=== PATIENT | female | born 1990 | race Caucasian/White ===

== ENCOUNTER → 2018-05-19 14:39 | Outpatient (CLI) | payer BC, SELFPAY ==
[2017-07-29 09:46] VITALS: BMI 56.0
[2018-05-19 15:23] LABS: Hematocrit 40.6 % (37-47); Hemoglobin 13.1 g/dl (12.0-15.0); Mean Corp Hgb Conc 32.3 g/gl (32-36); Mean Corpuscular Hgb 29.8 pg (27.0-32.0); Mean Corpuscular Volume 92.5 fL (81-99); Mean Platelet Vol. 12.5 fl (6.2-12.0); Platelet Count 254 K/mm3 (150-450); RBC Distribution Width CV 14.1 % (11.6-14.6); RBC Distribution Width SD 47.7 fl (35.1-43.9); Red Blood Count 4.39 M/mm3 (4.2-5.4); White Blood Count 6.3 K/mm3 (4.4-11.0)
[2018-05-19 15:24] LABS: Scan Indicated on CBC? Y/N NO
[2018-05-19 15:59] LABS: Vitamin B12 841 pg/mL (211-911)
[2018-05-19 16:33] LABS: AST(SGOT) 25 U/L (15-37); Alanine Aminotransfer ALT/SGPT 55 U/L (13-56); Albumin, Serum 3.7 g/dL (3.2-5.0); Alkaline Phosphatase 62 U/L (45-117); Anion Gap 7 (5-15); BUN 8 mg/dL (7-18); BUN/Creat Ratio 14.3 RATIO (10-20); Calcium,Total 8.8 mg/dL (8.5-10.1); Chloride 109 mmol/L (98-107); Creatinine, Serum 0.56 mg/dL (0.55-1.02); EST Glomerular Filtration Rate 139 mL/min (>60); Est Glom Filt Rate - Afr Amer 168 mL/min (>60); Ferritin 18 ng/mL (8-252); Globulin 3.6 g/dL (2.2-4.2); Glucose 83 mg/dL (74-106); Iron 55 ug/dL (50-170); Potassium 3.6 mmol/L (3.5-5.1); Protein, Total 7.3 g/dL (6.4-8.2); Sodium Level 143 mmol/L (136-145)
[2018-05-23 12:52] LABS: Zinc, Plasma or Serum 79 ug/dL (56-134)
--- OUTSIDE RECORDS SUMMARY | 2018-08-21 07:36 | XMS RPT_ITS | Clinical Summary ---
:1990 Author Organization [facility], [facility] Address [address] [place] [id number] Phone Care Team Providers Name Role Phone Ivelisse Albarran MD Unavailable Conditions or Problems Problem Name Problem Onset Status Entry Provider Comment Standard Annotate Code Date Date Description 73943184 Active Ivelisse Fischer depression (SN / Avis depression CT) Medications Medication Instructions Start Stop Generic Name [facility] Provider Date Date EFFEXOR XR 75 One tablet by / VENLAFAXINE HCL [id number] Ivelisse E MG [id number] mouth daily 16 Avis BUTCHER WELLBUTRIN XL One tablet by / BUPROPION HCL [id number] Ivelisse E 150 MG mouth daily 29 Avis BUTCHER [id number] CELEXA 20 MG One tablet by / CITALOPRAM [id number] Ivelisse Fischer TABS mouth daily 29 HYDROBROCARTER Albarran MD CELEXA 20 MG One tablet by CITALOPRAM [id number] Ivelisse Fischer TABS mouth daily HYDROCAL Albarran MD CELEXA 40 MG 1/2 tab daily / CITALOPRAM [id number] Ivelisse E TABS 29 HYDROBROCARTER Albarran MD CELEXA 40 MG 1/2 tab daily / CITALOPRAM [id number] Ivelisse Fischer TABS HYDROCAL Albarran MD WELLBUTRIN XL One tablet by BUPROPION HCL [id number] Ivelisse E 150 MG mouth daily Avis BUTCHER [id number] Medications Administered No information available. Allergies, Adverse Reactions, Alerts Observed no known allergies at Results Date Name Value Unit Range Flag Description Office Visit: depression MEDS REVIEW Done Documentation of current medications (procedure) FALLRSKASSES No Fall risk assessment ORALTOBACUSE Never Tobacco smoking status NHIS SMOK STATUS Never smoker Tobacco use [facility] Plan of Care Type Date Detail Appointment 11:30 AM Ivelisse Albarran MD, [address], [place], [address], Procedures No information available. Vital Signs Date Name Value Unit Description BMI (Body Mass Index) 54.22 kg/m2 Body Mass Index [Ratio] Body Temperature 98.7 [degF] temperature E&M Body Temperature 37.06 Sabrina temperature in centigrade E&M BP Diastolic 73 mm[Hg] blood pressure, diastolic - 8462-4 BP Systolic 139 mm[Hg] blood pressure, systolic - 8480-6 Heart Rate 76 /min pulse rate E&M - 8867-4 Height 67 [in_us] height E&M - 8302-2 Height 170.18 cm height in centimeters E&M Respiratory Rate 16 /min respiratory rate E&M - 9279-1 Weight Measured 346.2 [lb_av] weight E&M - 3141-9 Weight Measured 157.03 kg weight in kilograms E&M
--- OUTSIDE RECORDS SUMMARY | 2018-08-21 07:36 | XMS RPT_ITS | Clinical Summary ---
:1990 Author Organization [facility], [facility] Address [address] [place] [address] Phone Care Team Providers Name Role Phone Avis BUTCHER, Ivelisse Fischer Unavailable Conditions or Problems Problem Name Problem Onset Status Entry Provider Comment Standard Annotate Code Date Date Description [id number] Active Ivelisse Fischer depression (SN Avis depression CT) Medications Medication Instructions Start Stop Generic Name NDC Provider Date Date WELLBUTRIN XL One tablet by / BUPROPION HCL [id number] Ivelisse Fischer 150 MG mouth daily 29 Avis BUTCHER [id number] CELEXA 20 MG One tablet by / CITALOPRAM [id number] Ivelisse Fischer TABS mouth daily 29 HYDROBROMIDAaliyah Albarran MD CELEXA 40 MG 1/2 tab daily / CITALOPRAM [id number] Ivelisse Fischer TABS 29 HYDROBROCARTER Albarran MD CELEXA 40 MG 1/2 tab daily / CITALOPRAM [id number] Ivelisse Fischer TABS HYDROCAL Albarran MD Medications Administered No information available. Allergies, Adverse Reactions, Alerts Observed no known allergies at Results Date Name Value Unit Range Flag Description Office Visit: depression MEDS REVIEW Done Documentation of current medications (procedure) FALLRSKASSES No Fall risk assessment ORALTOBACUSE Never Tobacco smoking status NHIS SMOK STATUS Never smoker Tobacco use [facility] Plan of Care Type Date Detail Appointment 11:50 AM Ivelisse Albarran MD, [address] [place] [address], [address] Floor, [place], [address], Procedures No information available. Vital Signs Date [...]
--- OUTSIDE RECORDS SUMMARY | 2018-08-21 07:36 | XMS RPT_ITS ---
:1990 Author Organization OHIP Support Name Relationship Address Phone [place] Yañeza Unavailable Unavailable + Yañez, Nate Unavailable Unavailable + YAÑEZ, NATE Unavailable [address] + [place] [address] ROBERT ROCHA Unavailable [address] + [place] [address] UE Unavailable Unavailable Unavailable Yañez, Nate Unavailable Unavailable + Yañez, Nate Unavailable Unavailable + Yañez, Nate Unavailable Unavailable + Yañez, Nate Unavailable Unavailable + Yañez, Nate Unavailable Unavailable + Yañez, Nate Unavailable Unavailable + Yañez, Nate Unavailable Unavailable + Yañez, Nate Unavailable Unavailable + Yañez, Nate Unavailable Unavailable + Yañez, Nate Unavailable Unavailable + Yañez, Nate Unavailable Unavailable + YAÑEZ, NATE Unavailable [address] + [place] [address] UE Unavailable Unavailable Unavailable Yañez, Nate Unavailable Unavailable + Yañez, Nate Unavailable Unavailable + Yañez, Nate Unavailable Unavailable + Yañez, Nate Unavailable Unavailable + Yañez, Nate Unavailable Unavailable + Yañez, Nate Unavailable Unavailable + Yañez, Nate Unavailable Unavailable + Yañez, Nate Unavailable Unavailable + Yañez, Nate Unavailable Unavailable + Yañez, Nate Unavailable Unavailable + Yañez, Nate Unavailable Unavailable + Yañez, Nate Unavailable Unavailable + Yañez, Nate Unavailable Unavailable + Yañez, Nate Unavailable Unavailable + Yañez, Nate Unavailable Unavailable + Yañez, Nate Unavailable Unavailable + YAÑEZ, NATE Unavailable [address] [facility] [address] + [place] [address] UE Unavailable Unavailable Unavailable Care Team Providers Name Role Phone Duc Wolf Attending Unavailable Dane Vargas Referring Unavailable Neha, Karel Primary Care Unavailable Duc Wolf Attending Unavailable VidaltenbeDane barros Referring Unavailable [facility] Primary Care Unavailable BittenbendDane bucio Referring Unavailable Neha, [facility] Primary Care Unavailable Demar Rios Attending Unavailable Demar Rios Attending Unavailable BittenbendDane bucio Referring Unavailable [facility], Karel Primary Care Unavailable Demar Rios Attending Unavailable BittenbenderDane Referring Unavailable [facility] Mart[facility], Karel Primary Care Unavailable Demar Rios Attending Unavailable VidaltenbenderDane Referring Unavailable [facility], Karel Primary Care Unavailable Deamr Rios Attending Unavailable BittenbenderDane Referring Unavailable [facility], Karel Primary Care Unavailable Demar Rios Attending Unavailable BittenbenderDane Referring Unavailable [facility], Karel Primary Care Unavailable Demar Rios Attending Unavailable BittenbenderDane Referring Unavailable Neha, Karel Primary Care Unavailable Margarita Miller Attending Unavailable Vidaltenbender, Dane Referring Unavailable [facility], Karel Primary Care Unavailable BittenbendDane bucio Referring Unavailable Neha, Karel Primary Care Unavailable Duc Wolf Attending Unavailable Duc Wolf Attending Unavailable CliffordbendDane bucio Referring Unavailable Neha, Karel Primary Care Unavailable BittenbendDane bucio Referring Unavailable [facility] Martins, Karel Primary Care Unavailable NING SOTO Attending Unavailable BittenbenderDane Referring Unavailable [facility], Karel Primary Care Unavailable Margarita Miller Attending Unavailable Bittenbender, Dane Referring Unavailable Neha, Karel Primary Care Unavailable Margarita Miller Attending Unavailable BRIDLE, NING Posey Attending Unavailable Bittenbender, Dane Referring Unavailable [facility] Martins, Karel Primary Care Unavailable Margarita Miller Attending Unavailable Bittenbender, Dane Referring Unavailable Neha, Karel Primary Care Unavailable BRIDLE, NING Posey Attending Unavailable Bittenbender, Dane Referring Unavailable [facility] Martins, Karel Primary Care Unavailable Zografakis, Duc Attending Unavailable Bittenbender, Dane Referring Unavailable Neha, Karel Primary Care Unavailable Zografakis, Duc Attending Unavailable Bittenbender, Dane Referring Unavailable [facility] Martins, Karel Primary Care Unavailable Zografakis, Duc Attending Unavailable Bittenbender, Dane Referring Unavailable [facility] Martins, Karel Primary Care Unavailable Bittenbender, Dane Referring Unavailable [facility] Mart[facility], Karel Primary Care Unavailable Zografakis, Duc Attending Unavailable Bittenbender, Dane Referring Unavailable Neha, Karel Primary Care Unavailable Zografakis, Duc Attending Unavailable Bittenbender, Dane Referring Unavailable Neha, Karel Primary Care Unavailable Zografakis, Duc Attending Unavailable Bittenbender, Dane Referring Unavailable Neha, Karel Primary Care Unavailable Alfreda Marques Attending Unavailable Bittenbender, Peter Referring Unavailable [facility] Mart[facility], Karel Primary Care Unavailable BRIDLE, NING Posey Attending Unavailable BRIDLE, NING Posey Attending Unavailable Bittenbender, Dane Referring Unavailable [facility], Karel Primary Care Unavailable BRIDLE, NING Posey Attending Unavailable Bittenbender, Dane Referring Unavailable [facility], Karel Primary Care Unavailable BRIDLE, NING Posey Attending Unavailable Bittenbender, Dane Referring Unavailable Neha, [facility] Primary Care Unavailable Bridle, Ning [employer] Attending Unavailable Bridle, Ning [employer] Referring Unavailable Neha, [facility] Primary Care Unavailable Mona Nazario Attending Unavailable Neha, Karel Referring Unavailable Ivelisse Albarran Attending Unavailable [facility], Karel Referring Unavailable PROBLEMS PROBLEMS DATE TYPE CONDITION / CODE ATTENDING STATUS SOURCE 05/22/2018 Admitting Gastro-esophageal NING SOTO [facility] Diagnosis reflux disease R. System without esophagitis Repository / K21.9(ICD-10) 05/22/2018 Admitting Morbid (severe) NING SOTO Active [facility] Diagnosis obesity due to R. System excess calories / Repository E66.01(ICD-10) 05/22/2018 Admitting Vitamin D NING SOTO Active [facility] Diagnosis deficiency, R. System unspecified / Repository E55.9(ICD-10) 05/22/2018 Admitting Deficiency of NING SOTO Active [facility] Diagnosis multiple nutrient R. 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 System unspecified / Repository K90.9(ICD-10) 05/22/2018 Admitting Body mass index ANUPAMA SOTOA Active [facility] Diagnosis (BMI) 40.0-44.9, R. System adult / Repository Z68.41(ICD-10) 05/22/2018 Admitting Encounter for other NING SOTO Active [facility] Diagnosis specified surgical R. System aftercare / Repository Z48.89(ICD-10) 05/19/2018 Unknown K90.9 - Intestinal Ning Soto Active [place] malabsorption, [employer] Community unspecified / Hospital K90.9(ICD-10) Repository 04/16/2018 Admitting Shortness of breath Zografakis, Active [facility] Diagnosis / R06.02(ICD-10) Duc System Repository 04/16/2018 Admitting Candidal stomatitis Zografakis, Active [facility] Diagnosis / B37.0(ICD-10) Duc System Repository 04/16/2018 Admitting Bariatric surgery Zografakis, Active [facility] Diagnosis status / Duc System Z98.84(ICD-10) Repository 04/09/2018 Admitting Gastro-esophageal Zografakis, Active [facility] Diagnosis reflux disease with Udc System esophagitis / Repository K21.0(ICD-10) 04/09/2018 Admitting Encounter for Zografakis, Active [facility] Diagnosis immunization / Duc System Z23(ICD-10) Repository 04/09/2018 Admitting Body mass index Zografakis, Active [facility] Diagnosis (BMI) 45.0-49.9, Duc System adult / Repository Z68.42(ICD-10) 04/09/2018 Admitting Fatty (change of) Zografakis, Active [facility] Diagnosis liver, not Duc System elsewhere Repository classified / K76.0(ICD-10) 04/09/2018 Admitting Diaphragmatic Zografakis, Active [facility] Diagnosis hernia without Duc System obstruction or Repository gangrene / K44.9(ICD-10) 04/09/2018 Admitting Major depressive Zografakis, Active [facility] Diagnosis disorder, single Duc System episode, Repository unspecified / F32.9(ICD-10) 03/06/2018 Admitting Prediabetes / BRIDLE, NING Active [facility] Diagnosis R73.03(ICD-10) R. System Repository 03/06/2018 Admitting Encounter for BRIDLE, NING Active [facility] Diagnosis screening for R. System diabetes mellitus / Repository Z13.1(ICD-10) 03/06/2018 Admitting Panic disorder Zografakis, Active [facility] Diagnosis [episodic Duc System paroxysmal anxiety] Repository / F41.0(ICD-10) 03/06/2018 Admitting Acute gastritis Zografakis, Active [facility] Diagnosis without bleeding / Duc System K29.00(ICD-10) Repository 03/06/2018 Admitting Body mass index Zografakis, Active [facility] Diagnosis (BMI) 50-59.9, Duc System adult / Repository Z68.43(ICD-10) 01/24/2018 Admitting Encounter for other Zografakis, Active [facility] Diagnosis preprocedural Duc System examination / Repository Z01.818(ICD-10) 12/24/2017 Admitting Body mass index Demar Rios Active [facility] Diagnosis (BMI) 50-59.9 , System adult / Repository Z68.43(ICD-10) 12/24/2017 Admitting Other fatigue / Demar Rios Active [facility] Diagnosis R53.83(ICD-10) System Repository 12/13/2017 Admitting Other specified Miller, Active [facility] Diagnosis eating disorder / Margarita System F50.89(ICD-10) Repository 12/13/2017 Admitting Major depressive Paul, Active [facility] Diagnosis disorder, single Margarita System episode, moderate / Repository F32.1(ICD-10) 11/26/2017 Admitting Obesity, Demar Rios Active [facility] Diagnosis unspecified / System E66.9(ICD-10) Repository 11/26/2017 Admitting Dorsalgia, BRIDLE, NING Active [facility] Diagnosis unspecified / R. System M54.9(ICD-10) Repository 11/26/2017 Admitting Unspecified BRIDLE, NING Active [facility] Diagnosis abdominal pain / R. System R10.9(ICD-10) Repository 11/05/2017 Admitting Unspecified chronic Zografakis, Active [facility] Diagnosis gastritis without Udc System bleeding / Repository K29.50(ICD-10) 11/05/2017 Admitting Other amnesia / Zografakis, Active [facility] Diagnosis R41.3(ICD-10) Duc System Repository 11/05/2017 Admitting Other reduced Zografakis, Active [facility] Diagnosis mobility / Duc System Z74.09(ICD-10) Repository PROCEDURES PROCEDURES No Procedure Records FoundRESULTS RESULTS CBC-COMPLETE BLOOD CNT Collected: 05/19/2018 Status: F Source: JEROME NO DIFF 2:51 PM [facility] REPOSITORY TYPE CODE TESTS RESULT OUT OF RANGE REFERENCE UNITS LAB L100.1000 4.4-11.0 K/mm3 Normal WBC 6.3 LAB L100.1200 4.2-5.4 M/mm3 Normal RBC 4.39 LAB L100.1300 12.0-15.0 g/dl Normal HGB 13.1 LAB L100.1400 37-47 % Normal HCT 40.6 LAB L100.1500 81-99 fL Normal MCV 92.5 LAB L100.1600 27.0-32.0 pg Normal MCH 29.8 LAB L100.1700 32-36 g/gl Normal MCHC 32.3 LAB L100.1810 11.6-14.6 % Normal RDW CV 14.1 LAB L100.1820 35.1-43.9 fl High RDW SD 47.7 LAB L100.1900 150-450 K/mm3 Normal PLT 254 LAB L100.2000 6.2-12.0 fl High MPV 12.5 Performed By: #### L100.0500 #### [facility] [address] [place], [address] VITAMIN B12 Collected: 05/19/2018 Status: F Source: JEROME 2:51 PM [facility] REPOSITORY TYPE CODE TESTS RESULT OUT OF RANGE REFERENCE UNITS LAB L503.0105 211-911 pg/mL Normal Vitamin B12 841 Performed By: #### L503.0105 #### [facility] [address] [place], [place], [id number] COMPREHENSIVE METABOLIC Collected: 05/19/2018 Status: F Source: JEROME VALVERDE 2:51 PM [facility] REPOSITORY Order Comment: Is Patient Taking Vitamins or Folic Acid Supplements? N TYPE CODE TESTS RESULT OUT OF RANGE REFERENCE UNITS LAB L501.0100 74-106 mg/dL Normal GLU 83 Result Comment: Please note revised GLUCOSE reference range effective 2017. LAB L501.1000 7-18 mg/dL Normal BUN 8 LAB L501.1100 0.55-1.02 mg/dL Normal CREAT,SERUM 0.56 Result Comment: The validity of the calculated GFR AND GFRAA in patients over 70 years has not been determined. Clinical correlation is essential. LAB L501.1110 >60 mL/min Normal EST GFR 139 Result Comment: Non- GFR Calc LAB L501.1115 >60 mL/min Normal EST GFR - AA 168 Result Comment: GFR Calc LAB L501.1300 10-20 RATIO Normal BUN/CRE 14.3 LAB L501.1500 6.4-8.2 g/dL T Normal PROT 7.3 LAB L501.1800 3.2-5.0 g/dL Normal ALB 3.7 LAB L501.1950 2.2-4.2 g/dL Normal GLOB 3.6 LAB L501.2000 0.9-2.4 RATIO Normal A/G 1.0 LAB L501.2200 8.5-10.1 mg/dL CA Normal 8.8 LAB L501.4100 15-37 U/L Normal AST 25 LAB L501.4305 45-117 U/L Normal ALK P 62 LAB L501.4405 13-56 U/L Normal ALT 55 LAB L501.4600 0.20-1.00 mg/dL T Normal BILI 0.40 LAB L501.5300 136-145 mmol/L NA Normal 143 LAB L501.5600 3.5-5.1 mmol/L K Normal 3.6 LAB L501.5900 98-107 mmol/L High CL 109 LAB L501.6100 21.0-32.0 mmol/L Normal CO2 27.0 LAB L501.6200 5-15 Normal GAP 7 Performed By: #### L500.4050, L501.5200, L503.6150, L503.6550, L506.0250 #### [facility] [address] [place], [address] MAGNESIUM Collected: 05/19/2018 Status: F Source: [place] 2:51 PM [facility] REPOSITORY Order Comment: Is Patient Taking Vitamins or Folic Acid Supplements? N TYPE CODE TESTS RESULT OUT OF RANGE REFERENCE UNITS LAB L501.5200 1.6-2.6 mg/dL Normal MG 2.0 Performed By: #### L500.4050, L501.5200, L503.6150, L503.6550, L506.0250 #### [facility] [address] [place], [address] IRON Collected: 05/19/2018 Status: F Source: [place] 2:51 PM [facility] REPOSITORY Order Comment: Is Patient Taking Vitamins or Folic Acid Supplements? N TYPE CODE TESTS RESULT OUT OF RANGE REFERENCE UNITS LAB L503.6150 50-170 ug/dL Normal IRON 55 Performed By: #### L500.4050, L501.5200, L503.6150, L503.6550, L506.0250 #### [facility] [address] [place], [address] FERRITIN Collected: 05/19/2018 Status: F Source: [place] 2:51 PM [facility] REPOSITORY Order Comment: Is Patient Taking Vitamins or Folic Acid Supplements? N TYPE CODE TESTS RESULT OUT OF RANGE REFERENCE UNITS LAB L503.6550 8-252 ng/mL Normal FERRITIN 18 Performed By: #### L500.4050, L501.5200, L503.6150, L503.6550, L506.0250 #### [facility] [address] [place], [address] FOLATES, (FOLIC ACID) Collected: 05/19/2018 Status: F Source: [place] 2:51 PM [facility] REPOSITORY Order Comment: Is Patient Taking Vitamins or Folic Acid Supplements? N TYPE CODE TESTS RESULT OUT OF RANGE REFERENCE UNITS LAB L506.0250 3.1-55.4 ng/mL Normal FOLATES 25.10 Performed By: #### L500.4050, L501.5200, L503.6150, L503.6550, L506.0250 #### [facility] [place], [address] ZINC, PLASMA OR Collected: 05/19/2018 Status: F Source: [place] SERUM 2:51 PM [facility] REPOSITORY TYPE CODE TESTS RESULT OUT OF RANGE REFERENCE UNITS LAB L3300.9900 56-134 ug/dL Normal ZINC 79 Plasma/Ser Result Comment: Detection Limit = 5 Performed at: [facility] [address] [id number] Regulatory Auditor: Domo Tamayo MD, Phone: [phone] Performed By: #### L3300.9900 #### [facility] (refer to report for specific site) refer to report for address and phone number DISCHARGE SUMMARY Observed: 04/11/2018 Status: F Source: [employer] 6:19 PM SYSTEM REPOSITORY Discharge Summary Eyad Yañez : 1990 ADMIT DATE: 04/09/2018 DISCHARGE DATE: 04/11/2018 PRIMARY CARE PHYSICIAN: Karel Solomon MD VISIT STATUS: Admission DISCHARGE DIAGNOSES: Principal Problem: Morbid obesity with BMI of 45.0-49.9, adult (HCC) Active Problems: Morbid obesity (HCC) Gastroesophageal reflux disease with esophagitis Hepatic steatosis Hiatal hernia Resolved Problems: * No resolved hospital problems. * HOSPITAL COURSE: Patient was taken to the OR on 11/ for a laparoscopic yair-en-y gastric bypass. Patient tolerated the procedure well without any complications and was admitted to a general surgical floor in stable condition. An UGI was obtained on POD #1 which did not identify any extravasation or leaks. Diet was advanced to a bariatric clear liquid diet which the patient tolerated. The packing was removed on POD#2. SAMEERA removed. Patient was discharged in stable condition on POD#2. DISCHARGE MEDICATIONS: Eyad Yañez Home Medication Instructions ALVAREZ:[id number] Printed on:04/11/18 0131 Medication Information enoxaparin (LOVENOX) 60 MG/0.6ML injection Inject 0.6 mLs into the skin 2 times daily for 10 days omeprazole (PRILOSEC) 20 MG delayed release capsule Take 1 capsule by mouth daily oxyCODONE-acetaminophen (PERCOCET) 5-325 MG per tablet Take 1-2 tablets by mouth every 6 hours as needed for Pain for up to 7 days. Intended supply: 7 days. Take lowest dose possible to manage pain. traZODone (DESYREL) 100 MG tablet Take 100 mg by mouth nightly VITAMIN D, CHOLECALCIFEROL, PO Take 4,000 Int'l Units by mouth daily DIET: bariatric clears ACTIVITY: No restriction. No heavy lifting. up with assist No driving while taking pain medication SIGNIFICANT DIAGNOSTIC STUDIES: UGI-normal COMPLEXITY OF FOLLOW UP: [x] Moderate Complexity: follow up within 7-14 calendar days (55237) PENDING STUDIES: none RECOMMENDED NEXT STEPS: F/u 1 week w/ Dr. Wolf DISPOSITION: Home SIGNED: Esdras Parks MD 04/11/2018, 11:25 PM HEMOGLOBIN AND Collected: 04/11/2018 Status: F Source: [employer] HEMATOCRIT 12:04 PM SYSTEM REPOSITORY TYPE CODE TESTS RESULT OUT OF RANGE REFERENCE UNITS LAB HGB 11.7-16.0 g/dL Normal Hemoglobin 11.7 LAB HCT 35.0-47.0 % Normal Hematocrit 35.3 Performed By: #### HGHCT, BMP3 #### [facility] [address] [place] [phone] BASIC METABOLIC PANEL Collected: 04/11/2018 Status: F Source: [employer] 12:04 PM SYSTEM REPOSITORY TYPE CODE TESTS RESULT OUT OF RANGE REFERENCE UNITS LAB NA3 137-145 mmol/L Sodium Normal 139 LAB K3 3.5-5.1 mmol/L Normal Potassium 4.1 LAB CL3 98-107 mmol/L High Chloride 108 LAB CO23 22-30 mmol/L Carbon Normal Dioxide 25 LAB ANIN3 NA Anion Gap 6 LAB GLUC3 70-100 mg/dL Glucose Normal 97 LAB BUN3 7-20 mg/dL Urea Normal Nitrogen 12 LAB CRET3 0.52-1.25 mg/dL Normal Creatinine 0.62 LAB GF3BR >60 mL/min eGFR > 60.0 LAB GF3WR >60 mL/min eGFR OTHER > 60.0 Result Comment: Source- MDRD equation with creatinine calibration to IDMS(NKDEP) eGFR not recommended for drug dose adjustment LAB CA3 8.4-10.4 mg/dL Normal Calcium 9.1 Performed By: #### HGHCT, BMP3 #### [facility] [address] [place] [address] GLUCOSE,BEDSIDE Collected: 04/11/2018 Status: F Source: [employer] 6:14 AM SYSTEM REPOSITORY TYPE CODE TESTS RESULT OUT OF RANGE REFERENCE UNITS LAB BGLU 70-100 mg/dL Normal 93 Glucose,Beds yehuda Result Comment: Test performed by glucose meter. Results may be 10%-15% lower than serum/plasma values. (CLIA ID [id number]) Performed By: #### BGLU #### [facility] [address] [place] [phone] HEMOGRAM W/ AUTODIFF Collected: 04/11/2018 Status: F Source: [employer] 3:22 AM SYSTEM REPOSITORY TYPE CODE TESTS RESULT OUT OF REFERENCE UNITS RANGE LAB IWBC 3.6-10.7 10*3/uL WBC Normal 9.1 LAB RBC 3.80-5.20 10*6/uL Low RBC 3.36 LAB HGB 11.7-16.0 g/dL Low Hemoglobin 10.3 LAB HCT 35.0-47.0 % Low Hematocrit 30.9 LAB MCV 79.0-98.0 fL MCV Normal 91.9 LAB MCH 26.0-34.0 pg MCH Normal 30.6 LAB MCHC 32.0-36.0 % MCHC Normal 33.3 LAB RDW 11.5-14.5 % RDW Normal 13.9 LAB PLT 140-440 10*3/uL Platelet Normal 161 LAB MPV 7.4-10.4 fL MPV High 11.5 LAB GRAN% 40.0-80.0 % Granulocytes Normal 73.4 LAB LYMP% 20.0-40.0 % Low Lymphocytes 18.2 LAB MONO% 2.0-10.0 % Monocytes Normal 7.8 LAB EOS% 1.0-6.0 % Low Eosinophils 0.4 LAB BAS% 0.0-2.0 % Basophils Normal 0.2 LAB ANC 1.8-7.0 10*3/uL Abs Normal Neutrophile Cnt 6.7 LAB ALC 1.0-4.3 10*3/uL Abs Lymph Cnt Normal 1.7 LAB AMC 0.0-0.8 10*3/uL Abs Monocyte Normal Cnt 0.7 LAB AEC 0.0-0.5 10*3/uL Abs Eosin Cnt Normal 0.0 LAB ABC 0.0-0.2 10*3/uL Abs Baso Cnt Normal 0.0 Performed By: #### HEMDF #### [facility] [address] [place] [phone] RF UGI W/O KUB W/ Observed: 04/10/2018 Status: F Source: [employer] OR W/O DELAY FLM 8:12 AM SYSTEM REPOSITORY Patient Name: EYAD YAÑEZ Fluoroscopy Exam Date/Time 04/10/2018 08:04:29 EST Exam RF UGI w/o KUB and w/ or w/o Delay Flm Ordering Physician MD CARDOZO KELLEN Accession Number [id number] [facility] Codes 52254 () Reason For Exam s/p LRYGB Report GASTROGRAFIN UPPER GI SERIES CLINICAL INDICATION: S/P gastric bypass, postop, day one. Evaluate for leak. COMPARISON: None TECHNIQUE: Gastrografin was administered in the upright position. FLUOROSCOPY TIME: 0.5 minutes FLUOROSCOPIC IMAGES: 19 fluoroscopic spot images were obtained. FINDINGS: Gastrografin was administered orally to the patient in the upright position. The esophagus is of normal course and caliber with no evidence of perforation or extravasation. The gastrojejunostomy is patent with no sign of extravasation or obstruction. The contrast empties readily from the gastric pouch into the jejunum. The jejunal jejunostomy is identified and shows free flow of contrast beyond the metallic clips that identify the anastomosis. There is no sign of obstruction. A surgical drain is noted in the left upper quadrant. IMPRESSION: Post-op changes consistent with gastric bypass surgery. No sign of extravasation or obstruction. Report Dictated on Final Dictated: 04/10/2018 7:32 am Dictating Physician: MD RIBEIRO BRIAN Signed Date and Time: 04/10/2018 11:54 am Signed by: MD QUINTIN, EDITH Transcribed Date and Time: 04/10/2018 8:12 HEMOGRAM W/ AUTODIFF Collected: 04/10/2018 Status: F Source: [employer] 12:36 AM SYSTEM REPOSITORY TYPE CODE TESTS RESULT OUT OF REFERENCE UNITS RANGE LAB IWBC 3.6-10.7 10*3/uL WBC High 20.3 LAB RBC 3.80-5.20 10*6/uL RBC Normal 4.28 LAB HGB 11.7-16.0 g/dL Hemoglobin Normal 12.9 LAB HCT 35.0-47.0 % Hematocrit Normal 38.7 LAB MCV 79.0-98.0 fL MCV Normal 90.5 LAB MCH 26.0-34.0 pg MCH Normal 30.2 LAB MCHC 32.0-36.0 % MCHC Normal 33.4 LAB RDW 11.5-14.5 % RDW Normal 13.6 LAB PLT 140-440 10*3/uL Platelet Normal 183 LAB MPV 7.4-10.4 fL MPV High 11.1 LAB GRAN% 40.0-80.0 % Granulocytes High 94.9 LAB LYMP% 20.0-40.0 % Low Lymphocytes 2.3 LAB MONO% 2.0-10.0 % Monocytes Normal 2.7 LAB EOS% 1.0-6.0 % Low Eosinophils 0.0 LAB BAS% 0.0-2.0 % Basophils Normal 0.1 LAB ANC 1.8-7.0 10*3/uL Abs High Neutrophile Cnt 19.3 LAB ALC 1.0-4.3 10*3/uL Low Abs Lymph Cnt 0.5 LAB AMC 0.0-0.8 10*3/uL Abs Monocyte Normal Cnt 0.6 LAB AEC 0.0-0.5 10*3/uL Abs Eosin Cnt Normal 0.0 LAB ABC 0.0-0.2 10*3/uL Abs Baso Cnt Normal 0.0 Performed By: #### HEMDF, BMP3, MG3 #### [facility] [address] [place] [phone] BASIC METABOLIC PANEL Collected: 04/10/2018 Status: F Source: [employer] 12:36 AM SYSTEM REPOSITORY TYPE CODE TESTS RESULT OUT OF RANGE REFERENCE UNITS LAB NA3 137-145 mmol/L Sodium Normal 138 LAB K3 3.5-5.1 mmol/L Normal Potassium 4.0 LAB CL3 98-107 mmol/L Chloride Normal 104 LAB CO23 22-30 mmol/L Low Carbon Dioxide 21 LAB ANIN3 NA Anion Gap 13 LAB GLUC3 70-100 mg/dL High Glucose 111 LAB BUN3 7-20 mg/dL Urea Normal Nitrogen 11 LAB CRET3 0.52-1.25 mg/dL Normal Creatinine 0.53 LAB GF3BR >60 mL/min eGFR > 60.0 LAB GF3WR >60 mL/min eGFR OTHER > 60.0 Result Comment: Source- MDRD equation with creatinine calibration to IDMS(NKDEP) eGFR not recommended for drug dose adjustment LAB CA3 8.4-10.4 mg/dL Normal Calcium 9.0 Performed By: #### HEMDF, BMP3, MG3 #### [facility] [address] [place] [phone] MAGNESIUM Collected: 04/10/2018 Status: F Source: [employer] 12:36 AM SYSTEM REPOSITORY TYPE CODE TESTS RESULT OUT OF RANGE REFERENCE UNITS LAB MG3 1.6-2.3 mg/dL Normal Magnesium 2.1 Performed By: #### HEMDF, BMP3, MG3 #### [facility] [address] [place] [phone] HEMOGRAM Collected: 04/09/2018 Status: F Source: [employer] 4:18 PM SYSTEM REPOSITORY TYPE CODE TESTS RESULT OUT OF RANGE REFERENCE UNITS LAB IWBC 3.6-10.7 10*3/uL High WBC 18.0 LAB RBC 3.80-5.20 10*6/uL RBC Normal 4.67 LAB HGB 11.7-16.0 g/dL Normal Hemoglobin 14.1 LAB HCT 35.0-47.0 % Normal Hematocrit 42.3 LAB MCV 79.0-98.0 fL MCV Normal 90.6 LAB MCH 26.0-34.0 pg MCH Normal 30.1 LAB MCHC 32.0-36.0 % MCHC Normal 33.2 LAB RDW 11.5-14.5 % RDW Normal 13.7 LAB PLT 140-440 10*3/uL Platelet Normal 201 LAB MPV 7.4-10.4 fL High MPV 10.6 Performed By: #### HEMOG, MG3, BMP3, PHOS3 #### [facility] [address] [place] [phone] MAGNESIUM Collected: 04/09/2018 Status: F Source: [employer] 4:18 PM SYSTEM REPOSITORY TYPE CODE TESTS RESULT OUT OF RANGE REFERENCE UNITS LAB MG3 1.6-2.3 mg/dL Normal Magnesium 2.2 Performed By: #### HEMOG, MG3, BMP3, PHOS3 #### [facility] [employer] [address] [phone] BASIC METABOLIC PANEL Collected: 04/09/2018 Status: F Source: [employer] 4:18 PM SYSTEM REPOSITORY TYPE CODE TESTS RESULT OUT OF RANGE REFERENCE UNITS LAB NA3 137-145 mmol/L Low Sodium 136 LAB K3 3.5-5.1 mmol/L Normal Potassium 4.2 LAB CL3 98-107 mmol/L Chloride Normal 104 LAB CO23 22-30 mmol/L Low Carbon Dioxide 20 LAB ANIN3 NA Anion Gap 12 LAB GLUC3 70-100 mg/dL High Glucose 131 LAB BUN3 7-20 mg/dL Urea Normal Nitrogen 11 LAB CRET3 0.52-1.25 mg/dL Normal Creatinine 0.66 LAB GF3BR >60 mL/min eGFR > 60.0 LAB GF3WR >60 mL/min eGFR OTHER > 60.0 Result Comment: Source- MDRD equation with creatinine calibration to IDMS(NKDEP) eGFR not recommended for drug dose adjustment LAB CA3 8.4-10.4 mg/dL Normal Calcium 9.2 Performed By: #### HEMOG, MG3, BMP3, PHOS3 #### [facility] [employer] [address] [phone] PHOSPHORUS Collected: 04/09/2018 Status: F Source: [employer] 4:18 PM SYSTEM REPOSITORY TYPE CODE TESTS RESULT OUT OF RANGE REFERENCE UNITS LAB PHOS3 2.5-4.5 mg/dL Normal Phosphorus 4.1 Performed By: #### HEMOG, MG3, BMP3, PHOS3 #### [facility] [employer] [address] [phone] Observed: 04/09/2018 Status: F Source: [facility] 2:19 PM SYSTEM REPOSITORY [id number] [facility] PATHOLOGY AND LABORATORY MEDICINE [address] [place] [address] [place] [address] FINAL SURGICAL PATHOLOGY REPORT NAME: BRANDI EYAD Dubose Juan Carlos [id number] : 1990 Y Ollie CLEMENTS NO.: [id number] LOCATION: [facility] PROCEDURE 04/09/2018 DATE: SURGEON: DUC WOLF M.D. RECEIVED 04/10/2018 DATE: ATTENDING: DUC WOLF M.D. REPORT DATE: 04/25/2018 COPIES TO: DIAGNOSIS: LIVER BIOPSY - FRAGMENTS OF HEPATIC PARENCHYMA WITH MILD MACROVESICULAR AND MICROVESICULAR STEATOSIS. COMMENT: The liver biopsy shows approximately 25% macrovesicular and microvesicular steatosis. There is no increased storage iron on the iron stain. Trichrome stain shows no evidence of significant fibrosis. NEREIDA/PHILIPP <Sign Out Signature> MARCO ANTONIO VASQUEZ M.D. CLINICAL INFORMATION: Morbid obesity SPECIMEN: LIVER NEEDLE OR WEDGE BIOPSY, MEDICAL GROSS DESCRIPTION: Liver biopsy Received in formalin is a yellow-mayorga to red-mayorga tissue segment 0.6 cm in greatest dimension. Submitted in toto. (1 ns, 1) JCK/COOPER Disclaimer: The following statement applies to all immunohistochemistry, in situ hybridization, molecular studies, and immunofluorescence testing. The use of one or more reagents in the above tests is regulated as an analyte specific reagent (ASR). These tests were developed and their performance characteristics determined by the clinical laboratories of [facility] [employer] [facility]. They have not been cleared by the US Food and Drug Administration (FDA). The FDA has determined that such clearance or approval is not necessary. All the above immunostains were performed on paraffin embedded tissue. Appropriate positive and negative controls (where applicable) were run in parallel with the patient's specimen; these controls showed expected staining pattern, with acceptable intensity of staining. Immunohistochemical assays have not been validated on decalcified tissues. Results should be interpreted with caution given the raised possibility of false negativity on decalcified specimens. Professional Performing Location: [place] [address]. DEPARTMENT OF PATHOLOGY AND LABORATORY MEDICINE [place], [place] [address] OP NOTE Observed: 04/09/2018 Status: F Source: [employer] 1:05 PM SYSTEM REPOSITORY OPERATIVE NOTE DATE OF PROCEDURE: 04/09/2018 SURGEON: Duc Wolf SALES AGENT [employer]: Maya Cardozo MD PREOPERATIVE DIAGNOSIS: ? GERD ? Hepatic Steatosis ? Morbid Obesity POSTOPERATIVE DIAGNOSIS: ? GERD ? Hiatal Hernia ? Hepatic Steatosis ? Morbid Obesity OPERATION: ? Laparoscopic Yair-en-Y gastric bypass ? Laparoscopic Hiatal Hernia repair ? Laparoscopic Liver Biopsy ? Upper Gastrointestinal Endoscopy ANESTHESIA: General anesthesia ESTIMATED BLOOD LOSS: Minimal. COMPLICATIONS: None SPECIMENS: Liver Biopsy PREOPERATIVE MEDICATIONS: Ancef, Heparin HISTORY: The patient is a 27 y.o. year old female with history of morbid obesity and a BMI of Body mass index is 48.55 kg/m?. CONSENT: The patient was seen and evaluated in the office setting where the procedure was explained to the patient and any questions were answered. An informed consent discussion was held between Dr. Wolf and the patient. Viable alternatives to the proposed procedure, including but not limited to, medical observation under the care of a physician, exercise programs and other weight reductive operative procedures were explained to the patient. Risks to the proposed procedure, including but not limited to hemorrhage requiring transfusion, infection, nerve injury, conversion to open, anastomotic disruption, anastomotic stricture, pneumonia, pulmonary embolus, airway complications, and were explained to the patient. The patient understands the above alternatives and risks and has electively chosen laparoscopic gastric bypass with yair-en-y reconstruction and wishes to proceed. ? TECHNIQUE: The patient was taken to the operating room and placed in the supine position. After successful induction of general endotracheal anesthesia by the anesthesia department an orogastric tube was placed to decompress the stomach. The patient was placed in the split leg lithotomy position and care was taken to pad the exposed extremities. The patient's abdomen was prepped and draped in the normal sterile fashion. A 12-mm Optiview trocar was placed in the left subcostal position in the midclavicular line and access to abdominal cavity was obtained under visualization. Pneumoperitoneum was then established without complications. After evaluation of the abdominal contents from this trocar position, five other 12-mm ports were placed under direct visualization. One at the umbilicus, one 2-3 cm above the umbilicus, one at the subxyphoid area, one in the right subcostal margin in the midclavicular line and the last one further lateral to the original Optiview port. A solution of 0.5% Marcaine was used to infiltrate the subcutaneous tissues prior to trocar placement. Upon evaluation of the diaphragm, there was a hiatal hernia noted, both anteriorly and posteriorly. Because of the abnormal visual inspection of the diaphragm the hiatal hernia was repaired. The phrenoesophageal ligament was divided using hook electrocautery exposing the left patti of the diaphragm. We continued our dissection along the anterior crural arch from left to right. The gastrohepatic ligament was incised using Bovie electrocautery, the peritoneum overlying the junction of the transversely passing fat pad at the base of the right patti was incised. We bluntly mobilized the esophagus, and reduced the GE junction into the abdomen by 5 cm. A Kati drain was used to provide appropriate retraction. The anterior and posterior vagus nerves were identified and circumferential complete mobilization was performed. Multiple sutures of 0 Surgidac were used to reapproximate the left and right patti around the lighted 50-English bougie. At this point, the bougie was removed, we proceeded with gastric pouch formation. ? After decompression of the stomach with the orogastric tube, the orogastric tube and any esophageal probes were removed from the patient. The stomach was grasped using a Tc forceps and we measured five to seven centimeters from the Angle of His along the lesser curvature. The Nerve of Latarjet was identified and preserved. We made a window along the lesser curvature with the Harmonic Scalpel and began the kerwin-gastric dissection. This allowed entry into the lesser sac. Once the lesser sac was entered, a 60-mm x 3.5-mm YRIS stapler was used to come across the stomach in a horizontal fashion. 60-mm x 3.5-mm staple loads were used to progress cephalad toward the Angle of His. A 30-cc gastric pouch was created. After this was done, the Orvil anvil for the EEA stapler was placed transorally. This anvil is attached to an 18 Fr. orogastric tube and was placed by anesthesia without complications. The orogastric tube was seen in the gastric remnant. The harmonic scalpel was used to make a gastrotomy, and the orogastric tube was pulled out of the gastric remnant. At this point, the orogastric tube was detached from the anvil, and removed, leaving the anvil in the gastric remnant. ? Having successfully completed our small gastric pouch and anvil placement, we turned our attention to dividing the greater omentum. This was accomplished with the harmonic scalpel. After this, we identified the ligament of Treitz and went 50-cm distal to that. A 3-[address] then [address] to mayito the proximal bowel and then we divided the bowel using a 60-mm x 2.5-mm YRIS stapler. The mesentery was also transected using a white staple load with a buttress reinforcement. We then measured distal on the small bowel and oriented our bowel to create the jejunojejunostomy. An enterotomy was created in each limb with the harmonic scalpel and using the Triple-Stapling Technique created a fyop-iz-zzej jejunojejunostomy. 60-mm x 2.5-mm staple loads were utilized. The opening was evaluated for hemostasis and care was taken to make sure that the posterior wall of the anastomosis was free. The remaining defect was closed with one or more firings of a 60-mm x 2.5-mm linear stapler. Numerous sutures of 3-0 Vicryl were used to close the defect of the mesentery at the jejunojejunostomy. ? After this was done we brought the efferent limb all the way up to the gastric pouch, in between our previously created defect in the greater omentum. The staple line on the jejunum was opened using the harmonic scalpel and after enlarging the lateral trocar site, the 25-mm EEA stapler was introduced into the abdomen and into the open jejunum. Using the EEA stapler, we performed our gastrojejunostomy. The stapler was removed and two complete donuts were identified. The open-ended jejunum was closed using a 60-mm x 2.5-mm YRIS stapler and bowel continuity reestablished. This amputated piece of jejunum was placed into an Endopouch and removed from the abdomen. ? Having restored bowel continuity, we placed multiple interrupted sutures to reinforce the gastrojejunal anastomosis. Interrupted 3-0 Vicryl sutures were placed laterally, posterolaterally and anteriorly so that we could circumferentially reinforce the anastomosis. The bowel was pink and viable, and there was no tension on the anastomosis. Having completed our reinforcement sutures, we then proceeded with checking the anastomosis for leakage. ? After completing the gastrojejunostomy, upper GI endoscopy was performed in order to evaluate the integrity of the anastomosis. The Olympus gastroscope was introduced through the mouth, through the esophagus and into the small gastric pouch. The anastomosis was widely patent. The lateral gastric staple line and gastrojejunal anastomosis were hemostatic. The scope easily passed through the anastomosis into the jejunum. The anastomosis was submerged under irrigation placed in the abdomen. There was no evidence of air extravasation on the intraoperative leak test performed. The air was evacuated and the scope removed from the patient. A fully perforated Brandin drain was left posterior to the anastomosis and brought out through a separate RUQ stab wound. ? Intra-abdominal evaluation of the liver identified enlargement of the left and right lobe of the liver and as a result of the grossly abnormal visual inspection of the liver a liver biopsy was performed. A liver biopsy was performed with a laparoscopic wedge liver biopsy forceps. We sent two pieces to pathology for permanent sectioning. Bovie electrocautery was used to obtain hepatic hemostasis. The abdomen was then copiously irrigated and checked for hemostasis. The effluent was evacuated from the abdomen and then we turned our attention to closure of the trocar sites. ? The On-Q pain catheter system with two catheters was placed under direct visualization without difficulty at the left lateral trocar site. ? At this point, prior to evacuation of the pneumoperitoneum, we closed all our ports with the laparoscopic suture fascial closure device using 0-Vicryl. The pneumoperitoneum was then evacuated. The LLQ wound was irrigated using 1000 cc of Bactitracin infused solution. The wound was left open and packed using Nu-Gauze wick. The rest of the port sites were closed using 4-0 Monocryl in a running subcuticular fashion. Steri-Strips were applied to the wounds, the patient was awakened from anesthesia, extubated and taken to recovery in stable condition. ? [facility] Data Collection Sheet Start Time: 1331 Stop Time: 1518 Clinical Quality Assurance Associate: [x] Resident [] Fellow [] PA/FOREST SUPERVISOR/MACHINE OPERATOR ASSISTANT [] Attending - Weight Loss Surgeon ASA Class: [] 1 [] 2 [x] 3 []4 [] 5 Surgical Approach: [x] Conventional laparoscopic [] Robotic-assisted [] Open Was the procedure converted to another approach? [] Yes [x] No Was the case aborted? [] Yes [x] No Was a drain placed at the time of the initial operation? [x] Yes [] No Was a swallow study performed the day of or the day after the procedure? [x] Yes [] No Was the anastomotic/staple line checked with a provocative test to assess for leak? [x] Yes [] No Was this a stapling procedure: [x] Yes [] No Other Procedures: ? EGD ? Liver Biopsy ? Hiatal hernia repair ,URINE QUAL Collected: 04/09/2018 Status: F Source: [employer] 12:25 PM SYSTEM REPOSITORY TYPE CODE TESTS RESULT OUT OF REFERENCE UNITS RANGE LAB HCGUR Negative NA Negative HCG,Urine Qual Result Comment: is the most common reason for HCG in urine, although choriocarcinoma, hydatidiform mole, and certain nontropho- blastic malignancies also result in detectable urinary HCG levels. Sensitivity = 20mIU/mL. Performed By: #### HCGUR #### [facility] [address] [place] [phone] BASIC METABOLIC PANEL Collected: 04/02/2018 Status: F Source: [employer] 1:13 PM SYSTEM REPOSITORY TYPE CODE TESTS RESULT OUT OF RANGE REFERENCE UNITS LAB NA3 137-145 mmol/L Sodium Normal 142 LAB K3 3.5-5.1 mmol/L Normal Potassium 4.5 LAB CL3 98-107 mmol/L Chloride Normal 103 LAB CO23 22-30 mmol/L Carbon Normal Dioxide 26 LAB ANIN3 NA Anion Gap 13 LAB GLUC3 70-100 mg/dL Low Glucose 61 LAB BUN3 7-20 mg/dL Urea Normal Nitrogen 14 LAB CRET3 0.52-1.25 mg/dL Normal Creatinine 0.52 LAB GF3BR >60 mL/min eGFR > 60.0 LAB GF3WR >60 mL/min eGFR OTHER > 60.0 Result Comment: Source- MDRD equation with creatinine calibration to IDMS(NKDEP) eGFR not recommended for drug dose adjustment LAB CA3 8.4-10.4 mg/dL Normal Calcium 9.3 Performed By: #### BMP3 #### [facility] [address] [place] [phone] CR CHEST PA/LAT Observed: 03/06/2018 Status: F Source: [employer] 1:54 PM SYSTEM REPOSITORY Patient Name: EYAD YAÑEZ Diagnostic Radiology Exam Date/Time 03/06/2018 13:38:30 EDT Exam CR Chest PA/LAT Ordering Physician HAMILTON SOTO LEISA R. Accession Number [id number] CPT4 Codes 03398 () Reason For Exam gastroesophageal reflux disease with esophagitis, SOB on exertion, pre diabetic Report EXAM TYPE: RADIOLOGIC EXAMINATION, CHEST, two views. EXAM DATE AND TIME: 03/06/2018 1:38 PM EDT INDICATION: Reflux disease. Short of breath on exertion. COMPARISON: None available. TECHNIQUE: Two views of the thorax were obtained and reviewed. Special views: None. Findings: 1. Lines/Tubes/Devices/Hardware: None. 2. Lungs: No consolidation or pulmonary edema. 3. Pleura: No pneumothorax or pleural effusions. 4. Heart and mediastinum: Normal cardiomediastinal contours. IMPRESSION: No acute pulmonary process Report Dictated on Final Dictated: 03/06/2018 1:54 pm Dictating Physician: MD MARTÍNEZ JOHN Signed Date and Time: 03/06/2018 1:55 pm Signed by: MD MARTÍNEZ JOHN Transcribed Date and Time: 03/06/2018 1:54 HEMOGLOBIN A1C Collected: 03/06/2018 Status: F Source: [employer] 12:51 PM SYSTEM REPOSITORY TYPE CODE TESTS RESULT OUT OF RANGE REFERENCE UNITS LAB A1C2 4.0-5.7 % Normal Hemoglobin A1C 4.9 Result Comment: --HgbA1C levels may not be accurate in patients who have renal disease, received recent blood transfusions, are anemic, or who have dyshemoglobinemia. LAB EAG2 mg/dL Estimated Avg Glucose 94 Performed By: #### HA1C2, HEMOG, ALB3, BMP3 #### [facility] [address] [place] [phone] HEMOGRAM Collected: 03/06/2018 Status: F Source: [employer] 12:51 PM SYSTEM REPOSITORY TYPE CODE TESTS RESULT OUT OF RANGE REFERENCE UNITS LAB IWBC 3.6-10.7 10*3/uL High WBC 12.1 LAB RBC 3.80-5.20 10*6/uL RBC Normal 4.50 LAB HGB 11.7-16.0 g/dL Normal Hemoglobin 13.7 LAB HCT 35.0-47.0 % Normal Hematocrit 40.2 LAB MCV 79.0-98.0 fL MCV Normal 89.4 LAB MCH 26.0-34.0 pg MCH Normal 30.3 LAB MCHC 32.0-36.0 % MCHC Normal 34.0 LAB RDW 11.5-14.5 % RDW Normal 13.6 LAB PLT 140-440 10*3/uL Platelet Normal 259 LAB MPV 7.4-10.4 fL MPV Normal 10.1 Performed By: #### HA1C2, HEMOG, ALB3, BMP3 #### [facility] [address] [place] [phone] ALBUMIN, SERUM Collected: 03/06/2018 Status: F Source: [employer] 12:51 PM SYSTEM REPOSITORY TYPE CODE TESTS RESULT OUT OF RANGE REFERENCE UNITS LAB ALB3 3.5-5.0 g/dL Normal Albumin, 4.4 Serum Performed By: #### HA1C2, HEMOG, ALB3, BMP3 #### [facility] [address] [phone] BASIC METABOLIC PANEL Collected: 03/06/2018 Status: F Source: [employer] 12:51 PM SYSTEM REPOSITORY TYPE CODE TESTS RESULT OUT OF RANGE REFERENCE UNITS LAB NA3 137-145 mmol/L Sodium Normal 141 LAB K3 3.5-5.1 mmol/L Normal Potassium 4.5 LAB CL3 98-107 mmol/L Chloride Normal 104 LAB CO23 22-30 mmol/L Carbon Normal Dioxide 28 LAB ANIN3 NA Anion Gap 9 LAB GLUC3 70-100 mg/dL Glucose Normal 71 LAB BUN3 7-20 mg/dL Urea Normal Nitrogen 13 LAB CRET3 0.52-1.25 mg/dL Normal Creatinine 0.52 LAB GF3BR >60 mL/min eGFR > 60.0 LAB GF3WR >60 mL/min eGFR OTHER > 60.0 Result Comment: Source- MDRD equation with creatinine calibration to IDMS(NKDEP) eGFR not recommended for drug dose adjustment LAB CA3 8.4-10.4 mg/dL Normal Calcium 9.5 Performed By: #### HA1C2, HEMOG, ALB3, BMP3 #### [facility] [employer] [address] [phone] VITAMIN B1,WHOLE Collected: 11/26/2017 Status: F Source: [employer] BLOOD 2:45 PM SYSTEM REPOSITORY Order Comment: REDRAW TYPE CODE TESTS RESULT OUT OF REFERENCE UNITS RANGE LAB WBB1R 70-180 nmol/L Vitamin 116 B1,Whole Blood Result Comment: INTERPRETIVE INFORMATION: Vitamin B1, Whole Blood This assay measures the concentration of thiamine diphosphate (TDP), the primary active form of vitamin B1. Approximately 90 percent of vitamin B1 present in whole blood is TDP. Thiamine and thiamine monophosphate, which comprise the remaining 10 percent, are not measured. Test developed and characteristics determined by [employer]. See Compliance Statement B: [employer] Performed by [employer], [address] [place] [id number] [email or web address], Shawn Santillan MD - Lab. Director Performed By: #### WBB1O #### The performing lab is in the report. Observed: 11/05/2017 Status: F Source: [facility] 8:57 AM SYSTEM REPOSITORY [id number] [facility] PATHOLOGY AND LABORATORY MEDICINE [address] [place] [address] FINAL SURGICAL PATHOLOGY REPORT NAME: EYAD YAÑEZ : 1990 27 Y F BILLING NO.: [id number] LOCATION: [id number] PROCEDURE 11/05/2017 DATE: SURGEON: DUC WOLF M.D. RECEIVED 11/05/2017 DATE: ATTENDING: DUC WOLF M.D. REPORT DATE: 11/06/2017 COPIES TO: DIAGNOSIS: A. GASTRIC ANTRUM, BIOPSY - MILD CHRONIC GASTITIS WITH FOCAL INTESTINAL METAPLASIA. COMMENT: Evaluation of the H&E-stained sections shows no evidence of Helicobacter pylori or any morphologic features to suggest infection with the organism; as such, further studies for Helicobacter are not indicated. Reference: Frances KIRK et al. Appropriate use of special stains for identifying Helicobacter pylori: Recommendations from the [employer] C. Hagg[employer] Gastrointestinal [employer] Society. Am J Surg Pathol. 2013 Nov;37(11):e12-22. B. DISTAL ESOPHAGUS, BIOPSY - FRAGMENTS OF SQUAMOUS MUCOSA WITH REFLUX-RELATED FEATURES. SMT/YANET <Sign Out Dr. Sanon> S DAYLIN MELARA M.D. CLINICAL INFORMATION: Abdominal pain and GERD SPECIMEN: (A) GASTRIC BIOPSY (B) ESOPHAGUS BIOPSY GROSS DESCRIPTION: A. Stomach - antrum Received in formalin is a segment of mayorga tissue 0.2 cm. Submitted in toto. (1 ns 1) B. Distal esophagus Received in formalin are two segments of mayorga tissue 0.3 cm each. Submitted in toto. (2 ns, 1) JCK/JAF Disclaimer: The following statement applies to all immunohistochemistry, in situ hybridization, molecular studies, and immunofluorescence testing. The use of one or more reagents in the above tests is regulated as an analyte specific reagent (ASR). These tests were developed and their performance characteristics determined by the clinical laboratories of [facility]. They have not been cleared by the US Food and Drug Administration (FDA). The FDA has determined that such clearance or approval is not necessary. All the above immunostains were performed on paraffin embedded tissue. Appropriate positive and negative controls (where applicable) were run in parallel with the patient's specimen; these controls showed expected staining pattern, with acceptable intensity of staining. Immunohistochemical assays have not been validated on decalcified tissues. Results should be interpreted with caution given the raised possibility of false negativity on decalcified specimens. Professional Performing Location: [address] [address]. DEPARTMENT OF PATHOLOGY AND LABORATORY MEDICINE [place], [place] [address] PROGRESS Observed: 10/27/2017 Status: COMPLETED Source: [place] 12:28 PM [facility] REPOSITORY HNO ID: [id number] Author: Lauren Daigle Service: (none) Author Type: Nurse Practitioner Type: Progress Notes Filed: 10/27/2017 12:40 PM Note Text: Subjective The history is provided by the patient. No deaf interpreter was used. Ear Pain Pertinent negatives include no chest pain, chills, congestion, coughing, fever, headaches, myalgias, rash or sore throat. HPI Eyad Yañez is a 27 year old female who presents today for CC of Left ear pain. This started 4-5 days ago and is worsening. She is also having left sided lower jaw pain. Symptoms are worsened by nothing. She has tried tylenol. Risk factors none iknown. PMH h/o seasonal allergies, AOM in past year. BP 120/68 Pulse 78 Temp 37.4 ?C (99.4 ?F) (Left Tympanic) Resp 16 Wt (!) 154.2 kg (340 lb) BMI 53.25 kg/m? 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 Negative for chills, fever and malaise/fatigue. HENT: Positive for ear pain (left). Negative for congestion, sinus pain and sore throat. Jaw pain Respiratory: Negative for cough, sputum production, shortness of breath and wheezing. Cardiovascular: Negative for chest pain. Musculoskeletal: Negative for myalgias. Skin: Negative for rash. Neurological: Negative for headaches. Objective Physical Exam Constitutional: She is well-developed, well-nourished, and in no distress. HENT: Head: Normocephalic and atraumatic. Right Ear: Tympanic membrane, external ear and ear canal normal. Tympanic membrane is not injected, not erythematous, not retracted and not bulging. No middle ear effusion. Left Ear: External ear and ear canal normal. Tympanic membrane is injected, erythematous and retracted. Tympanic membrane is not bulging. A middle ear effusion (suppurative) is present. Nose: Nose normal. Right sinus exhibits no maxillary sinus tenderness and no frontal sinus tenderness. Left sinus exhibits no maxillary sinus tenderness and no frontal sinus tenderness. Mouth/Throat: Uvula is midline, oropharynx is clear and moist and mucous membranes are normal. No oropharyngeal exudate, posterior oropharyngeal edema, posterior oropharyngeal erythema or tonsillar abscesses. Eyes: Conjunctivae and EOM are normal. Pupils are equal, round, and reactive to light. Neck: Normal range of motion. Cardiovascular: Normal rate, regular rhythm and normal heart sounds. Pulmonary/Chest: Effort normal and breath sounds normal. No respiratory distress. She has no wheezes. She has no rales. Lymphadenopathy: Head (right side): No submental, no submandibular, no tonsillar, no preauricular and no posterior auricular adenopathy present. Head (left side): No submental, no submandibular, no tonsillar, no preauricular and no posterior auricular adenopathy present. She has no cervical adenopathy. Right cervical: No posterior cervical adenopathy present. Left cervical: No posterior cervical adenopathy present. Right: No supraclavicular adenopathy present. Left: No supraclavicular adenopathy present. Skin: Skin is warm and dry. Psychiatric: Affect normal. Nursing note and vitals reviewed. ASSESSMENT/PLAN: 1. Acute suppurative otitis media of left ear - ICD9: 382.00, ICD10: H66.005 - Will begin treatment with Amoxicillin for 10 days - Supportive care with plenty of fluids, rest, and tylenol or ibuprofen for pain Zyrtec 10 mg or Claritin By mouth daily at bedtime daily for 10 days Flonase 1 or nasonex spray each nostril two times a day. GO TO THE ER IF: 1. You have a severe headache or pain around the ear. 2. You notice swelling around the ear. 3. You have a seizure (convulsion), twitching of the facial muscles, or passes out. 4. You are dizzy, have a stiff neck, or cannot walk or talk normally. * Seek medical care immediately, call 911, go to ER if you have chest pain, difficulty breathing, shortness of breath, inability to swallow. - Follow up in one week if symptoms persist or worsen. Diagnosis and treatment plan were discussed and questions were answered to the patient's satisfaction. Pt acknowledged understanding of concepts and follow up plan. Specific signs and symptoms that would indicate the need for higher level of care were discussed in detail warranting prompt ER evaluation. Lauren Daigle APRN.CNP CNOV Observed: 10/27/2017 Status: COMPLETED Source: [place] 12:15 PM [facility] Office Visit ([facility]) EYAD YAÑEZ ([id number]) 1990 F Date Time Provider Department 10/27/17 12:15 PM LAUREN DAIGLE (BRAYAN) WS During your visit today, we recorded the following information about you: Temperature Pulse Respiration Blood pressure 99.4 degrees 78/minute 16/minute 120/68 Weight 154.2 kg Lauren Daigle APRN.CNP 10/27/2017 12:40 PM Signed Subjective The history is provided by the patient. No deaf interpreter was used. Ear Pain Pertinent negatives include no chest pain, chills, congestion, coughing, fever, headaches, myalgias, rash or sore throat. HPI Eyad Yañez is a 27 year old female who presents today for CC of Left ear pain. This started 4-5 days ago and is worsening. She is also having left sided lower jaw pain. Symptoms are worsened by nothing. She has tried tylenol. Risk factors none iknown. PMH h/o seasonal allergies, AOM in past year. BP 120/68 Pulse 78 Temp 37.4 ?C (99.4 ?F) (Left Tympanic) Resp 16 Wt (!) 154.2 kg (340 lb) BMI 53.25 kg/m? 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 Negative for chills, fever and malaise/fatigue. HENT: Positive for ear pain (left). Negative for congestion, sinus pain and sore throat. Jaw pain Respiratory: Negative for cough, sputum production, shortness of breath and wheezing. Cardiovascular: Negative for chest pain. Musculoskeletal: Negative for myalgias. Skin: Negative for rash. Neurological: Negative for headaches. Objective Physical Exam Constitutional: She is well-developed, well-nourished, and in no distress. HENT: Head: Normocephalic and atraumatic. Right Ear: Tympanic membrane, external ear and ear canal normal. Tympanic membrane is not injected, not erythematous, not retracted and not bulging. No middle ear effusion. Left Ear: External ear and ear canal normal. Tympanic membrane is injected, erythematous and retracted. Tympanic membrane is not bulging. A middle ear effusion (suppurative) is present. Nose: Nose normal. Right sinus exhibits no maxillary sinus tenderness and no frontal sinus tenderness. Left sinus exhibits no maxillary sinus tenderness and no frontal sinus tenderness. Mouth/Throat: Uvula is midline, oropharynx is clear and moist and mucous membranes are normal. No oropharyngeal exudate, posterior oropharyngeal edema, posterior oropharyngeal erythema or tonsillar abscesses. Eyes: Conjunctivae and EOM are normal. Pupils are equal, round, and reactive to light. Neck: Normal range of motion. Cardiovascular: Normal rate, regular rhythm and normal heart sounds. Pulmonary/Chest: Effort normal and breath sounds normal. No respiratory distress. She has no wheezes. She has no rales. Lymphadenopathy: Head (right side): No submental, no submandibular, no tonsillar, no preauricular and no posterior auricular adenopathy present. Head (left side): No submental, no submandibular, no tonsillar, no preauricular and no posterior auricular adenopathy present. She has no cervical adenopathy. Right cervical: No posterior cervical adenopathy present. Left cervical: No posterior cervical adenopathy present. Right: No supraclavicular adenopathy present. Left: No supraclavicular adenopathy present. Skin: Skin is warm and dry. Psychiatric: Affect normal. Nursing note and vitals reviewed. ASSESSMENT/PLAN: 1. Acute suppurative otitis media of left ear - ICD9: 382.00, ICD10: H66.005 - Will begin treatment with Amoxicillin for 10 days - Supportive care with plenty of fluids, rest, and tylenol or ibuprofen for pain Zyrtec 10 mg or Claritin By mouth daily at bedtime daily for 10 days Flonase 1 or nasonex spray each nostril two times a day. GO TO THE ER IF: 1. You have a severe headache or pain around the ear. 2. You notice swelling around the ear. 3. You have a seizure (convulsion), twitching of the facial muscles, or passes out. 4. You are dizzy, have a stiff neck, or cannot walk or talk normally. * Seek medical care immediately, call 911, go to ER if you have chest pain, difficulty breathing, shortness of breath, inability to swallow. - Follow up in one week if symptoms persist or worsen. Diagnosis and treatment plan were discussed and questions were answered to the patient's satisfaction. Pt acknowledged understanding of concepts and follow up plan. Specific signs and symptoms that would indicate the need for higher level of care were discussed in detail warranting prompt ER evaluation. Lauren Daigle APRN.BRAYAN Daigle APRN.BRAYAN 10/27/2017 12:35 PM Signed ASSESSMENT/PLAN: 1. Acute suppurative otitis media of left ear - ICD9: 382.00, ICD10: H66.005 - Will begin treatment with Amoxicillin for 10 days - Supportive care with plenty of fluids, rest, and tylenol or ibuprofen for pain Zyrtec 10 mg or Claritin By mouth daily at bedtime daily for 10 days Flonase 1 or nasonex spray each nostril two times a day. GO TO THE ER IF: 1. You have a severe headache or pain around the ear. 2. You notice swelling around the ear. 3. You have a seizure (convulsion), twitching of the facial muscles, or passes out. 4. You are dizzy, have a stiff neck, or cannot walk or talk normally. * Seek medical care immediately, call 911, go to ER if you have chest pain, difficulty breathing, shortness of breath, inability to swallow. - Follow up in one week if symptoms persist or worsen. Referring Provider: SELF [200] Allergies As of Date: 10/27/2017 (No Known Allergies) Date Reviewed: 10/27/2017 Reviewed by: Juanita Jennings LPN - Fully Assessed Reason for Visit: Ear Pain [817] Cmt: x 4-5 days left ear pain Primary Visit Diagnosis:Acute suppurative otitis media of left ear [H66.005] Order(s):amoxicillin (AMOXIL) 875 mg tabletTake 1 tablet by mouth twice daily for 10 days.Disp: 20 tabletRfl: 0 Prescriptions as of 10/27/2017 Sig: AMOXICILLIN 875 MG TABLET Take 1 tablet by mouth twice * CITALOPRAM 40 MG TABLET Take 1 tablet by mouth once d* Patient not taking: Reported on 10/27/2017 EAR DROPS OTIC Use in the ears. ORAL Take by mouth. Problem List As Of Date 10/27/2017 Noted Resolved , supervision, normal, first [Z34.00] INVALID FOR*07/06/2015 More... Obesity [E66.9] INVALID FOR* GBS (group B streptococcus) UTI complicating pr*INVALID FOR*07/06/2015 Normal repeat , antepartum [Z34.90] INVALID FOR*10/15/2016 More... Short interval between pregnancies affecting pr*INVALID FOR*10/15/2016 Other instructions from your clinician: ASSESSMENT/PLAN: 1. Acute suppurative otitis media of left ear - ICD9: 382.00, ICD10: H66.005 - Will begin treatment with Amoxicillin for 10 days - Supportive care with plenty of fluids, rest, and tylenol or ibuprofen for pain Zyrtec 10 mg or Claritin By mouth daily at bedtime daily for 10 days Flonase 1 or nasonex spray each nostril two times a day. GO TO THE ER IF: 1. You have a severe headache or pain around the ear. 2. You notice swelling around the ear. 3. You have a seizure (convulsion), twitching of the facial muscles, or passes out. 4. You are dizzy, have a stiff neck, or cannot walk or talk normally. * Seek medical care immediately, call 911, go to ER if you have chest pain, difficulty breathing, shortness of breath, inability to swallow. - Follow up in one week if symptoms persist or worsen. Prescriptions ordered this encounter Disp Refills Start End AMOXICILLIN 875 MG TABLET 20 t* 0 10/27/2017 11/06/2017 Route: ORAL Sig: Take 1 tablet by mouth twice daily for 10 days. Encounter Status:Closed by LAUREN DAIGLE CNP on 10/27/17 [place] Observed: 10/22/2017 Status: COMPLETED Source: [place] 12:00 AM [facility] Patient Outreach ([facility]) EYAD YAÑEZ ([id number]) 1990 F Date Time Provider Department 10/22/17 KAREL SOLOMON [facility] During your visit today, we recorded the following information about you: Allergies As of Date: 10/22/2017 (No Known Allergies) Date Reviewed: 11/07/2016 Reviewed by: Yamileth Donnelly Ma - Fully Assessed Visit Diagnosis:Medication management [Z79.899] Order(s):HGB A1C [BSMRN7H] Order #: [id number] FUTURE Prescriptions as of 10/22/2017 Sig: CITALOPRAM 40 MG TABLET Take 1 tablet by mouth once d* Patient not taking: Reported on 10/27/2017 EAR DROPS OTIC Use in the ears. ORAL Take by mouth. Problem List As Of Date 10/22/2017 Noted Resolved , supervision, normal, first [Z34.00] INVALID FOR*07/06/2015 More... Obesity [E66.9] INVALID FOR* GBS (group B streptococcus) UTI complicating pr*INVALID FOR*07/06/2015 Normal repeat , antepartum [Z34.90] INVALID FOR*10/15/2016 More... Short interval between pregnancies affecting pr*INVALID FOR*10/15/2016 Encounter Status:Closed by AYDEE NOWAK on 03/14/18 HEMOGRAM Collected: 10/15/2017 Status: F Source: [employer] 5:36 PM SYSTEM REPOSITORY TYPE CODE TESTS RESULT OUT OF RANGE REFERENCE UNITS LAB IWBC 3.6-10.7 10*3/uL High WBC 12.2 LAB RBC 3.80-5.20 10*6/uL RBC Normal 4.60 LAB HGB 11.7-16.0 g/dL Normal Hemoglobin 14.1 LAB HCT 35.0-47.0 % Normal Hematocrit 41.8 LAB MCV 79.0-98.0 fL MCV Normal 91.0 LAB MCH 26.0-34.0 pg MCH Normal 30.8 LAB MCHC 32.0-36.0 % MCHC Normal 33.8 LAB RDW 11.5-14.5 % RDW Normal 13.5 LAB PLT 140-440 10*3/uL Platelet Normal 251 LAB MPV 7.4-10.4 fL High MPV 10.7 Performed By: #### HEMOG, LIPD2, CMP3, MG3, IRON3, TSH4, FERR3, B12, FOLT3 #### [employer] [address] [place] [phone] #### VD25H #### [employer] [facility] [address] [place] [address] LIPID PANEL Collected: 10/15/2017 Status: F Source: [employer] 5:36 PM SYSTEM REPOSITORY TYPE CODE TESTS RESULT OUT OF REFERENCE UNITS RANGE LAB 3CHOL < 200 mg/dL Cholesterol Normal 137 LAB 3TRIG <150 mg/dL Triglyceride Normal 130 LAB HDLC 40-60 mg/dL HDL Normal Cholesterol 42 LAB LDL4 <100 mg/dL Low Density Normal Lipoprotein 69 LAB CHLHD NA Chol/HDL 3 Result Comment: Ref Range: < 3 Low Risk for CHD 3-6 Mod Risk for CHD > 6 High Risk for CHD Performed By: #### HEMOG, LIPD2, CMP3, MG3, IRON3, TSH4, FERR3, B12, FOLT3 #### [employer] [address] [place] [phone] #### VD25H #### [employer] [facility] [address] [place] [address] COMP METABOLIC PANEL Collected: 10/15/2017 Status: F Source: [employer] 5:36 PM SYSTEM REPOSITORY TYPE CODE TESTS RESULT OUT OF RANGE REFERENCE UNITS LAB NA3 137-145 mmol/L Sodium Normal 141 LAB K3 3.5-5.1 mmol/L Normal Potassium 3.9 LAB CL3 98-107 mmol/L Chloride Normal 103 LAB CO23 22-30 mmol/L Carbon Normal Dioxide 26 LAB ANIN3 NA Anion Gap 13 LAB GLUC3 70-100 mg/dL Glucose Normal 96 LAB BUN3 7-20 mg/dL Urea Normal Nitrogen 12 LAB CRET3 0.52-1.25 mg/dL Normal Creatinine 0.60 LAB GF3BR >60 mL/min eGFR > 60.0 LAB GF3WR >60 mL/min eGFR OTHER > 60.0 Result Comment: Source- MDRD equation with creatinine calibration to IDMS(NKDEP) eGFR not recommended for drug dose adjustment LAB CA3 8.4-10.2 mg/dL Calcium Normal 9.5 LAB ALB3 3.5-5.0 g/dL Albumin, Serum Normal 4.6 LAB TP3 6.3-8.2 g/dL Total Protein Normal 7.4 LAB BILT3 0.2-1.3 mg/dL Normal Bilirubin,Total 0.5 LAB ALKP3 38-126 U/L Alkaline Normal Phosphatase 58 LAB ALT3 13-69 U/L ALT (SGPT) Normal 45 LAB AST3 15-46 U/L AST (SGOT) Normal 26 Performed By: #### HEMOG, LIPD2, CMP3, MG3, IRON3, TSH4, FERR3, B12, FOLT3 #### [employer] [address] [place] [phone] #### VD25H #### [employer] [facility] [address] [place] [address] MAGNESIUM Collected: 10/15/2017 Status: F Source: [employer] 5:36 PM SYSTEM REPOSITORY TYPE CODE TESTS RESULT OUT OF RANGE REFERENCE UNITS LAB MG3 1.6-2.3 mg/dL Normal Magnesium 2.0 Performed By: #### HEMOG, LIPD2, CMP3, MG3, IRON3, TSH4, FERR3, B12, FOLT3 #### [employer] [address] [place] [phone] #### VD25H #### [employer] [facility] [address] [facility] [place] [address] IRON, TOTAL Collected: 10/15/2017 Status: F Source: [employer] 5:36 PM SYSTEM REPOSITORY TYPE CODE TESTS RESULT OUT OF RANGE REFERENCE UNITS LAB IRON3 37-170 ug/dL Normal Iron, 50 Total Performed By: #### HEMOG, LIPD2, CMP3, MG3, IRON3, TSH4, FERR3, B12, FOLT3 #### [employer] [address] [place] [address] #### VD25H #### [employer] [address] [place] [address] THYROID STIM. Collected: 10/15/2017 Status: F Source: [employer] 5:36 PM SYSTEM REPOSITORY TYPE CODE TESTS RESULT OUT OF RANGE REFERENCE UNITS LAB TSH4 0.465-4.680 uU/mL Normal Thyroid Stim. 0.670 Hormone Performed By: #### HEMOG, LIPD2, CMP3, MG3, IRON3, TSH4, FERR3, B12, FOLT3 #### [employer] [address] [place] [address] #### VD25H #### [employer] [address] [place] [address] FERRITIN Collected: 10/15/2017 Status: F Source: [employer] 5:36 PM SYSTEM REPOSITORY TYPE CODE TESTS RESULT OUT OF RANGE REFERENCE UNITS LAB 3FERR 8-252 ng/mL Normal Ferritin 42 Performed By: #### HEMOG, LIPD2, CMP3, MG3, IRON3, TSH4, FERR3, B12, FOLT3 #### [employer] [address] [place] [address] #### VD25H #### [employer] [address] [place] [address] VITAMIN B12 Collected: 10/15/2017 Status: F Source: [employer] 5:36 PM SYSTEM REPOSITORY TYPE CODE TESTS RESULT OUT OF RANGE REFERENCE UNITS LAB B12 239-931 pg/mL Normal Vitamin B12 594 Performed By: #### HEMOG, LIPD2, CMP3, MG3, IRON3, TSH4, FERR3, B12, FOLT3 #### [employer] [address] [place] [address] #### VD25H #### [employer] [address] [place] [address] FOLATE Collected: 10/15/2017 Status: F Source: [employer] 5:36 PM SYSTEM REPOSITORY TYPE CODE TESTS RESULT OUT OF RANGE REFERENCE UNITS LAB 3FOLT 2.8-20.0 ng/mL Normal Folate 10.9 Performed By: #### HEMOG, LIPD2, CMP3, MG3, IRON3, TSH4, FERR3, B12, FOLT3 #### [employer] [address] [phone] #### VD25H #### [employer] [facility] [address] [place] [address] VIT D 25-OH, TOTAL Collected: 10/15/2017 Status: F Source: [employer] 5:36 PM SYSTEM REPOSITORY TYPE CODE TESTS RESULT OUT OF RANGE REFERENCE UNITS LAB VD25H 30-100 ng/mL Low Vit D 19 25-OH, Total Result Comment: Therapy is based on measurement of Total 25-OHD with the following classification levels: Less than 20 ng/mL: Indicative of Vit D deficiency 20-30 ng/mL: Suggests Vit D insufficiency Optimal: Greater than or equal to 30 ng/mL Test performed by [employer] Competitive Immunoassay, measuring Total Vitamin D, not individual fractions. Performed By: #### HEMOG, LIPD2, CMP3, MG3, IRON3, TSH4, FERR3, B12, FOLT3 #### [employer] [address] [place] [phone] #### VD25H #### [employer] [place] [address] [place] [address] ZINC, SERUM Collected: 10/15/2017 Status: F Source: [employer] 5:36 PM SYSTEM REPOSITORY TYPE CODE TESTS RESULT OUT OF REFERENCE UNITS RANGE LAB ZINCR 60-120 ug/dL Zinc, 68 Serum Result Comment: INTERPRETIVE INFORMATION: Zinc, Serum or Plasma Circulating zinc concentrations are dependent on albumin status and are depressed with malnutrition. Zinc may also be lowered with infection, inflammation, stress, oral contraceptives, and . Zinc may be elevated with zinc supplementation or fasting. Elevated zinc concentrations may interfere with copper absorption. Test developed and characteristics determined by [facility]. See Compliance Statement B: [email or web address] Performed by [facility], [address] [place] [id number] [email or web address], Shawn Santillan MD - Lab. Director Performed By: #### ZINC2 #### The performing lab is in the report. US ABDOMEN COMPLETE Observed: 10/04/2017 Status: F Source: [employer] 3:32 PM SYSTEM REPOSITORY Patient Name: EYAD YAÑEZ Ultrasound Exam Date/Time 10/04/2017 13:38:26 EDT Exam US Abdomen Complete Ordering Physician HAMILTON SOTO LEISA R. Accession Number [id number] CPT4 Codes 66043 () Reason For Exam Gastroesophageal reflux disease without esophagitis (K21.9 [ICD-10-CM] 530.81 [ICD-9-CM]); SOBOE (shortness of breath on exertion) (R06.02 [ICD- 10-CM] 786.05 [ICD-9-CM]); Back pain, unspecified back location, unspecified b...reason exceeds allotted space Report CLINICAL INFORMATION: Abdominal pain. Sonogram of the abdomen is performed. The liver is normal in echotexture. No hyper or hypo echoic masses are seen. There is no intrahepatic biliary ductal dilatation. The gallbladder is normally distended. There are no gallstones, internal echoes, wall thickening, or pericholecystic fluid collections. The common bile duct diameter of 2.1 mm is within normal limits. The pancreas is homogenous in echo texture. No obvious pancreatic mass or peripancreatic fluid collection is identified. Cursory examination of the kidneys is performed. The right kidney measures 12.1 x 5.4 x 4.9 cm. The left kidney measures 12.9 x 4.4 x 6.3. There is no hydronephrosis. There is no ascites. The spleen is normal in size, measuring 12.9 x 4.4 x 6.3 cm. The visualized portions of the aorta and inferior vena cava are within normal limits. IMPRESSION: Unremarkable ultrasound of the abdomen. Report Dictated on Final Dictated: 10/04/2017 3:32 pm Dictating Physician: MD VALENTINE, NATE Signed Date and Time: 10/04/2017 3:33 pm Signed by: MD VALENTINE, NATE Transcribed Date and Time: 10/04/2017 3:32 ACCOUNTS RECEIVABLE EXECUTIVE OFFICE VISIT Observed: 07/29/2017 Status: F Source: [facility] REPORT 10:13 AM [facility] [address] [place] [address] OFFICE VISIT Date of Service: 07/29/17 MR#: [id number] Acct: [id number] Name: EYAD YAÑEZ Rep #: [id number] : 1990 Provider: Ivelisse Albarran MD Age/Sex: 27/F [place] [facility] [place]: Signed Intake Vital Signs07/29/17 Height 5 ft 7 in 07/29/17 Weight: 357 lb 8 oz 07/29/17 Body Mass Index (BMI) 56.0 07/29/17 Blood Pressure 134/83 Intake Visit Reasons: Medication issue Chief Complaint: Med Check, Rash on chest [employer] Officer Required: No Is patient in pain?: No Allergies No Known Allergies Allergy (Verified 07/29/17 09:47) Medications nystatin-triamcinolone 100,000 unit/gram-0.1 % topical ointment 1 applic TOPICAL TID #15 g 07/29/17 [Rx Confirmed 07/29/17] trazodone 100 mg tablet 100 mg PO QHS #30 tab 07/29/17 [Rx Confirmed 07/29/17] venlafaxine ER 75 mg capsule,extended release 24 hr 75 mg PO QDAY 07/29/17 [History Confirmed 07/29/17] Is last menstrual period known: Yes Last Menstral Period: 07/15/17 Post menopausal: No Patient : No : No [facility] Medical History Depression (Acute) Family History Mother Heart disease Grandmother Diabetes Heart disease Grandfather No problems noted. 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 she was on celexa in the past and she has been stable on the effexor and then the last two weeks she had a significant recurrence of depression symptoms and trouble sleeping at night. she is also having an itchy rash in between her breasts. Female Reproductive History Last Menstral Period: 07/15/17 Pregancy History 2 Elective abortions Hx Para 2 Spontaneous abortions Past Pregnancies Del. DatName [place]/WeeksOutcome Route [facility] LocaProviderFOB e ht en ia tn Unknown 2014 Nika a Unknown 2015 Ore n ROS Const Constitutional: Reports difficulty sleeping Skin Skin/Breast: Reports as per HPI Psych Psych: Reports as per HPI Exam Const General: cooperative, healthy appearing, comfortable, no acute distress Nutritional Appearance: obese morbidy Chest Breast inspection: other (inter breast rash rasied and itchy, scaling possible candidal also) Assessment AND Plan Problems 1. Recurrent major depressive disorder, in partial remission F33.41 effexor and trazodone, failed celexa and wellbutirn 2. Dermatitis L30.9 Plan see problem list details, meds ordered. Medications New: Coding Level of Care Code Off vis,est,level 4 Diagnoses Recurrent major depressive disorder, in partial remission F33.41 Depression Type: major depressive disorder Major depression recurrence: recurrent Active/Remission status: in partial remission Dermatitis L30.9 07/29/17 1013 <Electronically signed by Ivelisse Albarran MD> Date Ivelisse Albarran MD Cosigner Signature: Date (if applicable) CC: ALLERGIES ALLERGIES DATE TYPE / CODE NAME / CODE REACTION SEVERITY SOURCE 07/29/2017 Drug No Known Unknown [place] [facility] Allergy/416 Allergies/C39767 [facility] 418429(SNOM 0388(RXNORM) Repository ED CT) Drug NO KNOWN [facility] Class/08946 ALLERGIES Main [place] 1003(SNOMED Repository CT) ENCOUNTERS ENCOUNTERS ADMIT/DISCHARGE ACCOUNT NUMBER ADMITTING ENCOUNTER LOCATION SOURCE CLASS 05/23/2018 [id number] [facility] 05/22/2018 [id number] [facility] 05/19/2018 [id number] Ambulatory [facility] Hospital ding:LAB Repository 04/16/2018 [id number] [facility] 04/09/2018 [id number] Inpatient [facility] Encounter 6WRoom: System [id number]: Repository [id number] 04/02/2018 [id number] [facility] 04/02/2018 [id number] [facility] 04/02/2018 [id number] [facility] 03/24/2018 [id number] [facility] 03/06/2018 [id number] [facility] 03/06/2018 [id number] [facility] 03/06/2018 [id number] [facility] 02/20/2018 [id number] [facility] 01/24/2018 [id number] [facility] 01/23/2018 [id number] Ambulatory [facility] Repository 01/20/2018 [id number] [facility] 12/24/2017 [id number] [facility] 12/13/2017 [id number] [facility] 11/28/2017 [id number] [facility] 11/26/2017 [id number] [facility] 11/26/2017 [id number] [facility] 11/12/2017 [id number] [facility] 11/05/2017 [id number] [facility] Rep[facility] 10/27/2017/10/30/19 [id number] Ambulatory [address] Repository 10/17/2017 [id number] [facility] 10/15/2017 [id number] [facility] 10/15/2017 [id number] [facility] 10/14/2017 [id number] [facility] 10/04/2017 [id number] [facility] Rep[facility] 09/17/2017 [id number] [facility] 09/10/2017 [id number] [facility] Rep[facility] 09/05/2017 [id number] [facility] Rep[facility] 07/29/2017 [id number] Ambulatory BMSBuilding: [place] [facility] Repository PAYERS PAYERS ENCOUNTER GUARANTOR PAYER SUBSCRIBER SOURCE 05/23/2018 Eyad L Primary [facility]ad L [facility] [place]: [place]OB: System Cross Blue [id number] Repository Pr ShieldPolicy [facility]: [facility] Effective Date: [place] [address]Vnk: () 05/22/2018 Eyad L Primary nate [facility] Health [place]DOB: Insurance:[place]DOB: System Cross Blue [id number] Repository Pr ShieldPolicy Number: [facility], Effective Date: [place] [address]Kzm: () 05/19/2018 EYAD L Primary ROBERT Fentonoster [id number] Insurance:ANTHEMPolic NYHARTDOB: [facility] Private y Number: [id number], [id number] Repository [place] [address]Pnt: Date:1986-88-67VK [address] [place] [address] () [address]HJ: 05/19/2018 Secondary NOT GIVENUNK [place] Insurance:SELF PAY [facility] Number: Effective Repository Date:2018-05-19 04/16/2018 Eyad L Primary nate [facility] Health ComptonDOB: Insurance:[place]DOB: System Cross Blue [id number] Repository Pr ShieldPolicy Number: [facility] Effective Date: [place] [address]Dyb: (HP) 04/09/2018 Eyad L Primary nate [facility] [place]DOB: Insurance:[place]DOB: System Cross Blue [id number] Repository Pr ShieldPolicy Number: [address], Effective Date: [place] [address]Cez: (HP) 04/02/2018 Eyad L Primary nate [facility] [place]DOB: Insurance:[place]DOB: System Cross Blue [id number] Repository Pr ShieldPolicy Number: [address], Effective Date: [place] [address]Xji: (HP) 04/02/2018 Eyad L Primary nate [facility] [place]DOB: Insurance:[place]DOB: System Cross Blue [id number] Repository Pr ShieldPolicy Number: [id number], Effective Date: [place] [address]Gck: (HP) 04/02/2018 Eyad L Primary nate [facility] ComptonDOB: Insurance:[place]DOB: System Cross Blue [id number] Repository Pr ShieldPolicy Number: [id number], Effective Date: [place] [address]Slu: (HP) 03/24/2018 Eyad L Primary Eyad L [facility] ComptonDOB: Insurance:[place]DOB: System Cross Blue [id number] Repository Pr ShieldPolicy Number: [id number], Effective Date: [place] [address]Xqw: (HP) 03/06/2018 Eyad L Primary nate [facility] ComptonDOB: Insurance:[place]DOB: System Cross Blue [id number] Repository Pr ShieldPolicy Number: [id number], Effective Date: [place] [address]Uqg: (HP) 03/06/2018 Eyad L Primary nate [facility] ComptonDOB: Insurance:[place]DOB: System Cross Blue [id number] Repository Pr ShieldPolicy Number: [id number], Effective Date: [place] [address]Qwk: () 03/06/2018 Eyad Dubose Primary nate [facility] [place]DOB: Insurance:[place]DOB: System Cross Blue [id number] Repository Pr ShieldPolicy Number: [id number], Effective Date: [place] [address]Auc: (HP) 02/20/2018 Eyad L Primary Eyad [facility] ComptonDOB: Insurance:[place]DOB: System Cross Blue [id number] Repository Pr ShieldPolicy Number: [facility], Effective Date: [place] [address]Ils: () 01/24/2018 Eyad L Primary Eyad [facility] ComptonDOB: Insurance:Self [place]DOB: System PayPolicy Number: [id number] Repository Pr Effective Date: [facility] [place] [address]Gpj: () 01/23/2018 Eyad Primary NATE [id number] Insurance:ANTHEMPolic COMPTONDOB: Community Private Road y Number: [id number] [address] [id number] [place]ository [place] [address]Wjx: Date:2804-56-59RM [address] [place] [address] () [address]JB: 01/23/2018 Secondary NOT GIVENUNK [place] Insurance:SELF PAY [facility]: Effective Repository Date:2018-01-21 01/20/2018 Eyad L Primary Eyad [facility] ComptonDOB: Insurance:[place]DOB: System Cross Blue [id number] Repository Pr ShieldPolicy Number: [id number], Effective Date: [place] [address]Arn: (HP) 12/24/2017 Eyad L Primary Eyad L [facility] ComptonDOB: Insurance:[place]DOB: System Cross Blue [id number] Repository Pr ShieldPolicy Number: [id number], Effective Date: [place] [address]Tne: (HP) 12/13/2017 Eyad L Primary Eyad L [facility] ComptonDOB: Insurance:[place]DOB: System Cross Blue [id number] Repository Pr ShieldPolicy Number: [id number], Effective Date: [place] [address]Vcj: (HP) 11/28/2017 Eyad L Primary Eyad L [facility] ComptonDOB: Insurance:Self [place]DOB: System PayPolicy Number: [id number] Repository Pr Effective Date: [address] [place] [address]Ucs: (HP) 11/26/2017 Eyad L Primary Eyad L [facility] ComptonDOB: Insurance:[place]DOB: System Cross Blue [id number] Repository Pr ShieldPolicy Number: [id number], Effective Date: [place] [address]Hlv: (HP) 11/26/2017 Eyad L Primary Eyad L [facility] ComptonDOB: Insurance:[place]DOB: System Cross Blue [id number] Repository Pr ShieldPolicy Number: [id number], Effective Date: [place] [address]Dpg: (HP) 11/12/2017 Eyad L Primary Eyad L [facility] ComptonDOB: Insurance:[place]DOB: System Cross Blue [id number] Repository Pr ShieldPolicy Number: [id number], Effective Date: [place] [address]Xkk: (HP) 11/05/2017 Eyad L Primary Eyad L [facility] ComptonDOB: Insurance:[place]DOB: System Cross Blue [id number] Repository Pr ShieldPolicy Number: [id number], Effective Date: [place] [address]Hto: (HP) 10/17/2017 Eyad L Primary Eyad L [facility] ComptonDOB: Insurance:Blue ComptonDOB: System CrossPolicy Number: [id number] Repository Pr Effective Date: - [address], 2017-10-31 [place] [address]Jan: (HP) 10/15/2017 Eyad L Primary Eyad L [facility] ComptonDOB: Insurance:[place]DOB: System Cross Blue [id number] Repository Pr ShieldPolicy Number: [id number], Effective Date: - [place] [address]Krv: 2017-10-31 (HP) 10/15/2017 Eyad L Primary [facility] [place]DOB: Insurance:[place]DOB: System Cross Blue [id number] Repository Pr ShieldPolicy Number: [id number], Effective Date: - [place] [address]Jlm: 2017-10-31 (HP) 10/14/2017 Eyad L Primary Eyad L [facility] ComptonDOB: Insurance:[place]DOB: System Cross [place] [id number] Repository Pr ShieldPolicy Number: [id number], Effective Date: - [place] [address]Khn: 2017-10-31 (HP) 10/04/2017 Eyad L Primary [facility]ad L [facility] [place]DOB: Insurance:[place]DOB: System [employer] [place] [id number] Repository Pr ShieldPolicy Number: [id number], Effective Date: - [place] [address]Zns: 2017-10-31 () 09/17/2017 Eyad L Primary Eyad [facility] ComptonDOB: Insurance:[place]DOB: System Cross Decisy[place] [id number] Repository Pr ShieldPolicy Number: [id number], Effective Date: [place] [address]Soz: () 09/10/2017 Eyad L Primary Eyad [facility] ComptonDOB: Insurance:Self [place]DOB: System PayPolicy Number: [id number] Repository Pr Effective Date: [facility] [place] [address]Mod: () 09/05/2017 Eyad L Primary Eyad [facility]ose [facility] [place]DOB: Insurance:[place]DOB: System Cross Decisyon [id number] Repository Pr ShieldPolicy Number: [facility], Effective Date: [place] [address]Jfr: () 07/29/2017 Eyad Primary NATE [id number] Insurance:ANTHEMPolic COMPTONDOB: [address] y Number: [id number], [id number] Repository [place] [address]Rrr: Date:[id number] [address], [place] () [address]RD: 07/29/2017 Secondary NOT GIVENUNK [place] Insurance:SELF PAY [facility]: Effective Repository Date:2017-07-26
== END ==
PROVIDERS: Family Provider Family Medicine; PCP Family Medicine; Referring Provider Registered Nurse Nephrology; Visit Provider Registered Nurse Nephrology
DX: K90.9 Intestinal malabsorption, unspecified (principal); E55.9 Vitamin D deficiency, unspecified; R06.02 Shortness of breath; E66.01 Morbid (severe) obesity due to excess calories; E61.7 Deficiency of multiple nutrient elements
CPT/HCPCS: 36415; 80053; 82607; 82728; 82746; 83540; 83735; 84630; 85027

== ENCOUNTER → 2018-07-22 12:28 | Outpatient (CLI) | payer BC, SELFPAY ==
[2017-07-29 09:46] VITALS: BMI 56.0
[2018-07-22 13:35] LABS: Hematocrit 44.3 % (37-47); Hemoglobin 14.2 g/dl (12.0-15.0); Mean Corp Hgb Conc 32.1 g/gl (32-36); Mean Corpuscular Hgb 29.3 pg (27.0-32.0); Mean Corpuscular Volume 91.3 fL (81-99); Mean Platelet Vol. 12.8 fl (6.2-12.0); Platelet Count 216 K/mm3 (150-450); RBC Distribution Width CV 13.9 % (11.6-14.6); RBC Distribution Width SD 46.1 fl (35.1-43.9); Red Blood Count 4.85 M/mm3 (4.2-5.4); White Blood Count 8.5 K/mm3 (4.4-11.0)
[2018-07-22 13:41] LABS: Scan Indicated on CBC? Y/N NO
[2018-07-22 14:05] LABS: Vitamin B12 628 pg/mL (211-911)
[2018-07-22 14:36] LABS: ALB/GLOB Ratio 1.1 RATIO (0.9-2.4); AST(SGOT) 18 U/L (15-37); Alanine Aminotransfer ALT/SGPT 35 U/L (13-56); Albumin, Serum 3.8 g/dL (3.2-5.0); Alkaline Phosphatase 69 U/L (45-117); Anion Gap 10 (5-15); BUN 11 mg/dL (7-18); BUN/Creat Ratio 19.6 RATIO (10-20); Calcium,Total 9.1 mg/dL (8.5-10.1); Chloride 107 mmol/L (98-107); Creatinine, Serum 0.56 mg/dL (0.55-1.02); EST Glomerular Filtration Rate 139 mL/min (>60); Est Glom Filt Rate - Afr Amer 168 mL/min (>60); Ferritin 11 ng/mL (8-252); Globulin 3.6 g/dL (2.2-4.2); Glucose 71 mg/dL (74-106); Iron 68 ug/dL (50-170); Magnesium 2.1 mg/dL (1.6-2.6); Potassium 3.8 mmol/L (3.5-5.1); Protein, Total 7.4 g/dL (6.4-8.2); Sodium Level 143 mmol/L (136-145)
[2018-07-24 08:16] LABS: Zinc, Plasma or Serum 70 ug/dL (56-134)
== END ==
PROVIDERS: Family Provider Family Medicine; PCP Family Medicine; Referring Provider Registered Nurse Nephrology; Visit Provider Registered Nurse Nephrology
DX: E63.8 Other specified nutritional deficiencies (principal); K90.9 Intestinal malabsorption, unspecified; R06.02 Shortness of breath; E55.9 Vitamin D deficiency, unspecified; E66.01 Morbid (severe) obesity due to excess calories
CPT/HCPCS: 36415; 80053; 82607; 82728; 82746; 83540; 83735; 84630; 85027

== ENCOUNTER → 2018-10-11 11:22 | Outpatient (CLI) | payer BC, SELFPAY ==
[2018-10-11 12:20] LABS: Hematocrit 41.6 % (37-47); Hemoglobin 13.8 g/dl (12.0-15.0); Mean Corp Hgb Conc 33.2 g/gl (32-36); Mean Corpuscular Hgb 30.1 pg (27.0-32.0); Mean Corpuscular Volume 90.8 fL (81-99); Mean Platelet Vol. 12.5 fl (6.2-12.0); Platelet Count 214 K/mm3 (150-450); RBC Distribution Width CV 14.6 % (11.6-14.6); RBC Distribution Width SD 48.4 fl (35.1-43.9); Red Blood Count 4.58 M/mm3 (4.2-5.4); Scan Indicated on CBC? Y/N NO; White Blood Count 7.5 K/mm3 (4.4-11.0)
[2018-10-11 13:31] LABS: ALB/GLOB Ratio 1.1 RATIO (0.9-2.4); AST(SGOT) 16 U/L (15-37); Alanine Aminotransfer ALT/SGPT 30 U/L (13-56); Albumin, Serum 3.9 g/dL (3.2-5.0); Alkaline Phosphatase 67 U/L (45-117); Anion Gap 10 (5-15); BUN 10 mg/dL (7-18); Calcium,Total 9.2 mg/dL (8.5-10.1); Chloride 104 mmol/L (98-107); Creatinine, Serum 0.62 mg/dL (0.55-1.02); EST Glomerular Filtration Rate 122 mL/min (>60); Est Glom Filt Rate - Afr Amer 148 mL/min (>60); Ferritin 17 ng/mL (8-252); Globulin 3.4 g/dL (2.2-4.2); Glucose 75 mg/dL (74-106); Iron 104 ug/dL (50-170); Magnesium 2.1 mg/dL (1.6-2.6); Protein, Total 7.3 g/dL (6.4-8.2); Sodium Level 139 mmol/L (136-145)
[2018-10-13 10:16] LABS: Vitamin B12 451 pg/mL (211-911)
[2018-10-14 10:42] LABS: Zinc, WHOLE BLOOD 635 ug/dL (440-860)
== END ==
PROVIDERS: Family Provider Family Medicine; PCP Family Medicine
DX: E61.7 Deficiency of multiple nutrient elements (principal); E55.9 Vitamin D deficiency, unspecified; E66.01 Morbid (severe) obesity due to excess calories; K90.9 Intestinal malabsorption, unspecified; K21.0 Gastro-esophageal reflux disease with esophagitis
CPT/HCPCS: 36415; 80053; 82607; 82728; 82746; 83540; 83735; 84630; 85027

== ENCOUNTER → 2019-04-13 11:36 | Outpatient (CLI) | payer BC, SELFPAY ==
[2017-07-29 09:46] VITALS: BMI 56.0
[2019-04-13 12:35] LABS: Hematocrit 40.2 % (37-47); Hemoglobin 12.9 g/dL (12.0-15.0); Mean Corp Hgb Conc 32.1 g/dL (32-36); Mean Corpuscular Hgb 30.3 pg (27.0-32.0); Mean Corpuscular Volume 94.4 fL (81-99); Mean Platelet Vol. 11.7 fl (6.2-12.0); Platelet Count 226 K/mm3 (150-450); RBC Distribution Width CV 13.2 % (11.6-14.6); RBC Distribution Width SD 45.8 fl (35.1-43.9); Red Blood Count 4.26 M/mm3 (4.2-5.4); White Blood Count 6.9 K/mm3 (4.4-11.0)
[2019-04-13 13:16] LABS: Vitamin B12 1880 pg/mL (211-911); Vitamin D,25 Hydroxy 46.4 ng/mL (29.95-100.01)
[2019-04-13 13:57] LABS: ALB/GLOB Ratio 1.2 RATIO (0.9-2.4); AST(SGOT) 13 U/L (15-37); Alanine Aminotransfer ALT/SGPT 21 U/L (13-56); Albumin, Serum 3.7 g/dL (3.2-5.0); Alkaline Phosphatase 61 U/L (45-117); BUN 11 mg/dL (7-18); Chloride 104 mmol/L (98-107); Cholesterol 142 mg/dL (200); Creatinine, Serum 0.52 mg/dL (0.55-1.02); EST Glomerular Filtration Rate 149 mL/min (>60); Est Glom Filt Rate - Afr Amer 180 mL/min (>60); Globulin 3.1 g/dL (2.2-4.2); Glucose 77 mg/dL (74-106); Potassium 3.7 mmol/L (3.5-5.1); Protein, Total 6.8 g/dL (6.4-8.2); Sodium Level 139 mmol/L (136-145); Triglycerides 87 mg/dL
[2019-04-13 13:58] LABS: Anion Gap 8 (5-15); Ferritin 22 ng/mL (8-252); High Density Lipoprotein 63 mg/dL; Iron 135 ug/dL (50-170); Very Low Density Lipoprotein 17 mg/dL (5-40)
[2019-04-15 14:56] LABS: Vitamin B1, Thiamine 153.1 nmol/L (66.5-200.0)
[2019-04-15 15:38] LABS: Zinc, Plasma or Serum 61 ug/dL (56-134)
== END ==
PROVIDERS: Family Provider Family Medicine; PCP Family Medicine; Referring Provider Registered Nurse Nephrology; Visit Provider Registered Nurse Nephrology
DX: E61.7 Deficiency of multiple nutrient elements (principal); K90.9 Intestinal malabsorption, unspecified; E55.9 Vitamin D deficiency, unspecified
CPT/HCPCS: 36415; 80053; 80061; 82306; 82607; 82728; 82746; 83540; 83735; 84425; 84630; 85027

== ENCOUNTER → 2020-08-03 13:30 | Outpatient (CLI) | payer BC, SELFPAY ==
[2020-08-03 14:36] LABS: Hemoglobin 12.9 g/dL (12.0-15.0); Mean Corp Hgb Conc 32.3 g/dL (32-36); Mean Corpuscular Hgb 30.5 pg (27.0-32.0); Mean Corpuscular Volume 94.6 fL (81-99); Mean Platelet Vol. 11.5 fl (6.2-12.0); Platelet Count 219 K/mm3 (150-450); RBC Distribution Width CV 13.1 % (11.6-14.6); RBC Distribution Width SD 44.6 fl (35.1-43.9); Red Blood Count 4.23 M/mm3 (4.2-5.4); White Blood Count 6.7 K/mm3 (4.4-11.0)
[2020-08-03 15:06] LABS: Vitamin B12 1726 pg/mL (211-911); Vitamin D,25 Hydroxy 49.4 ng/mL
[2020-08-03 15:42] LABS: ALB/GLOB Ratio 1.3 RATIO (0.9-2.4); AST(SGOT) 17 U/L (15-37); Alanine Aminotransfer ALT/SGPT 23 U/L (13-56); Albumin, Serum 3.9 g/dL (3.2-5.0); Alkaline Phosphatase 59 U/L (45-117); Anion Gap 3 (5-15); BUN 12 mg/dL (7-18); BUN/Creat Ratio 21.9 RATIO (10-20); Calcium,Total 8.9 mg/dL (8.5-10.1); Chloride 106 mmol/L (98-107); Cholesterol 143 mg/dL (200); Creatinine, Serum 0.55 mg/dL (0.55-1.02); EST Glomerular Filtration Rate 140 mL/min (>60); Est Glom Filt Rate - Afr Amer 170 mL/min (>60); Ferritin 26 ng/mL (8-252); Globulin 3.1 g/dL (2.2-4.2); Glucose 74 mg/dL (74-106); High Density Lipoprotein 73 mg/dL; Iron 154 ug/dL (50-170); Magnesium 2.3 mg/dL (1.6-2.6); Potassium 3.6 mmol/L (3.5-5.1); Sodium Level 140 mmol/L (136-145); Triglycerides 58 mg/dL; Very Low Density Lipoprotein 12 mg/dL (5-40)
[2020-08-10 05:07] LABS: Vitamin B1, Thiamine 166.3 nmol/L (66.5-200.0)
[2020-08-10 11:49] LABS: Zinc, Plasma or Serum 95 ug/dL (44-115)
== END ==
PROVIDERS: PCP Family Medicine
DX: E55.9 Vitamin D deficiency, unspecified (principal); K90.9 Intestinal malabsorption, unspecified; E61.7 Deficiency of multiple nutrient elements; K21.00 Gastro-esophageal reflux disease with esophagitis, without bleeding
CPT/HCPCS: 36415; 80053; 80061; 82306; 82607; 82728; 82746; 83540; 83735; 84425; 84630; 85027

== ENCOUNTER → 2023-07-22 | Outpatient (CLI) | payer BC, SELFPAY ==
[2023-07-29 11:08] LABS: HPV APTIMA, High Risk Negative (Negative)
== END | disposition home or self-care (01) ==
LOC: LABSPEC 16:01
PROVIDERS: Referring Provider Nurse Practitioner Women's Health; Visit Provider Nurse Practitioner Women's Health
DX: Z12.4 Encounter for screening for malignant neoplasm of cervix (principal)
CPT/HCPCS: 87624; 88175; G0145

== ENCOUNTER → 2023-07-29 | Outpatient (CLI) | payer BC, SELFPAY ==
--- NOTE | 2023-07-29 12:50 | US_ITS ---
EXAM: US PELVIS TRANSABDOMINAL AND TRANSVAGINAL, COMPLETE CLINICAL INDICATION: abnormal uterine bleeding TECHNIQUE: Transabdominal and endovaginal pelvic ultrasound was performed with grayscale and color Doppler imaging. Endovaginal imaging was used for better evaluation of the endometrium and adnexa. COMPARISON: No relevant prior studies available. FINDINGS: UTERUS/CERVIX: Uterus measures 8.9 x 6.2 x 4.7 cm. Endometrial thickness of 9 mm. RIGHT OVARY: Normal. Blood flow is present in the right ovary. The right ovary measures 3.4 x 2.8 x 2.3 cm. LEFT OVARY: Normal. Blood flow is present in the left ovary. The left ovary measures 3.7 x 2.8 x 2.4 cm. FREE FLUID: None. US/Pelvic (Non ) IMPRESSION: Normal pelvic ultrasound. Electronically Signed: Rodrigo Pedraza MD at 8:41 EST ,
== END | disposition home or self-care (01) ==
PROVIDERS: Referring Provider Nurse Practitioner Women's Health; Visit Provider Nurse Practitioner Women's Health
DX: N93.9 Abnormal uterine and vaginal bleeding, unspecified (principal)
CPT/HCPCS: 76830; 76856

== ENCOUNTER → 2023-08-02 | Outpatient (CLI) | payer BC, SELFPAY ==
--- OUTSIDE RECORDS SUMMARY | 2023-08-02 09:57 | XMS RPT_ITS | CCD ---
Author Name Unknown Address [address] [place] [address] Organization [facility] Care Team Providers Care Foreign Student Adviser Teacher Name Role Phone Luis Blackwell MD Unavailable [phone] IVETT DELEON CNP Attending Unavailable IVETT DELEON CNP Primary Care Unavailable IVETT DELEON CNP Admitting Unavailable JOI SAHU MD Consulting Unavailable PROVIDER, UNKNOWN Consulting Unavailable Unavailable Primary Care Provider Unavailabl e Medications Completed/Discontinued Medications Medication Drug Class(es) Dates Sig (Normalized) Sig (Original) ANTIPYRINE/BENZOCAI NE/GLYCERIN (EAR DROPS OTIC) (5 sources) End: 11-28-2021 ANTIPYRINE/BENZOCAIN E/GLYCERIN (EAR DROPS OTIC) Use in the ears. 0 11/28/2021 Discontinued Problems Active Problems Problem Classification Problem Date Documented Da te Episodic/Chronic Abdominal pain (2 sources) Epigastric pain; Translations: [Epigastric pain] Episodic Administrative/social admission (1 source) Encounter for other administrative examinations; Translations: [Encounter for other administrative examinations] Onset: 0 Episodic Complication of device; implant or graft (1 source) Ulcer of anastomosis; Translations: [Other specified complication of other internal prosthetic devices, implants and grafts, initial encounter] Episodic Esophageal disorders (5 sources) Gastroesophageal reflux disease without esophagitis; Translations: [Gastro-esophageal reflux disease without esophagitis] Onset: 2 Chronic Headache; including migraine (2 sources) Tension-type headache; Translations: [Tension-type headache, unspecified, not intractable] Onset: 2 Chronic Immunizations and screening for infectious disease (1 source) Patient encounter status; Translations: [Encounter for screening for other viral diseases] Episodic Other gastrointestinal disorders (1 source) History of bypass of stomach; Translations: [Bariatric surgery status] Episodic Other nutritional; endocrine; and metabolic disorders (1 source) Localized adiposity; Translations: [Localized adiposity] Onset: 0 10-05-2019 Chronic Other nutritional; endocrine; and metabolic disorders (6 sources) Obesity; Translations: [Obesity, unspecified] Onset: 5 06-23-2014 Chronic Other nutritional; endocrine; and metabolic disorders (2 sources) Obese class I; Translations: [Obesity, unspecified] Onset: 2 Chronic Unclassified (1 source) Patient care statuses; Translations: [Bariatric surgery status] Onset: 0 10-05-2019 Past or Other Problems Problem Classification Problem Date Documented Da te Episodic/Chronic Unclassified (1 source) Problem Results Test Name Value Interpretation Reference Range Facil ity Vital Signs Date Time Vital Sign Value Performing Clinician Facility 12-28-2021 08:06-0400 Body height 169.5 cm Kalen Ramírez MD Work Phone: [facility] 12-28-2021 08:06-0400 Body temperature 97.2 [degF] Kalen Ramírez MD Work Phone: [facility] 12-28-2021 08:06-0400 Body weight 89.36 kg Kalen Ramírez MD Work Phone: [facility] 12-28-2021 08:06-0400 Diastolic blood pressure 68 mm[Hg] Kalen Ramírez MD Work Phone: [facility] 12-28-2021 08:06-0400 Heart rate 76 /min Kalen Ramírez MD Work Phone: [facility] 12-28-2021 08:06-0400 Respiratory rate 20 /min Kalen Ramírez MD Work Phone: [facility] 12-28-2021 08:06-0400 Systolic blood pressure 108 mm[Hg] Kalen Ramírez MD Work Phone: [facility] 11-28-2021 15:29-0400 Body height 170.2 cm Fallon Hill PA-C Work Phone: [facility] 11-28-2021 15:29-0400 Body temperature 99.1 [degF] Fallon Sigurd PA-C Work Phone: [facility] 11-28-2021 15:29-0400 Body weight 92.08 kg Fallon Sergio PA-C Work Phone: [facility] 11-28-2021 15:29-0400 Diastolic blood pressure 78 mm[Hg] Fallon Sigurd PA-C Work Phone: [facility] 11-28-2021 15:29-0400 Heart rate 90 /min Fallon Sergio PA-C Work Phone: [facility] 11-28-2021 15:29-0400 SaO2% (BldA) [Mass fraction] 100 % Fallon Sigurd PA-C Work Phone: [facility] 11-28-2021 15:29-0400 Systolic blood pressure 112 mm[Hg] Fallon Sigurd PA-C Work Phone: [facility] 11-16-2021 10:41-0400 Diastolic blood pressure 65 mm[Hg] Alton Morrison MD Work Phone: [facility] 11-16-2021 10:41-0400 Heart rate 64 /min Alton Morrison MD Work Phone: [facility] 11-16-2021 10:41-0400 Respiratory rate 16 /min Alton Morrison MD Work Phone: [facility] 11-16-2021 10:41-0400 SaO2% (BldA) [Mass fraction] 100 % Alton Morrison MD Work Phone: [facility] 11-16-2021 10:41-0400 Systolic blood pressure 109 mm[Hg] Alton Morrison MD Work Phone: [facility] 11-16-2021 09:19-0400 Body temperature 98.1 [degF] Alton Morrison MD Work Phone: [facility] 10-27-2021 09:48-0400 Body height 170.2 cm Alton Morrison MD Work Phone: [facility] 10-27-2021 09:48-0400 Body temperature 97.9 [degF] Alton Morrison MD Work Phone: [facility] 10-27-2021 09:48-0400 Body weight 92.17 kg Alton Morrison MD Work Phone: [facility] 10-27-2021 09:48-0400 Diastolic blood pressure 76 mm[Hg] Alton Morrison MD Work Phone: [facility] 10-27-2021 09:48-0400 Heart rate 101 /min Alton Morrison MD Work Phone: [facility] 10-27-2021 09:48-0400 SaO2% (BldA) [Mass fraction] 100 % Alton Morrison MD Work Phone: [facility] 10-27-2021 09:48-0400 Systolic blood pressure 118 mm[Hg] Alton Morrison MD Work Phone: [facility] 10-26-2021 11:12-0400 Body temperature 98.29 [degF] Kayley England APRN.RESTAURANT SHIFT LEADER Work Phone: [facility] 10-26-2021 11:12-0400 Body weight 92.44 kg Kayley England APRN.RESTAURANT SHIFT LEADER Work Phone: [facility] 10-26-2021 11:12-0400 Diastolic blood pressure 82 mm[Hg] Kayley England APRN.RESTAURANT SHIFT LEADER Work Phone: [facility] 10-26-2021 11:12-0400 Heart rate 76 /min Kayley England APRN.RESTAURANT SHIFT LEADER Work Phone: [facility] 10-26-2021 11:12-0400 Respiratory rate 18 /min Kayley England APRN.RESTAURANT SHIFT LEADER Work Phone: [facility] 10-26-2021 11:12-0400 SaO2% (BldA) [Mass fraction] 99 % Kayley England APRN.RESTAURANT SHIFT LEADER Work Phone: [facility] 10-26-2021 11:12-0400 Systolic blood pressure 130 mm[Hg] Kayley England APRN.CNP Work Phone: [facility] NEGATED: Highlighted [id number] 08:18-0400 BMI (Body Mass Index) 28.77 kg/m2 Catalina Dupree RN [facility] Work Phone: NEGATED: Highlighted [id number] 08:18-0400 Body weight 83.01 kg Catalina Dupree RN [facility] Work Phone: NEGATED: Highlighted [id number] 08:18-0400 Body weight 83 kg Catalina Dupree RN [facility] Work Phone: NEGATED: Highlighted [id number] 08:18-0400 Height 170.18 cm Catalina Dupree RN [facility] Work Phone: NEGATED: Highlighted [id number] 08:18-0400 Height 170 cm Catalina Dupree RN [facility] Work Phone: Encounters Encounter Date Encounter Type Care Provider Facility Start: 12-28-2021 End: 12-28-2021 Patient encounter procedure Kalen Ramírez MD Work Phone: [facility] Procedures Date Procedure Procedure Detail Performing Clinician Start: 12-28-2021 Adult depression scr eening assessment Kalen Ramírez MD Work Phone: Start: 11-16-2021 Esophagogastroduoden oscopy transoral diagnostic Alton Morrison MD Work Phone: Start: 10-05-2019 End: 10-05-2019 Blood pressure screening not performed - reason not given Luis Blackwell MD Work Phone: Start: 10-05-2019 End: 10-05-2019 BMI outside of normal parameters - no follow-up plan/reason not given Luis Blackwell MD Work Phone: Start: 10-05-2019 End: 10-05-2019 Documentation of current medications Luis Blackwell MD Work Phone: Start: 10-05-2019 End: 10-05-2019 Pain assessment documented as negative - follow-up not required Luis Blackwell MD Work Phone: Start: 10-05-2019 End: 10-05-2019 Tobacco non-user Luis Blackwell MD Work Phone: Start: 09-29-2019 End: 09-29-2019 Documentation of current medications Catalina Dupree RN Start: 02-01-2016 Adult depression scr eening assessment Karel Solomon MD Work Phone: NEGATED: Highlighted rowStart: 10-05-2019 End: 10-05-2019 Documentation of current medications Catalina Dupree RN Plan of Treatment Date Care Activity Detail Author Start: 11-28-2025 Urine microalbumin profile [facility] Start: 12-28-2022 Adult depression screening assessment DEPRESSION SCREENING [facility] Start: 02-24-2022 COVID-19 VACCINE (3 - Booster for Moderna series) COVID-19 VACCINE (3 - Booster for Moderna series) [facility] Start: 02-01-2022 Influenza vaccination C [facility] Start: 12-30-2021 End: 03-01-2022 25-hydroxyvitamin D3 [Mass/volume] in Serum or Plasma VITAMIN D 25 HYDROXY Lab Routine Routine medical exam S/P gastric bypass Expected: 12/30/2021, Expires: 03/01/2022 [facility] Work Phone: Immunizations Immunization Date Immunization Notes Care Provider Enrrique fall 11-10-2021 hepatitis B vaccine, adult dosage Kalen Ramírez MD Work Phone: [facility] Work Phone: 11-10-2021 varicella virus vaccine Vict or Darrell BUTCHER Work Phone: [facility] Work Phone: 09-26-2021 hepatitis B vaccine, adult dosage Kalen Ramírez MD Work Phone: [facility] Work Phone: 09-26-2021 varicella virus vaccine Vict nilsa Ramírez MD Work Phone: [facility] Work Phone: 04-10-2018 influenza, injectabl e, quadrivalent, preservative free Kalen Ramírez MD Work Phone: [facility] Work Phone: 11-29-2015 tetanus toxoid, redu corona diphtheria toxoid, and acellular pertussis vaccine, adsorbed Karel Solomon MD Work Phone: [facility] 11-04-2014 tetanus toxoid, redu corona diphtheria toxoid, and acellular pertussis vaccine, adsorbed Karel Solomon MD Work Phone: [facility] Work Phone: 10-25-2009 human papilloma viru s vaccine, quadrivalent Kalen Ramírez MD Work Phone: [facility] Work Phone: 06-28-2009 human papilloma viru s vaccine, quadrivalent Kalen Ramírez MD Work Phone: [facility] Work Phone: 04-26-2009 hepatitis B vaccine, pediatric or pediatric/adolescent dosage Kalen Ramírez MD Work Phone: [facility] Work Phone: 04-26-2009 human papilloma viru s vaccine, quadrivalent Kalen Ramírez MD Work Phone: [facility] Work Phone: 04-26-2009 tetanus toxoid, redu corona diphtheria toxoid, and acellular pertussis vaccine, adsorbed Kalen Ramírez MD Work Phone: [facility] Work Phone: Payers Date Payer Category Payer Private Health Insurance [id number] 2018 Unknown JERRI [employer]HT[employer] FEP PPO [id number] 2018-Present [phone] [address] [place] [address] PPO [id number] 2015 Unknown JERRI JERRI BS FEP PPO [id number] 2015-Present [phone] [address] [place] [address] PPO [id number] 1990 Unknown [id number] Social History Date Type Detail Facility Start: 06-17-2012 Tobacco smoking stat us [facility] Never smoked tobacco [facility] Work Phone: Start: 06-17-2012 Tobacco use and exposure Smokeless tobacco non-user [facility] Work Phone: Start: 10-26-2021 End: 12-28-2021 Alcohol intake Current non-drinker of alcohol (finding) [facility] Start: 1990 Sex Assigned At Not on file C [facility] Start: 10-16-2021 End: 12-28-2021 Exposure to SARS-CoV-2 (event) Not sure [facility] Work Phone: Start: 12-21-2021 History SDOH Alcohol Frequency 1 [facility] Start: 12-21-2021 History SDOH Alcohol Std Drinks 98 [facility] Start: 12-21-2021 History SDOH Social Connections Phone 2 [facility] Start: 12-21-2021 History SDOH Social Connections Living 3 [facility] Start: 12-21-2021 History SDOH Stress 4 [facility] NEGATED: Highlighted rowStart: 10-05-2019 End: 10-05-2019 Alcohol use Alcohol use [facility] Work Phone: NEGATED: Highlighted rowStart: 10-05-2019 End: 10-05-2019 Details of drug misuse behavior Details of drug misuse behavior [facility] Work Phone: NEGATED: Highlighted rowStart: 10-05-2019 End: 10-05-2019 Assertion Never smoker [facility] Work Phone: Clinical Notes 07-06-2015 to 12-28-2021 Kalen Ramírez MD - 12/28/2021 8:49 AM EDTPatient Marce Hill PA-C - 11/28/2021 3:28 PM EDJimenez Trammell RN - 11/16/2021 10:11 AM EDTAlton Morrison MD - 11/04/2021 8:22 AM EDT Note Date & Type Note Facility 12-28-2021 Note HNO ID: [id number] Author: Kalen Ramírez MD Service: ? Author Type: Physician Type: Progress Notes Filed: 12/28/2021 8:58 AM Note Text: This note was created using [employer]. Subjective Patient presents with: [facility] Care Chasidy Linares is a 31 year old female. She had abdominal pain from PUD and had seen Dr. Morrison. She was doing much better. She had no recent PCP. She is s/p gastric bypass surgery in 2018 with no recent follow up. She felt well overall. 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 Review of Systems Constitutional: Negative. HENT: Negative. Eyes: Negative. Respiratory: Negative. Cardiovascular: Negative. Gastrointestinal: Negative. Genitourinary: Negative. Musculoskeletal: Negative. Skin: Negative. Neurological: Positive for headaches. Posterior neck pain with tension headaches off and on. Psychiatric/Behavioral: Negative. PAST MEDICAL HISTORY Diagnosis Date - Congenital hearing loss of both ears - Gastroesophageal reflux disease without esophagitis 12/28/2021 - History of depression teens - Obesity - S/P gastric bypass 04/09/2018 PAST SURGICAL HISTORY Procedure Laterality Date - EGD W/O BRSH SPEC VARICIES INJ 11/16/2021 - GASTRECTOMY,PART DISTAL;W/GASTRODUODENOSTO 04/09/2018 Lap. RY Gastric bypass - HERNIA REPAIR HX - PAST SURGICAL HISTORY OF 2019 paniculectomy - SHX COSMETIC SURGERY - TONSILLECTOMY HX - UNSPECIFIED ORAL SURGERY PROCEDURE, BY REPORT wisdom (4) teeth removal FAMILY HISTORY Problem Relation Age of Onset - Heart Mother - Obesity Father - Liver Disease Father Fatty liver - Hearing Loss Father congenital - No Known Problems Sister - No Known Problems Sister - No Known Problems Sister - Hypertension Maternal Grandfather - Diabetes Maternal Grandfather - other (heart disease) Other multiple maternal aunts and uncles had heart disease in her 40's Social History Tobacco Use - Smoking status: Never Smoker - Smokeless tobacco: Never Used Vaping Use - Vaping Use: Never used Substance Use Topics - Alcohol use: No - Drug use: No Immunization History Administered Date(s) Administered COVID-19 vaccine, full dose (MODERNA) 08/23/2021 09/24/2021 HUMAN PAPILLOMAVIRUS QUADRIVALENT - Male and Females 04/26/2009 06/28/2009 10/25/2009 Hepatitis B Adult 09/26/2021 11/10/2021 Hepatitis B Peds/Adol 04/26/2009 Influenza Seasonal Inj Quad Age 6 Mo-64 Yrs Pres Free 04/10/2018 Tdap (Age 7+) 04/26/2009 11/04/2014 11/29/2015 Varicella Vaccine 09/26/2021 11/10/2021 ALLERGIES No Known Allergies Current Outpatient Medications Medication Sig - pantoprazole DR (PROTONIX) 20 mg tablet Take 1 tablet by mouth daily before breakfast. Take on empty stomach, 1/2 hr before meal. No current facility-administered medications for this visit. Objective BP 108/68 (BP Site: Right Arm, BP Position: Sitting, BP Cuff Size: Large Adult) Pulse 76 Temp 36.2 ?C (97.2 ?F) (Temporal Artery) Resp 20 Ht 169.5 cm (5' 6.75 ) Wt 89.4 kg (197 lb) LMP 11/09/2016 (Approximate) BMI 31.09 kg/m? Physical Exam Constitutional: General: She is not in acute distress. Appearance: She is not ill-appearing. HENT: Head: Normocephalic. Ears: Comments: Bilateral hearing aids. Eyes: Extraocular Movements: Extraocular movements intact. Conjunctiva/sclera: Conjunctivae normal. Pupils: Pupils are equal, round, and reactive to light. Cardiovascular: Rate and Rhythm: Normal rate and regular rhythm. Heart sounds: No murmur heard. No gallop. Pulmonary: Effort: Pulmonary effort is normal. Breath sounds: Normal breath sounds. Abdominal: Palpations: Abdomen is soft. Tenderness: There is no abdominal tenderness. Musculoskeletal: General: No tenderness. Normal range of motion. Cervical back: Neck supple. No tenderness. Right lower leg: No edema. Left lower leg: No edema. Lymphadenopathy: Cervical: No cervical adenopathy. Skin: Findings: No rash. Neurological: General: No focal deficit present. Mental Status: She is alert. Gait: Gait normal. Psychiatric: Mood and Affect: Mood normal. Assessment and Plan 1. Routine medical exam - ICD9: V70.0, ICD10: Z00.00 (primary diagnosis) - Counseled on healthy diet and regular exercise - Discussed need and benefit for weight loss. BMI 31.09 kg/(m2) - Depression screening tool completed and reviewed with patient. Based on score and interview, patient is not at risk for depression and recommended no further intervention at this time. - Follow up for annual exam in one year - CBC - COMP METABOLIC PANEL - LIPID PANEL BASIC - VITAMIN B12 BLOOD - FOLATE SERUM - VITAMIN D 25 HYDROXY - FERRITIN BLD 2. S/P gastric bypass - ICD9: V45.86, ICD10: Z98.84 - CBC - COMP METABOLIC PANEL - LIPID PANEL BASIC - VITAMIN B12 BLOOD - FOLATE SERUM - VITAMIN D 25 HYDROXY - FERRIT (more content not included)... [facility] 12-28-2021 History of Presen t illness Narrative This note was created using [employer]. Subjective Patient presents with: [facility] Kameron Chasidy Linares is a 31 year old female. She had abdominal pain from PUD and had seen Dr. Morrison. She was doing much better. She had no recent PCP. She is s/p gastric bypass surgery in 2018 with no recent follow up. She felt well overall. 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 Review of Systems Constitutional: Negative. HENT: Negative. Eyes: Negative. Respiratory: Negative. Cardiovascular: Negative. Gastrointestinal: Negative. Genitourinary: Negative. Musculoskeletal: Negative. Skin: Negative. Neurological: Positive for headaches. Posterior neck pain with tension headaches off and on. Psychiatric/Behavioral: Negative. PAST MEDICAL HISTORY Diagnosis Date Congenital hearing loss of both ears Gastroesophageal reflux disease without esophagitis 12/28/2021 History of depression teens Obesity S/P gastric bypass 04/09/2018 PAST SURGICAL HISTORY Procedure Laterality Date EGD W/O BRSH SPEC VARICIES INJ 11/16/2021 GASTRECTOMY,PART DISTAL;W/GASTRODUODENOSTO 04/09/2018 Lap. RY Gastric bypass HERNIA REPAIR HX PAST SURGICAL HISTORY OF 2019 paniculectomy SHX COSMETIC SURGERY TONSILLECTOMY HX UNSPECIFIED ORAL SURGERY PROCEDURE, BY REPORT wisdom (4) teeth removal FAMILY HISTORY Problem Relation Age of Onset Heart Mother Obesity Father Liver Disease Father Fatty liver Hearing Loss Father congenital No Known Problems Sister No Known Problems Sister No Known Problems Sister Hypertension Maternal Grandfather Diabetes Maternal Grandfather other (heart disease) Other multiple maternal aunts and uncles had heart disease in her 40's Social History Tobacco Use Smoking status: Never Smoker Smokeless tobacco: Never Used Vaping Use Vaping Use: Never used Substance Use Topics Alcohol use: No Drug use: No Immunization History Administered Date(s) Administered COVID-19 vaccine, full dose (MODERNA) 08/23/2021 09/24/2021 HUMAN PAPILLOMAVIRUS QUADRIVALENT - Male and Females 04/26/2009 06/28/2009 10/25/2009 Hepatitis B Adult 09/26/2021 11/10/2021 Hepatitis B Peds/Adol 04/26/2009 Influenza Seasonal Inj Quad Age 6 Mo-64 Yrs Pres Free 04/10/2018 Tdap (Age 7+) 04/26/2009 11/04/2014 11/29/2015 Varicella Vaccine 09/26/2021 11/10/2021 ALLERGIES No Known Allergies Current Outpatient Medications Medication Sig pantoprazole DR (PROTONIX) 20 mg tablet Take 1 tablet by mouth daily before breakfast. Take on empty stomach, 1/2 hr before meal. No current facility-administered medications for this visit. Objective BP 108/68 (BP Site: Right Arm, BP Position: Sitting, BP Cuff Size: Large Adult) Pulse 76 Temp 36.2 C (97.2 F) (Temporal Artery) Resp 20 Ht 169.5 cm (5' 6.75 ) Wt 89.4 kg (197 lb) LMP 11/09/2016 (Approximate) BMI 31.09 kg/m Physical Exam Constitutional: General: She is not in acute distress. Appearance: She is not ill-appearing. HENT: Head: Normocephalic. Ears: Comments: Bilateral hearing aids. Eyes: Extraocular Movements: Extraocular movements intact. Conjunctiva/sclera: Conjunctivae normal. Pupils: Pupils are equal, round, and reactive to light. Cardiovascular: Rate and Rhythm: Normal rate and regular rhythm. Heart sounds: No murmur heard. No gallop. Pulmonary: Effort: Pulmonary effort is normal. Breath sounds: Normal breath sounds. Abdominal: Palpations: Abdomen is soft. Tenderness: There is no abdominal tenderness. Musculoskeletal: General: No tenderness. Normal range of motion. Cervical back: Neck supple. No tenderness. Right lower leg: No edema. Left lower leg: No edema. Lymphadenopathy: Cervical: No cervical adenopathy. Skin: Findings: No rash. Neurological: General: No focal deficit present. Mental Status: She is alert. Gait: Gait normal. Psychiatric: Mood and Affect: Mood normal. Assessment and Plan 1. Routine medical exam - ICD9: V70.0, ICD10: Z00.00 (primary diagnosis) - Counseled on healthy diet and regular exercise - Discussed need and benefit for weight loss. BMI 31.09 kg/(m^2) - Depression screening tool completed and reviewed with patient. Based on score and interview, patient is not at risk for depression and recommended no further intervention at this time. - Follow up for annual exam in one year - CBC - COMP METABOLIC PANEL - LIPID PANEL BASIC - VITAMIN B12 BLOOD - FOLATE SERUM - VITAMIN D 25 HYDROXY - FERRITIN BLD 2. S/P gastric bypass - ICD9: V45.86, ICD10: Z98.84 - CBC - COMP METABOLIC PANEL - LIPID PANEL BASIC - VITAMIN B12 BLOOD - FOLATE SERUM - VITAMIN D 25 HYDROXY - FERRITIN BLD 3. Encounter for hepatitis C screening test for low risk patient - ICD9: V73.89, ICD10: Z11.59 - HEP C AB IA W/CONF SCRN 4. Obesity, Class I, BMI 30-34.9 - ICD9: 278.00, ICD10: E66.9 Weight decreasing - Behavioral intervention 5. Tension headache NOS - ICD9: 307.81, ICD10: G44.209 Stable, self managed. Kalen Ramírez MD documented in this encounter [facility] 11-28-2021 Note HNO ID: [id number] Author: Fallon Hill PA-C Service: ? Author Type: Physician Nurse Supervisor Type: Progress Notes Filed: 12/05/2021 12:25 AM Note Text: FOLLOW UP VISIT - ENDOSCOPY NAME: Chasidy Linares [facility] NO.: [id number] DATE OF SERVICE: 11/28/2021 : 1990 REFERRING PHYSICIAN: No primary care provider on file. Chasidy is a patient I am following with Dr. Morrison for GERD and epigastric pain. She is s/p bariatric surgery in 2018. Dr. Morrison performed upper endoscopy on 11/16/21. The patient was found to have a non-bleeding cratered gastric ulcer at the anastomosis. Pathology demonstrated: FINAL DIAGNOSIS A. Stomach, antrum , biopsy: - Gastric oxyntic-type mucosa with no significant pathologic change. - No intestinal metaplasia or morphologic evidence of Helicobacter pylori organisms. The patient notes no complaints since the procedure. VITALS: Last menstrual period 11/09/2016. General: patient is alert, cooperative, pleasant and in no acute distress On examination, the abdomen is benign. Assessment IMPRESSION: s/p EGD with finding of non-bleeding cratered ulcer in anastomosis PLAN: The operative findings and pathology report were reviewed with the patient, and the patient has had the opportunity to ask questions and have questions answered. Continue PPI, dietary and lifestyle modifications as discussed. If the patient notes any problems or changes in bowel function, the patient should contact me immediately. Otherwise I recommend follow up endoscopy in 6 months. HM updated and recall letter generated. Patient verbalized understanding of all above and agreed with the plan Diagnoses: (T85.898A, K28.9) Ulcer at site of surgical anastomosis following bypass of stomach (primary encounter diagnosis) I spent a total of 23 minutes on the date of the service which included preparing to see the patient, [id number] patient care, completing clinical documentation, obtaining and/or reviewing separately obtained history, communicating with other HCPs (not separately reported), independently interpreting results (not separately reported) and communicating results to the patient/family/caregiver. Fallon Hill PA-C [facility] 11-28-2021 Instructions Fallon Hill PA-C - 11/28/2021 3:52 PM EDT -Follow up for repeat EGD in 6 months The following instructions are important for you related to your office visit today with the [facility]. INSTRUCTIONS FOR PEPTIC ULCER DISEASE/GASTRITIS I discussed with you the findings of your upper endoscopy. Your upper endoscopy demonstrated signs of peptic ulcer disease or irritation. This can be seen as a range of issues from actual ulcers in the stomach or duodenum (first part of the small bowel) or irritation ranging from redness to more significant irritation with erosions of the stomach or duodenum. These conditions are usually caused from a combination of too much acid production or too little protective mucus production in the stomach. Factors that increase acid production include smoking and stress. If you smoke, stopping smoking will often cure these issues without needing other medications. Factors that decrease the stomach's production of protective mucus include alcohol consumption, smoking, aspirin and other anti-inflammatory use. Over the counter medications including antiacids and acid reducing medications including H2 blockers (Zantac and the like) and proton pump inhibitors (prilosec, prevacid and the like) neutralize or prevent acid production. Prescription strength proton pump inhibitors (PPIs) may be necessary if your symptoms persist. Carafate may be added to PPI treatment in refractory cases. Avoiding smoking, alcohol and antiinflammatory medications are important in the successful treatment of peptic diseases. New or worsening symptoms such are epigastric pain, burning, difficulty swallowing or food sticking should be relayed to your physician. Feeling full early after eating, or black, tarry, foul smelling stools are also worrisome. If you have any difficulties or concerns, you should contact our office immediately. If you note any additional difficulties, questions, or concerns, you should contact our office immediately @ [phone] and ask to be transferred to the General Surgery department. documented in this encounter [facility] 11-28-2021 History of Presen t illness Narrative FOLLOW UP VISIT - ENDOSCOPY NAME: Chasidy Linares [facility] NO.: [id number] DATE OF SERVICE: 11/28/2021 : 1990 REFERRING PHYSICIAN: No primary care provider on file. Chasidy is a patient I am following with Dr. Morrison for GERD and epigastric pain. She is s/p bariatric surgery in 2018. Dr. Morrison performed upper endoscopy on 11/16/21. The patient was found to have a non-bleeding cratered gastric ulcer at the anastomosis. Pathology demonstrated: FINAL DIAGNOSIS A. Stomach, antrum , biopsy: - Gastric oxyntic-type mucosa with no significant pathologic change. - No intestinal metaplasia or morphologic evidence of Helicobacter pylori organisms. The patient notes no complaints since the procedure. VITALS: Last menstrual period 11/09/2016. General: patient is alert, cooperative, pleasant and in no acute distress On examination, the abdomen is benign. Assessment IMPRESSION: s/p EGD with finding of non-bleeding cratered ulcer in anastomosis PLAN: The operative findings and pathology report were reviewed with the patient, and the patient has had the opportunity to ask questions and have questions answered. Continue PPI, dietary and lifestyle modifications as discussed. If the patient notes any problems or changes in bowel function, the patient should contact me immediately. Otherwise I recommend follow up endoscopy in 6 months. HM updated and recall letter generated. Patient verbalized understanding of all above and agreed with the plan Diagnoses: (T85.898A, K28.9) Ulcer at site of surgical anastomosis following bypass of stomach (primary encounter diagnosis) I spent a total of 23 minutes on the date of the service which included preparing to see the patient, [id number] patient care, completing clinical documentation, obtaining and/or reviewing separately obtained history, communicating with other HCPs (not separately reported), independently interpreting results (not separately reported) and communicating results to the patient/family/caregiver. Fallon Hill PA-C documented in this encounter [facility] 11-16-2021 Nurse Note Arrived in phase II via cart. Left lateral position. Sedated, but responds to verbal stimuli. Color normal; skin warm and dry. Respirations wnl and unlabored. Abdomen soft and with + bowel sounds in quads X 4. Patient resting comfortably. Family at bedside. Dr. Morrison at bedside to review procedure and recommendations. Juany Trammell RN documented in this encounter [facility] 11-16-2021 History and physical note Images from the original note were not included. HISTORY AND PHYSICAL Chasidy Milagros 1990 REFERRING PHYSICIAN: Kayley England APRN.* CHIEF COMPLAINT: Consult (GERD/bowel changes) HPI: The patient is a 31 year old female referred for endoscopy. Chasidy notes no history of colon complaints. Patient came in with complaints of a burnging feeling in her stomach that goes up her throat and abdominal pain for 3 weeks. Patient has bariatric surgery in 2018. Did a few follow ups with doctor then did not return. Has no PCP currently. Was diagnosed with acid reflux but not treated. Stating her abdominal pain is a 4/10 today located in the top left. Is having constipation issues but that was 2 weeks ago. Said the stool had some dark red color on it but none recently. Did mention she is not as diligent with her vitamin regiment as she should be. . Denies chest pain, shortness of breath, jaw pain, arm pain, back pain, or any other symptoms at this time Chasidy has undergone prior endoscopy. The patient is being seen by me today at the request of Dr. England for my opinion and advice regarding Epigastric pain (primary encounter diagnosis) Gastroesophageal reflux disease, unspecified whether esophagitis present. PAST MEDICAL HISTORY PAST MEDICAL HISTORY Diagnosis Date NEGATIVE MEDICAL HISTORY Obesity PAST SURGICAL HISTORY PAST SURGICAL HISTORY Procedure Laterality Date BARIATRIC SURGERY HX 2018 PAST SURGICAL HISTORY OF 2019 paniculectomy UNSPECIFIED ORAL SURGERY PROCEDURE, BY REPORT manueladom (4) teeth removal CURRENT MEDICATIONS Current Outpatient Medications Medication Sig pantoprazole DR (PROTONIX) 20 mg tablet Take 1 tablet by mouth daily before breakfast. Take on empty stomach, 1/2 hr before meal. VIT/IRON FUMARATE/FA ( ORAL) Take by mouth. citalopram (CELEXA) 40 mg tablet Take 1 tablet by mouth once daily. (Patient not taking: Reported on 10/27/2017 ) ANTIPYRINE/BENZOCAINE/GLYCERIN (EAR DROPS OTIC) Use in the ears. (Patient not taking: Reported on 10/27/2021 ) No current facility-administered medications for this visit. ALLERGIES: Patient has no known allergies. PERSONAL HISTORY: SOCIAL HISTORY Social History Tobacco Use Smoking status: Never Smoker Smokeless tobacco: Never Used Vaping Use Vaping Use: Never used Substance Use Topics Alcohol use: No Drug use: No FAMILY HISTORY: FAMILY HISTORY FAMILY HISTORY Problem Relation Age of Onset Heart Mother None Father other (heart disease [Other]) Unknown multiple maternal aunts and uncles had heart disease in her 40's Hypertension Maternal Grandfather Diabetes Maternal Grandfather REVIEW OF SYMPTOMS: The review of systems data was entered by the nurse and reviewed by ms Nursing Notes: Megha Mac RN 10/27/2021 9:52 AM Signed REVIEW OF SYSTEMS: General: The patient NOTES fatigue, denies weight loss, denies weight gain, denies feeling hot, and denies feelings of cold. Eyes: The patient denies glaucoma, denies eye injury/surgery, does not wear glasses or contacts. Ear/Nose/Throat: The patient denies allergies, denies hayfever, denies ear infections, and denies bloody noses. Cardiovascular: The patient NOTES chest pain, denies heart disease, denies high blood pressure,denies cardiac stent, denies prior heart attack, denies irregular heart beat, denies high cholesterol, denies poor circulation, denies heart failure, other cardiac issues, denies claudication, denies cold feet, denies peripheral arterial stent. Respiratory: The patient denies tuberculosis, denies pneumonia, denies frequent cough, denies pulmonary embolism, denies shortness of breath, and denies coughing up blood. Gastrointestinal: The patient denies difficulty swallowing, denies acid reflux, denies ulcers, denies vomiting, denies jaundice/hepatitis, denies gallbladder problems, denies black or tarry stools, denies hemorrhoids, denies bleeding from rectum, denies diverticulitis, NOTES constipation, denies diarrhea, denies loss of stool control, and denies hernias. Kidney/Bladder: The patient denies kidney stones, denies urine infections, and denies bloody urine. Skin: The patient denies a history of skin cancer, denies bleeding/changing moles, and denies a history of skin rash. Neurologic: The patient denies a history of epilepsy/convulsions, denies headaches, denies head/spinal injuries, and denies stroke/TIA. Psychiatric: The patient denies psychiatric medications, denies depression, and denies voices, denies substance abuse. Endocrine: The patient denies thyroid disorders, denies diabetes, and denies hormonal problems. Hematologic: The patient denies a history of bruising, denies bleeding, and denies anemia, denies blood clots. Infections: The patient denies a history of measles and mumps, denies rheumatic fever, and denies sexually transmitted diseases. Musculoskeletal: The patient denies back pain/injury, denies back problems, denies sciatica, denies knee/foot trouble, denies arthritis, or denies gout. When was patient's last Mammogram screening? Last Colonoscopy: none Megha Mac RN PHYSICAL EXAMINATION: General: The patient is 31 year old female, well nourished, well hydrated in no acute distress. The patient is oriented to time, place, and person. VITALS: Blood pressure 118/76, pulse 101, temperature 36.6 C (97.9 F), height 170.2 cm (5' 7 ), weight 92.2 kg (203 lb 3.2 oz), last menstrual period 11/06/2016, SpO2 100 %. Body mass index is 31.83 kg/m . HEENT: Normal cephalic, ataumatic, pupils are equally round, sclera are anicteric, mucous membranes are moist, oropharynx is clear. Neck has no masses, asymmetry or lymphadenopathy. Thyroid is unremarkable. Respiratory: Clear to auscultation and percussion. Normal respiratory excursion and pattern. Cardiac: Examination is regular rate and rhythm. Abdominal exam: Soft, nontender, with no palpable masses. No hepatosplenomegaly. No palpable hernias. Rectal exam: exam deferred Extremities: no clubbing, cyanosis or edema. No adenopathy. Other: LABORATORY VALUES: As Noted RADIOLOGIC STUDIES: As Noted Assessment IMPRESSION: Epigastric pain (primary encounter diagnosis) Gastroesophageal reflux disease, unspecified whether esophagitis present PLAN: I plan to perform upper endoscopy. We discussed the risks and benefits of the planned endoscopy. I have informed the patient that complications can occur including failure to complete the endoscopy and perforation. The patient had the opportunity to ask questions concerning the planned endoscopy. My staff has also explained the procedure to the patient in understandable terms and has given the patient printed material concerning the procedure. The patient freely consents to surgery. Diagnoses: (R10.13) Epigastric pain (primary encounter diagnosis) (K21.9) Gastroesophageal reflux disease, unspecified whether esophagitis present My findings have been communicated to Dr. England via shared medical record. This note will be forwarded to Dr. Epperson primary care provider on file.. Return to Clinic: The patient is instructed to follow-up with me 1 week post operatively. COVID (Procedure Consent) Procedure Criteria Procedure Criteria: Yes Elective The surgeon/proceduralist and patient have discussed in detail the risk of exposure to and/or potential harm posed by the COVID-19 virus with having a surgery/procedure at this time versus the risk of delaying the surgery/procedure. It is not possible to know either the risk of delaying the surgery or procedure or chance of getting an infection with perfect accuracy, but a joint decision was made between the patient and the surgeon/proceduralist to proceed at this time with the scheduled surgery/procedure as indicated on the consent form. Alton Morrison III, MD UPDATED HISTORY AND PHYSICAL EXAMINATION SERVICE DATE: 11/16/2021 SERVICE TIME: 9:53 AM PHYSICAL EXAM MUST BE COMPLETED ON ADMISSION The History and Physical (completed in the past 30 days) has been reviewed and the patient has been examined. The contents accurately reflect the patient's condition with the following additions or revisions since the H&P was completed. Examination indicates no changes. This H&P can be found in the attached. SIGNATURE: Alton Morrison III, MD PATIENT NAME: Chasidy Linares DATE: November 16, 2021 TIME: 9:53 AM documented in this encounter [facility] 11-04-2021 Note HNO ID: [id number] Author: Alton Morrison MD Service: ? Author Type: Physician Type: Progress Notes Filed: 11/04/2021 8:25 AM Note Text: HISTORY AND PHYSICAL Chasidy Linares 1990 REFERRING PHYSICIAN: Kayley England APRN.* CHIEF COMPLAINT: Consult (GERD/bowel changes) HPI: The patient is a 31 year old female referred for endoscopy. Chasidy notes no history of colon complaints. Patient came in with complaints of a burnging feeling in her stomach that goes up her throat and abdominal pain for 3 weeks. Patient has bariatric surgery in 2018. Did a few follow ups with doctor then did not return. Has no PCP currently. Was diagnosed with acid reflux but not treated. Stating her abdominal pain is a 4/10 today located in the top left. Is having constipation issues but that was 2 weeks ago. Said the stool had some dark red color on it but none recently. Did mention she is not as diligent with her vitamin regiment as she should be. . Denies chest pain, shortness of breath, jaw pain, arm pain, back pain, or any other symptoms at this time Chasidy has undergone prior endoscopy. The patient is being seen by me today at the request of Dr. England for my opinion and advice regarding Epigastric pain (primary encounter diagnosis) Gastroesophageal reflux disease, unspecified whether esophagitis present. PAST MEDICAL HISTORY Diagnosis Date - NEGATIVE MEDICAL HISTORY - Obesity PAST SURGICAL HISTORY Procedure Laterality Date - BARIATRIC SURGERY HX 2018 - PAST SURGICAL HISTORY OF 2019 paniculectomy - UNSPECIFIED ORAL SURGERY PROCEDURE, BY REPORT serene (4) teeth removal Current Outpatient Medications Medication Sig - pantoprazole DR (PROTONIX) 20 mg tablet Take 1 tablet by mouth daily before breakfast. Take on empty stomach, 1/2 hr before meal. - VIT/IRON FUMARATE/FA ( ORAL) Take by mouth. - citalopram (CELEXA) 40 mg tablet Take 1 tablet by mouth once daily. (Patient not taking: Reported on 10/27/2017 ) - ANTIPYRINE/BENZOCAINE/GLYCERIN (EAR DROPS OTIC) Use in the ears. (Patient not taking: Reported on 10/27/2021 ) No current facility-administered medications for this visit. ALLERGIES: Patient has no known allergies. PERSONAL HISTORY: Social History Tobacco Use - Smoking status: Never Smoker - Smokeless tobacco: Never Used Vaping Use - Vaping Use: Never used Substance Use Topics - Alcohol use: No - Drug use: No FAMILY HISTORY: FAMILY HISTORY Problem Relation Age of Onset - Heart Mother - None Father - other (heart disease [Other]) Unknown multiple maternal aunts and uncles had heart disease in her 40's - Hypertension Maternal Grandfather - Diabetes Maternal Grandfather REVIEW OF SYMPTOMS: The review of systems data was entered by the nurse and reviewed by me Nursing Notes: Megha Mac RN 10/27/2021 9:52 AM Signed REVIEW OF SYSTEMS: General: The patient NOTES fatigue, denies weight loss, denies weight gain, denies feeling hot, and denies feelings of cold. Eyes: The patient denies glaucoma, denies eye injury/surgery, does not wear glasses or contacts. Ear/Nose/Throat: The patient denies allergies, denies hayfever, denies ear infections, and denies bloody noses. Cardiovascular: The patient NOTES chest pain, denies heart disease, denies high blood pressure,denies cardiac stent, denies prior heart attack, denies irregular heart beat, denies high cholesterol, denies poor circulation, denies heart failure, other cardiac issues, denies claudication, denies cold feet, denies peripheral arterial stent. Respiratory: The patient denies tuberculosis, denies pneumonia, denies frequent cough, denies pulmonary embolism, denies shortness of breath, and denies coughing up blood. Gastrointestinal: The patient denies difficulty swallowing, denies acid reflux, denies ulcers, denies vomiting, denies jaundice/hepatitis, denies gallbladder problems, denies black or tarry stools, denies hemorrhoids, denies bleeding from rectum, denies diverticulitis, NOTES constipation, denies diarrhea, denies loss of stool control, and denies hernias. Kidney/Bladder: The patient denies kidney stones, denies urine infections, and denies bloody urine. Skin: The patient denies a history of skin cancer, denies bleeding/changing moles, and denies a history of skin rash. Neurologic: The patient denies a history of epilepsy/convulsions, denies headaches, denies head/spinal injuries, and denies stroke/TIA. Psychiatric: The patient denies psychiatric medications, denies depression, and denies voices, denies substance abuse. Endocrine: The patient denies thyroid disorders, denies diabetes, and denies hormonal problems. Hematologic: The patient denies a history of bruising, denies bleeding, and denies anemia, denies blood clots. Infections: The patient denies a history of measles and mumps, denies rheumatic fever, and denies sexually transmitted (more content not included)... [facility] 11-04-2021 History of Presen t illness Narrative HISTORY AND PHYSICAL Chasidy Linares 1990 REFERRING PHYSICIAN: Kayley England APRN.* CHIEF COMPLAINT: Consult (GERD/bowel changes) HPI: The patient is a 31 year old female referred for endoscopy. Chasidy notes no history of colon complaints. Patient came in with complaints of a burnging feeling in her stomach that goes up her throat and abdominal pain for 3 weeks. Patient has bariatric surgery in 2018. Did a few follow ups with doctor then did not return. Has no PCP currently. Was diagnosed with acid reflux but not treated. Stating her abdominal pain is a 4/10 today located in the top left. Is having constipation issues but that was 2 weeks ago. Said the stool had some dark red color on it but none recently. Did mention she is not as diligent with her vitamin regiment as she should be. . Denies chest pain, shortness of breath, jaw pain, arm pain, back pain, or any other symptoms at this time Chasidy has undergone prior endoscopy. The patient is being seen by me today at the request of Dr. England for my opinion and advice regarding Epigastric pain (primary encounter diagnosis) Gastroesophageal reflux disease, unspecified whether esophagitis present. PAST MEDICAL HISTORY Diagnosis Date NEGATIVE MEDICAL HISTORY Obesity PAST SURGICAL HISTORY Procedure Laterality Date BARIATRIC SURGERY HX 2018 PAST SURGICAL HISTORY OF 2019 paniculectomy UNSPECIFIED ORAL SURGERY PROCEDURE, BY REPORT serene (4) teeth removal Current Outpatient Medications Medication Sig pantoprazole DR (PROTONIX) 20 mg tablet Take 1 tablet by mouth daily before breakfast. Take on empty stomach, 1/2 hr before meal. VIT/IRON FUMARATE/FA ( ORAL) Take by mouth. citalopram (CELEXA) 40 mg tablet Take 1 tablet by mouth once daily. (Patient not taking: Reported on 10/27/2017 ) ANTIPYRINE/BENZOCAINE/GLYCERIN (EAR DROPS OTIC) Use in the ears. (Patient not taking: Reported on 10/27/2021 ) No current facility-administered medications for this visit. ALLERGIES: Patient has no known allergies. PERSONAL HISTORY: Social History Tobacco Use Smoking status: Never Smoker Smokeless tobacco: Never Used Vaping Use Vaping Use: Never used Substance Use Topics Alcohol use: No Drug use: No FAMILY HISTORY: FAMILY HISTORY Problem Relation Age of Onset Heart Mother None Father other (heart disease [Other]) Unknown multiple maternal aunts and uncles had heart disease in her 40's Hypertension Maternal Grandfather Diabetes Maternal Grandfather REVIEW OF SYMPTOMS: The review of systems data was entered by the nurse and reviewed by me Nursing Notes: Megha Mac RN 10/27/2021 9:52 AM Signed REVIEW OF SYSTEMS: General: The patient NOTES fatigue, denies weight loss, denies weight gain, denies feeling hot, and denies feelings of cold. Eyes: The patient denies glaucoma, denies eye injury/surgery, does not wear glasses or contacts. Ear/Nose/Throat: The patient denies allergies, denies hayfever, denies ear infections, and denies bloody noses. Cardiovascular: The patient NOTES chest pain, denies heart disease, denies high blood pressure,denies cardiac stent, denies prior heart attack, denies irregular heart beat, denies high cholesterol, denies poor circulation, denies heart failure, other cardiac issues, denies claudication, denies cold feet, denies peripheral arterial stent. Respiratory: The patient denies tuberculosis, denies pneumonia, denies frequent cough, denies pulmonary embolism, denies shortness of breath, and denies coughing up blood. Gastrointestinal: The patient denies difficulty swallowing, denies acid reflux, denies ulcers, denies vomiting, denies jaundice/hepatitis, denies gallbladder problems, denies black or tarry stools, denies hemorrhoids, denies bleeding from rectum, denies diverticulitis, NOTES constipation, denies diarrhea, denies loss of stool control, and denies hernias. Kidney/Bladder: The patient denies kidney stones, denies urine infections, and denies bloody urine. Skin: The patient denies a history of skin cancer, denies bleeding/changing moles, and denies a history of skin rash. Neurologic: The patient denies a history of epilepsy/convulsions, denies headaches, denies head/spinal injuries, and denies stroke/TIA. Psychiatric: The patient denies psychiatric medications, denies depression, and denies voices, denies substance abuse. Endocrine: The patient denies thyroid disorders, denies diabetes, and denies hormonal problems. Hematologic: The patient denies a history of bruising, denies bleeding, and denies anemia, denies blood clots. Infections: The patient denies a history of measles and mumps, denies rheumatic fever, and denies sexually transmitted diseases. Musculoskeletal: The patient denies back pain/injury, denies back problems, denies sciatica, denies knee/foot trouble, denies arthritis, or denies gout. When was patient's last Mammogram screening? Last Colonoscopy: none Megha Mac RN PHYSICAL EXAMINATION: General: The patient is 31 year old female, well nourished, well hydrated in no acute distress. The patient is oriented to time, place, and person. VITALS: Blood pressure 118/76, pulse 101, temperature 36.6 C (97.9 F), height 170.2 cm (5' 7 ), weight 92.2 kg (203 lb 3.2 oz), last menstrual period 11/06/2016, SpO2 100 %. Body mass index is 31.83 kg/m . HEENT: Normal cephalic, ataumatic, pupils are equally round, sclera are anicteric, mucous membranes are moist, oropharynx is clear. Neck has no masses, asymmetry or lymphadenopathy. Thyroid is unremarkable. Respiratory: Clear to auscultation and percussion. Normal respiratory excursion and pattern. Cardiac: Examination is regular rate and rhythm. Abdominal exam: Soft, nontender, with no palpable masses. No hepatosplenomegaly. No palpable hernias. Rectal exam: exam deferred Extremities: no clubbing, cyanosis or edema. No adenopathy. Other: LABORATORY VALUES: As Noted RADIOLOGIC STUDIES: As Noted Assessment IMPRESSION: Epigastric pain (primary encounter diagnosis) Gastroesophageal reflux disease, unspecified whether esophagitis present PLAN: I plan to perform upper endoscopy. We discussed the risks and benefits of the planned endoscopy. I have informed the patient that complications can occur including failure to complete the endoscopy and perforation. The patient had the opportunity to ask questions concerning the planned endoscopy. My staff has also explained the procedure to the patient in understandable terms and has given the patient printed material concerning the procedure. The patient freely consents to surgery. Diagnoses: (R10.13) Epigastric pain (primary encounter diagnosis) (K21.9) Gastroesophageal reflux disease, unspecified whether esophagitis present My findings have been communicated to Dr. England via shared medical record. This note will be forwarded to Dr. Epperson primary care provider on file.. Return to Clinic: The patient is instructed to follow-up with me 1 week post operatively. COVID (Procedure Consent) Procedure Criteria Procedure Criteria: Yes Elective The surgeon/proceduralist and patient have discussed in detail the risk of exposure to and/or potential harm posed by the COVID-19 virus with having a surgery/procedure at this time versus the risk of delaying the surgery/procedure. It is not possible to know either the risk of delaying the surgery or procedure or chance of getting an infection with perfect accuracy, but a joint decision was made between the patient and the surgeon/proceduralist to proceed at this time with the scheduled surgery/procedure as indicated on the consent form. Alton Morrison III, MD documented in this encounter [facility] 10-27-2021 Miscellaneous Notes 11/16/[address] Morrison [facility] documented in this encounter [facility] 10-27-2021 Nurse Note REVIEW OF SYSTEMS: General: The patient NOTES fatigue, denies weight loss, denies weight gain, denies feeling hot, and denies feelings of cold. Eyes: The patient denies glaucoma, denies eye injury/surgery, does not wear glasses or contacts. Ear/Nose/Throat: The patient denies allergies, denies hayfever, denies ear infections, and denies bloody noses. Cardiovascular: The patient NOTES chest pain, denies heart disease, denies high blood pressure,denies cardiac stent, denies prior heart attack, denies irregular heart beat, denies high cholesterol, denies poor circulation, denies heart failure, other cardiac issues, denies claudication, denies cold feet, denies peripheral arterial stent. Respiratory: The patient denies tuberculosis, denies pneumonia, denies frequent cough, denies pulmonary embolism, denies shortness of breath, and denies coughing up blood. Gastrointestinal: The patient denies difficulty swallowing, denies acid reflux, denies ulcers, denies vomiting, denies jaundice/hepatitis, denies gallbladder problems, denies black or tarry stools, denies hemorrhoids, denies bleeding from rectum, denies diverticulitis, NOTES constipation, denies diarrhea, denies loss of stool control, and denies hernias. Kidney/Bladder: The patient denies kidney stones, denies urine infections, and denies bloody urine. Skin: The patient denies a history of skin cancer, denies bleeding/changing moles, and denies a history of skin rash. Neurologic: The patient denies a history of epilepsy/convulsions, denies headaches, denies head/spinal injuries, and denies stroke/TIA. Psychiatric: The patient denies psychiatric medications, denies depression, and denies voices, denies substance abuse. Endocrine: The patient denies thyroid disorders, denies diabetes, and denies hormonal problems. Hematologic: The patient denies a history of bruising, denies bleeding, and denies anemia, denies blood clots. Infections: The patient denies a history of measles and mumps, denies rheumatic fever, and denies sexually transmitted diseases. Musculoskeletal: The patient denies back pain/injury, denies back problems, denies sciatica, denies knee/foot trouble, denies arthritis, or denies gout. When was patient's last Mammogram screening? Last Colonoscopy: none Megha Mac RN documented in this encounter [facility] 10-26-2021 Note HNO ID: [id number] Author: Kayley England APRN.[employer] SH[employer]ADER Service: ? Author Type: Nurse Practitioner Type: Progress Notes Filed: 10/26/2021 12:14 PM Note Text: Subjective Patient came in with complaints of a burnging feeling in her stomach that goes up her throat and abdominal pain for 3 weeks. Patient has bariatric surgery in 2018. Did a few follow ups with doctor then did not return. Has no PCP currently. Was diagnosed with acid reflux but not treated. Stating her abdominal pain is a 4/10 today located in the top left. Is having constipation issues but that was 2 weeks ago. Said the stool had some dark red color on it but none recently. Did mention she is not as diligent with her vitamin regiment as she should be. . Denies chest pain, shortness of breath, jaw pain, arm pain, back pain, or any other symptoms at this time The history is provided by the patient. No professor of languages was used. Constipation Review of Systems Constitutional: Negative. Gastrointestinal: Positive for constipation. Skin: Negative. Objective Physical Exam Constitutional: Appearance: Normal appearance. Cardiovascular: Rate and Rhythm: Normal rate and regular rhythm. Heart sounds: Normal heart sounds. Pulmonary: Effort: Pulmonary effort is normal. Breath sounds: Normal breath sounds. Abdominal: General: Abdomen is flat. Palpations: Abdomen is soft. Comments: Green is where she experiences the burning feeling. Red is the abdominal pain 09/10 Neurological: Mental Status: She is alert. PAST MEDICAL HISTORY Diagnosis Date - NEGATIVE MEDICAL HISTORY PAST SURGICAL HISTORY Procedure Laterality Date - UNSPECIFIED ORAL SURGERY PROCEDURE, BY REPORT serene (4) teeth removal ALLERGIES Patient has no known allergies. MEDICATIONS pantoprazole DR (PROTONIX) 20 mg tablet Take 1 tablet by mouth daily before breakfast. Take on empty stomach, 1/2 hr before meal. citalopram (CELEXA) 40 mg tablet Take 1 tablet by mouth once daily. ANTIPYRINE/BENZOCAINE/GLYCERIN (EAR DROPS OTIC) Use in the ears. VIT/IRON FUMARATE/FA ( ORAL) Take by mouth. FAMILY HISTORY Problem Relation Age of Onset - Heart Mother - None Father - other (heart disease [Other]) Unknown multiple maternal aunts and uncles had heart disease in her 40's - Hypertension Maternal Grandfather - Diabetes Maternal Grandfather Social History Tobacco Use - Smoking status: Never Smoker - Smokeless tobacco: Never Used Substance Use Topics - Alcohol use: No - Drug use: No ASSESSMENT/PLAN: 1. Gastroesophageal reflux disease without esophagitis - ICD9: 530.81, ICD10: K21.9 Patient was prescribed Protonix daily. She has an appt with general surgery tomorrow for further evaluation of abdominal and and burning feeling. Also got her a new PCP appointment. Patient was educated heavily about the importance of routine care after bariatric surgery and the complications that could arise. She should find someone who specializes in this area for future check ups. Kayley England APRN.[facility] 10-26-2021 History of Presen t illness Narrative Images from the original note were not included. Subjective Patient came in with complaints of a burnging feeling in her stomach that goes up her throat and abdominal pain for 3 weeks. Patient has bariatric surgery in 2018. Did a few follow ups with doctor then did not return. Has no PCP currently. Was diagnosed with acid reflux but not treated. Stating her abdominal pain is a 4/10 today located in the top left. Is having constipation issues but that was 2 weeks ago. Said the stool had some dark red color on it but none recently. Did mention she is not as diligent with her vitamin regiment as she should be. . Denies chest pain, shortness of breath, jaw pain, arm pain, back pain, or any other symptoms at this time The history is provided by the patient. No professor of languages was used. Constipation Review of Systems Constitutional: Negative. Gastrointestinal: Positive for constipation. Skin: Negative. Objective Physical Exam Constitutional: Appearance: Normal appearance. Cardiovascular: Rate and Rhythm: Normal rate and regular rhythm. Heart sounds: Normal heart sounds. Pulmonary: Effort: Pulmonary effort is normal. Breath sounds: Normal breath sounds. Abdominal: General: Abdomen is flat. Palpations: Abdomen is soft. Comments: Green is where she experiences the burning feeling. Red is the abdominal pain 4/10 Neurological: Mental Status: She is alert. PAST MEDICAL HISTORY Diagnosis Date NEGATIVE MEDICAL HISTORY PAST SURGICAL HISTORY Procedure Laterality Date UNSPECIFIED ORAL SURGERY PROCEDURE, BY REPORT serene (4) teeth removal ALLERGIES Patient has no known allergies. MEDICATIONS pantoprazole DR (PROTONIX) 20 mg tablet Take 1 tablet by mouth daily before breakfast. Take on empty stomach, 1/2 hr before meal. citalopram (CELEXA) 40 mg tablet Take 1 tablet by mouth once daily. ANTIPYRINE/BENZOCAINE/GLYCERIN (EAR DROPS OTIC) Use in the ears. VIT/IRON FUMARATE/FA ( ORAL) Take by mouth. FAMILY HISTORY Problem Relation Age of Onset Heart Mother None Father other (heart disease [Other]) Unknown multiple maternal aunts and uncles had heart disease in her 40's Hypertension Maternal Grandfather Diabetes Maternal Grandfather Social History Tobacco Use Smoking status: Never Smoker Smokeless tobacco: Never Used Substance Use Topics Alcohol use: No Drug use: No ASSESSMENT/PLAN: 1. Gastroesophageal reflux disease without esophagitis - ICD9: 530.81, ICD10: K21.9 Patient was prescribed Protonix daily. She has an appt with general surgery tomorrow for further evaluation of abdominal and and burning feeling. Also got her a new PCP appointment. Patient was educated heavily about the importance of routine care after bariatric surgery and the complications that could arise. She should find someone who specializes in this area for future check ups. Kayley England APRN.[facility] documented in this encounter [facility] 10-26-2021 Miscellaneous Notes Protocol recommends see provider in 4 hours. Patient states she will go to . Reason for Disposition [1] MILD-MODERATE pain AND [2] constant AND [3] present > 2 hours Answer Assessment - Initial Assessment Questions 1. LOCATION: Abdominal pain today from middle of chest to naval. 2. RADIATION: Radiates to right side on bra line. 3. ONSET: 3 weeks ago 4. SUDDEN: Gradual with constipation and diarrhea 5. PATTERN Comes and goes. Mostly at night when working (works 3rd shift). 6. SEVERITY: Has been severe a few times, shooting pain/burning. When severe leaves her doubled over- lasting maybe 10 min. A little tender to touch. Upper abdomen is not soft. Mild most of the time and its a burning, getting worse. Today the pain is mild. 7. RECURRENT SYMPTOM: Hx gastric bypass in 2018. 8. CAUSE: Not sure. 9. RELIEVING/AGGRAVATING FACTORS: Drinking lots of water made it better. Food temporarily made it better. Tried tums- did not help. 10. OTHER SYMPTOMS: Diarrhea some days, some days constipation. No urine problems. Has had nausea. No vomiting. No fevers. Coffee ground stool 2-3 weeks ago- for a couple days- resolved. 11. : No. Protocols used: ABDOMINAL PAIN - [id number] documented in this encounter [facility] documented as of this encounter (statuses as of 10/26/2021) [facility]02-03-2016 History of Past illness Narrative* Problem Noted Date Resolved Date Normal repeat , antepartum 07/06/2015 10/15/2016 Overview: Boy on Us- [place] Short interval between pregn ancies affecting , antepartum 07/06/2015 10/15/2016 GBS (group B streptococcus) UTI complicating pre gnancy 06/25/2014 07/06/2015 , supervision, normal, first 06/23/2014 07/06/2015 Overview: Girl on - Radha documented as of this encounter (statuses as of 10/26/2021) [facility] History of Past illness Narrative* Problem Noted Date Resolved Date Normal repeat , antepartum 07/06/2015 10/15/2016 Overview: Boy on - [place] Short interval between pregn ancies affecting , antepartum 07/06/2015 10/15/2016 GBS (group B streptococcus) UTI complicating pre gnancy 06/25/2014 07/06/2015 , supervision, normal, first 06/23/2014 07/06/2015 Overview: Girl on - Radha documented as of this encounter (statuses as of 11/04/2021) [facility] History of Past illness Narrative* Problem Noted Date Resolved Date Normal repeat , antepartum 07/06/2015 10/15/2016 Overview: Boy on Us- [place] Short interval between pregn ancies affecting , antepartum 07/06/2015 10/15/2016 GBS (group B streptococcus) UTI complicating pre gnancy 06/25/2014 07/06/2015 , supervision, normal, first 06/23/2014 07/06/2015 Overview: Girl on - Radha documented as of this encounter (statuses as of 11/17/2021) [facility] History of Past illness Narrative* Problem Noted Date Resolved Date Normal repeat , antepartum 07/06/2015 10/15/2016 Overview: Boy on Us- [place] Short interval between pregn ancies affecting , antepartum 07/06/2015 10/15/2016 GBS (group B streptococcus) UTI complicating pre gnancy 06/25/2014 07/06/2015 , supervision, normal, first 06/23/2014 07/06/2015 Overview: Girl on sharon Garcia documented as of this encounter (statuses as of 12/01/2021) [facility] History of Past illness Narrative* Problem Noted Date Resolved Date Normal repeat , antepartum 07/06/2015 10/15/2016 Overview: Boy on Sharon [place] Short interval between pregn ancies affecting , antepartum 07/06/2015 10/15/2016 GBS (group B streptococcus) UTI complicating pre gnancy 06/25/2014 07/06/2015 , supervision, normal, first 06/23/2014 07/06/2015 Overview: Girl on sharon Garcia documented as of this encounter (statuses as of 12/05/2021) [facility] History of Past illness Narrative* Problem Noted Date Resolved Date Normal repeat , antepartum 07/06/2015 10/15/2016 Overview: Boy on Sharon [place] Short interval between pregn ancies affecting , antepartum 07/06/2015 10/15/2016 GBS (group B streptococcus) UTI complicating pre gnancy 06/25/2014 07/06/2015 , supervision, normal, first 06/23/2014 07/06/2015 Overview: Girl on sharon Garcia Obesity 06/23/2014 12/28/2021 documented as of this encounter (statuses as of 12/28/2021) [facility] Gastroesophageal reflux disease without esophagitis- Primary Esophageal reflux [facility] Diagnosis Epigastric pain- Primary Abdominal pain, epigastric Gastroesophageal reflux disease, unspecified whether esophagitis present [facility] Diagnosis Gastro-esophageal reflux disease without esophagitis Esophageal reflux [facility] Diagnosis Epigastric pain- Primary Abdominal pain, epigastric Gastro-esophageal reflux disease without esophagitis Esophageal reflux [facility] Diagnosis Ulcer at site of surgical anastomosis following bypass of stomach- Primary documented in this encounter [facility] note* Diagnosis Routine medical exam- Primary Routine general medical examination at a health care facility S/P gastric bypass Bariatric surgery status Encounter for hepatitis C screening test for low risk patient Obesity, Class I, BMI 30-34.9 Obesity, unspecified Tension headache NOS documented in this encounter [facility] for referral (narrative)* Outpatient Procedure (Routine) - Closed Specialty Diagnoses / Procedures Referred By Livan solo Referred To [facility] Diagnoses Gastro-esophageal reflux disease without esophagitis Procedures EGD DIAGNOSTIC ESOPHAGOGASTRODUODENOSC OPY TRANSORAL DIAGNOSTIC Alton Morrison MD [address] [place] [address] [place] [phone] Referral ID Status Reason Start Date Expiration Date V isits Requested Visits Authorized [id number] Closed Auto-Generate d Referral 10/27/2021 10/27/2022 [address] [facility] for referral (narrative)* Outpatient Procedure (Routine) - Closed Specialty Diagnoses / Procedures Referred By Livan solo Referred To [facility] Diagnoses Gastro-esophageal reflux disease without esophagitis Procedures EGD DIAGNOSTIC ESOPHAGOGASTRODUODENOSC OPY TRANSORAL DIAGNOSTIC Alton Morrison MD [address] [place] [address] [place] [phone] Referral ID Status Reason Start Date Expiration Date V isits Requested Visits Authorized [id number] Closed Auto-Generate d Referral 10/27/2021 10/27/2022 [address] [facility] for visit Narrative* Outpatient Procedure (Routine) - Closed Specialty Diagnoses / Procedures Referred By Livan solo Referred To [facility] Diagnoses Gastro-esophageal reflux disease without esophagitis Procedures EGD DIAGNOSTIC ESOPHAGOGASTRODUODENOSC OPY TRANSORAL DIAGNOSTIC Alton Morrison MD [address] [place] [address] [facility] [address] [place] [address] Referral ID Status Reason Start Date Expiration Date V isits Requested Visits Authorized [id number] Closed Auto-Generate d Referral 10/27/2021 10/27/2022 1 1 [facility] Chief Complaint Chief Complaint Description Start Date excess skin post gastric bypass Preliminary chief co mplaint data, not yet signed by the author as of Instructions Instruction Description Start Date Completed Advance Directives No Advanced Directives Records FoundDocuments on File Type Date Recorded 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 Review of System There may be information available, but it has not been provided by the sender. Family History There may be information available, but it has not been provided by the sender.No Family History Records FoundNo Family History Records FoundNo Family History Records FoundNo Family History Records Found History of Present Illness There may be information available, but it has not been provided by the sender. Summary Purpose Reason for Referral Specialty Diagnoses / Procedures Referred By Livan solo Referred To Contact General Surgery Diagnoses Gastroesophageal reflux disease without esophagitis Procedures CONSULT TO GENERAL SURGERY OFFICE/OUTPATIENT [facility] 60-74 MINUTES Kayley England APRN.[employer]STAUR[employer] SHIFT LEADER [address] [place] [address] Referral ID Status Reason Start Date Expiration Date Visits Requested Visits Authorized [id number] Pending Review PCP Requested Referral 10/26/2021 10/26/2022 1 1 Medications Administered Section Inactive Administered Medications - up to 3 most recent administrations Medication Order MAR Action Action Date Dose Rate Site benzocaine 20% 1 [place] (TOPEX) 1 [place], TOPICAL, DIRECTED, Starting on [place] 11/16/21 at 1230, Until [place] 11/16/21 at 1629, DOSING DIRECTED BY PHYSICIAN FOR PROCEDURAL SEDATION ONLY - Pharmaceutical Waste: Aerosol -, Intraprocedure Given 11/16/2021 9:53 AM EDT 5 Sprays diphenhydrAMINE 12.5-50 mg injection (BENADRYL) 12.5-50 mg, INTRAVENOUS, DIRECTED, Starting on [place] 11/16/21 at 1230, Until [place] 11/16/21 at 1629, DOSING DIRECTED BY PHYSICIAN FOR PROCEDURAL SEDATION ONLY, Intraprocedure Given 11/16/2021 9:56 AM EDT 50 mg fentaNYL 50 mcg/mL 25-100 mcg injection (SUBLIMAZE) 25-100 mcg, INTRAVENOUS, DIRECTED, Starting on [place] 11/16/21 at 1230, Until [place] 11/16/21 at 1629, DOSING DIRECTED BY PHYSICIAN FOR PROCEDURAL SEDATION ONLY, Intraprocedure Given 11/16/2021 9:54 AM EDT 50 mcg lactated ringers iv infusion 30 mL/hr, INTRAVENOUS, CONTINUOUS, Starting on [place] 11/16/21 at 0930, Until [place] 11/16/21 at 1012, Preprocedure New Bag/Syringe/Haylee le 11/16/2021 9:25 AM EDT 30 mL/hr 30 mL/hr Arm, Right midazolam (PF) 1-5 mg injection (VERSED) 1-5 mg, INTRAVENOUS, DIRECTED, Starting on [place] 11/16/21 at 1230, Until [place] 11/16/21 at 1629, DOSING DIRECTED BY PHYSICIAN FOR PROCEDURAL SEDATION ONLY, Intraprocedure Given 11/16/2021 9:58 AM EDT 2 mg Additional Source Comments Reason for Visit (unrecogniz ed section and content) Reason Comments Abdominal Pain Reason Comments Constipation constipation and sto mach delaney x 2-3 weeks Reason Comments Consult GERD/bowel changes Reason Comments 11/16/[address] Morrison Reason Comments Follow Up EGD Reason Comments Establish Care INFORMATION SOURCE (unrecogn ized section and content) DATE CREATED AUTHOR AUTHOR'S ORGANIZ ATION 2020 [facility] DATE CREATED AUTHOR AUTHOR'S ORGANIZ ATION 10/01/2020 [facility] DATE CREATED AUTHOR AUTHOR'S ORGANROSS ATION 12/31/2021 [facility] Source Comments (unrecognize d section and content) In the event this informatio n is protected by the Federal Confidentiality of Alcohol and Drug Abuse Patient Records regulations: The Federal rules restrict any use of the information to criminally investigate or prosecute any alcohol or drug abuse patient.[facility] the event this information is protected by the Federal Confidentiality of Alcohol and Drug Abuse Patient Records regulations: The Federal rules restrict any use of the information to criminally investigate or prosecute any alcohol or drug abuse patient.[facility] the event this information is protected by the Federal Confidentiality of Alcohol and Drug Abuse Patient Records regulations: The Federal rules restrict any use of the information to criminally investigate or prosecute any alcohol or drug abuse patient.[facility] the event this information is protected by the Federal Confidentiality of Alcohol and Drug Abuse Patient Records regulations: The Federal rules restrict any use of the information to criminally investigate or prosecute any alcohol or drug abuse patient.[facility] the event this information is protected by the Federal Confidentiality of Alcohol and Drug Abuse Patient Records regulations: The Federal rules restrict any use of the information to criminally investigate or prosecute any alcohol or drug abuse patient.[facility] CenterIn the event this information is protected by the Federal Confidentiality of Alcohol and Drug Abuse Patient Records regulations: The Federal rules restrict any use of the information to criminally investigate or prosecute any alcohol or drug abuse patient.[facility] CenterIn the event this information is protected by the Federal Confidentiality of Alcohol and Drug Abuse Patient Records regulations: The Federal rules restrict any use of the information to criminally investigate or prosecute any alcohol or drug abuse patient.[facility] FOR RECORDS PERTAINING TO PATIENTS WHO ARE OR HAVE BEEN ENROLLED IN A CHEMICAL DEPENDENCY/SUBSTANCEABUSE PROGRAM, SOME INFORMATION MAY BE OMITTED. This clinical summary was aggregated from multiple sources. Caution should be exercised in using it in the provision of clinical care. This summary normalizes information from multiple sources, and as a consequence, information in this document may materially change the coding, format and clinical context of patient data. In addition, data may be omitted in some cases. CLINICAL DECISIONS SHOULD BE BASED ON THE PRIMARY CLINICAL RECORDS. [facility] [employer] [facility]. provides no warranty or guarantee of the accuracy or completeness of information in this document.
[2023-08-02 10:15] LABS: Hemoglobin A1c 5.3 % (3.8-5.6)
[2023-08-02 10:26] LABS: Vitamin D,25 Hydroxy 24.8 ng/mL
[2023-08-02 10:29] LABS: Cholesterol 140 mg/dL (200); High Density Lipoprotein 71 mg/dL; T4 Free Direct 0.99 ng/dL (0.76-1.46); Thyroid Stim Hormone (TSH) 0.91 uIU/mL (0.358-3.74); Triglycerides 51 mg/dL; Very Low Density Lipoprotein 10 mg/dL (5-40)
[2023-08-07 09:08] LABS: Testosterone Free 3.4 pg/mL (0.0-4.2); Thyroid Peroxidase AB < 9 IU/mL (0-34)
== END | disposition home or self-care (01) ==
PROVIDERS: Referring Provider Nurse Practitioner Women's Health; Visit Provider Nurse Practitioner Women's Health
DX: N93.9 Abnormal uterine and vaginal bleeding, unspecified (principal); Z13.220 Encounter for screening for lipoid disorders; Z13.21 Encounter for screening for nutritional disorder
CPT/HCPCS: 36415; 80061; 82306; 82627; 83036; 84146; 84402; 84439; 84443; 86376; 82626

== ENCOUNTER 2024-01-24 08:57 | Inpatient (IN) | payer BC, SELFPAY ==
[2024-01-24] VITALS (21 sets, daily range): BP systolic 121–155; BP diastolic 67–97; PULSE 74–107; RESP 12–22; TEMP 36.4–37.5; O2SAT 97–100; BMI 36.8
--- NOTE | 2024-01-24 09:17 | EDS_ITS ---
HPI History of Present Illness HPI Narrative: 33-year-old female prior history of gastric bypass and abdominoplasty. 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 Yesterday she was bit by a cat on her left hand. Today has pain swelling and drainage of pus. She is not diabetic. Denies any other complaints. Chief Complaint: Bite Informant: patient Occured/Mechanism Comment: Cat bite left hand yesterday. Onset/Context/Timing Onset: Today and Yesterday Context: Gradual Onset PFSH PFSH Medical History Depression Home Medications ?Medication ?Instructions ?Recorded ?Last Taken ?Type NK 01/24/24 Unknown History Allergy/AdvReac Type Severity Reaction Status Date / Time No Known Allergies Allergy Verified 01/24/24 08:58 Family History Mother Heart disease Grandmother Diabetes Heart disease Grandfather No problems noted. 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
--- NOTE | 2024-01-24 09:17 | EX.ED.VISEXT ---
HPI History of Present Illness HPI Narrative: 33-year-old female prior history of gastric bypass and abdominoplasty. 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 Yesterday she was bit by a cat on her left hand. Today has pain swelling and drainage of pus. She is not diabetic. Denies any other complaints. Chief Complaint: Bite Informant: patient Occured/Mechanism Comment: Cat bite left hand yesterday. Onset/Context/Timing Onset: Today and Yesterday Context: Gradual Onset Narrative Narrative: 33-year-old female cat bite left hand yesterday pain, swelling infected today. Prior similar symptoms: No Recent Illness/Hospitalization: No ROS ROS ED ROS Narrative Left hand pain and swelling after being bitten. Constitutional Constitutional ED: Denies chills or fever(s) Eyes Eyes: Denies blurry vision ENT ENT ED: Denies ear pain Cardiovascular Cardiovascular: Denies chest pain Respiratory/Chest Respiratory/Chest: Denies cough or dyspnea Gastrointestinal Gastrointestinal: Denies abdominal pain Genitourinary Genitourinary ED: Denies dysuria or hematuria Musculoskeletal Musculoskeletal: Denies arthralgias Integumentary Denies abscess or Abrasions Neurologic Neurologic: Denies headache(s) Psychiatric Psychiatric: Denies anxiety or depression Endocrine Endocrinology: Denies polydipsia or polyphagia Hematologic/Lymphatic Hematologic/Lymphatic: Denies easy bleeding or easy bruising Allergic/Immunologic Allergic/Immunologic ED: Denies mouth swelling, tongue swelling or urticaria PFSH PFSH Medical History Depression Home Medications ?Medication ?Instructions ?Recorded ?Last Taken ?Type NK 01/24/24 Unknown History Allergy/AdvReac Type Severity Reaction Status Date / Time No Known Allergies Allergy Verified 01/24/24 08:58 Family History Mother Heart disease Grandmother Diabetes Heart disease Grandfather No problems noted. 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 Vital signs are stable afebrile. H EENT exam unremarkable. Neck nontender. Lungs clear to auscultation. Heart regular rhythm rate about 105 no murmur. Abdomen soft nontender. Moving all 4 extremities. Left hand puncture wounds on the back of her left hand from a cat bite. Left hand is swollen and red on the dorsum. There is mild swelling on the palm. She can fully extend and flex the hand. She has more pain with extension. Does not have any lymphangitic streaking in her forearm. No joint involvement of the wrist or elbow. And no axillary lymphadenopathy. Hand is neurovascularly intact. Obvious cat bite infection. Const Vital Signs: 01/24/24 08:58 01/24/24 09:01 Temperature 98.4 F 98.4 F Temperature Source Temporal Oral Pulse Rate 107 H 107 H Respiratory Rate 16 16 Blood Pressure 143/79 H 143/79 H Blood Pressure Mean 100 100 Pulse Ox 97 97 Oxygen Delivery Method Room Air Room Air Positive well nourished and well developed; Negative for cachectic, contractures or unkempt General Appearance ED: well developed and NAD; Negative for unkempt, cachectic or contractures Nutritional Appearance: Negative for cachectic HEENT Reports moist mucous membranes normocephalic and atraumatic; Negative for trauma or tenderness Eyes PERRL and EOMs intact bilaterally General Eye ED: Negative for other Neck full ROM and no lymphadenopathy General: Negative for tenderness Resp normal respiratory effort and clear to auscultation bilaterally Auscultation: Negative for rales, rhonchi or wheezes Cardio regular rhythm, S1 normal heart sound, S2 normal heart sound and no murmurs; Negative for regular rate Rate: tachycardic GI non-tender, non-distended and no masses Auscultation: normoactive bowel sounds Palpation: soft; Negative for tender or guarding Back/Spine no CVA tenderness General Back: Negative for CVA tenderness Cervical Spine: Negative for cervical spine tenderness Thoracic Spine / Upper Back: Negative for thoracic spinal tenderness Extremity normal to inspection and full ROM Extremity Narrative: Except left hand cat bite infection. Puncture wounds on the dorsum. Reddened swollen on the dorsum. Mild swelling and redness on the palm. Able to flex and extend but most discomfort with extension. No lymphangitic streaking. No axillary lymphadenopathy. Neurovascularly intact. General Extremety ED: Yes edema and tenderness General Extremity: edema Neuro oriented x3 and CN's II-XII intact bilaterally Sensorium / Orientation: alert, oriented to person, oriented to place, oriented to time and orientation impaired Motor Exam: strength 5/5 throughout Psych mental status grossly normal and thought process normal Appearance: Negative for unkempt Attitude: No agitated Mood & Affect: Negative for anxious Skin Lesions: no lesions Rashes: No no rashes MDM MDM MDM Narrative Medical decision making narrative: 33-year-old female left hand cat bite infection. Was started on IV Unasyn. Morphine for pain Zofran to prevent nausea. Screening labs. I have already spoken to Dr. Osito Wing of plastic surgery to come down evaluate the patient most likely do incision and drainage. She will be admitted for further IV antibiotics I have the hospitalist on page. Discharge Plan Triage Chief Complaint: Bite ED Provider: Colton Bautista Dx/Rx/DC Orders Clinical Impression: Cat bite of left hand with infection, Cellulitis Prescriptions: No Action NK Primary Care Provider: Care Physician,No Primary Referrals: Care Physician,No Primary [Primary Care Provider] - Print Language: Azeri Disposition Disposition: Acute Care Hospital [facility]
[2024-01-24] MEDS: Morphine 4 MG/ML Syringe IV (09:34)
[2024-01-24] MEDS: Ampicillin/Sulbactam 3 GM in 0.9% Normal Saline (100mL MB+) 100 ML IV ×2 (09:34→18:53)
[2024-01-24] MEDS: Ondansetron 4 MG/2 ML Vial IV (09:34)
[2024-01-24] MEDS: Lidocaine 1% (20 ml mdv) 20 ML Vial 10 ML INFILT (09:34)
[2024-01-24 09:38] LABS: Absolute Lymphocyte Count 1.56 X10^3/uL (0.83-4.51); Absolute Neutrophil Count 8.9 X10^3/uL (2.0-7.7); Basophil# 0.07 X10^3/uL; Basophil% 0.6 % (0-1); Eosinophil# 0.03 X10^3/uL; Eosinophils% 0.3 % (0-5); Hematocrit 38.1 % (37-47); Hemoglobin 12.7 g/dL (12.0-15.0); Lymphocyte # 1.56 X10^3/ul (0.83-4.51); Lymphocyte % 13.6 % (19-41); Mean Corp Hgb Conc 33.3 g/dL (32-36); Mean Corpuscular Hgb 29.8 pg (27.0-32.0); Mean Corpuscular Volume 89.4 fL (81-99); Mean Platelet Vol. 11.8 fl (6.2-12.0); Monocyte# 0.88 X10^3/uL; Monocyte% 7.7 % (0-10); NRBC Flagged by Analyzer 0 % (0-5); Neutrophil # 8.91 X10^3/uL (2.7-7.7); Neutrophil % 77.4 % (47-70); Platelet Count 231 K/mm3 (150-450); RBC Distribution Width CV 13.8 % (11.6-14.6); RBC Distribution Width SD 44.5 fl (35.1-43.9); Red Blood Count 4.26 M/mm3 (4.2-5.4); White Blood Count 11.5 K/mm3 (4.4-11.0)
--- NOTE | 2024-01-24 09:40 | RAD_ITS ---
STUDY: X-RAY - LEFT HAND REASON FOR EXAM: Female, 33 years old. Bite. TECHNIQUE: 3 views of the left hand. COMPARISON: None. FINDINGS: Normal radiocarpal articulation. Normal distal radioulnar joint. Normal visualized carpal bones. Normal carpal articulations. Normal carpometacarpal articulation of the thumb. Normal second through fifth carpometacarpal joints. Normal metacarpi. Normal metacarpophalangeal joint of the thumb. Normal interphalangeal joint of the thumb. Normal proximal and distal phalanges of the thumb. Normal metacarpophalangeal joints of the second through fifth fingers. Normal proximal and distal interphalangeal joints of the second through fifth fingers. Normal phalanges of the second through fifth fingers. There is no demonstrated acute fracture. There is soft tissue swelling along the dorsum of the hand. RAD/Hand Min 3 Views IMPRESSION: Soft tissue swelling along the dorsum of the hand. No demonstrated acute fracture. Electronically Signed: Mihai Buckley MD at 9:57 EDT ,
[2024-01-24 09:44] LABS: Anion Gap 4 (5-15); BUN 10 mg/dL (7-18); BUN/Creat Ratio 16.6 RATIO (10-20); Calcium,Total 8.9 mg/dL (8.5-10.1); Chloride 108 mmol/L (98-107); EST Glomerular Filtration Rate 123 mL/min (>60); Est Glom Filt Rate - Afr Amer 149 mL/min (>60); Estimated Creatinine Clearance 170.71 ml/min; Glucose 95 mg/dL (74-106); Potassium 3.5 mmol/L (3.5-5.1); Sodium Level 139 mmol/L (136-145)
--- NOTE | 2024-01-24 10:15 | HP.PCM.HOS_ITS ---
HPI - General General Date of Admission: 01/24/24 Date of Service: 01/24/24 Chief Complaint: Cat bite, worsening appearance. 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 She denies any onset of fevers or chills. Workup in the ED included T98.4, heart 107, BP 143/79, respiratory rate 16, 97% room air with most recent repeat vitals T90.3 Oral, heart rate 102, BP 137/72, respiratory 16, 97% room air, CBC with WBC 11.5, hemoglobin 12.7, MCV 89.4, platelet 231 with left shift, BMP with chloride 108 otherwise unremarkable, plain film of the left hand with soft tissue swelling along the dorsum of the hand with no demonstrated acute fracture. In the ED patient ministered Unasyn 3 g IV x 1, morphine 4 mg IV x 1 as well as Zofran 4 mg IV x 1. ED discussed case with plastic surgeon Dr. Wing with plan for OR in the afternoon to which patient and were amenable. [facility] Medical History (Updated 01/24/24 @ 10:[address] Gerri Robison MD) Obesity Anxiety and depression Home Medications ?Medication ?Instructions ?Recorded ?Last Taken ?Type NK 01/24/24 Unknown History Allergy/AdvReac Type Severity Reaction Status Date / Time No Known Allergies Allergy Verified 01/24/24 08:58 Family History Mother Heart disease Hypertension Grandmother Diabetes Heart disease Grandfather No problems noted. Father Fatty liver disease, nonalcoholic Surgical History History of dental surgery H/O abdominoplasty S/P gastric bypass Social History (Updated 01/24/24 @ 10:[address] 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 Vital Signs Vital Signs Vital Signs: 01/24/24 08:58 01/24/24 09:01 01/24/24 10:01 Temperature 98.4 F 98.4 F 98.3 F Temperature Source Temporal Oral Oral Pulse Rate 107 H 107 H 102 H Respiratory Rate 16 16 16 Blood Pressure 143/79 H 143/79 H 127/72 H Blood Pressure Mean 100 100 90 Pulse Ox 97 97 97 Oxygen Delivery Method Room Air Room Air Room Air Weight Weight: 235 lb Body Mass Index (BMI) 36.8 Results Lab / Micro Data 01/24/24 09:25 01/24/24 09:25 Labs: Laboratory Results - last 24 hr 01/24/24 09:25: WBC 11.5 H, RBC 4.26, Hgb 12.7, Hct 38.1, MCV 89.4, MCH 29.8, MCHC 33.3, RDW Std Deviation 44.5 H, RDW Coeff of Becky 13.8, Plt Count 231, MPV 11.8, Immature Gran % (Auto) 0.400, Neut % (Auto) 77.4 H, Lymph % (Auto) 13.6 L, [place] % (Auto) 7.7, Eos % (Auto) 0.3, Baso % (Auto) 0.6, Absolute Neuts (auto) 8.9 H, Absolute Lymphs (auto) 1.56, Nucleated RBC % 0, Sodium 139, Potassium 3.5, Chloride 108 H, Carbon Dioxide 27.0, Anion Gap 4 L, BUN 10, Creatinine 0.60, Estim Creat Clear Calc 170.71, Est GFR (MDRD) Af Amer 149, Est GFR (MDRD) Non-Af 123, BUN/Creatinine Ratio 16.6, Glucose 95, Calcium 8.9 Imaging Radiology Impression Hand X-Ray 01/24/24 09:40 IMPRESSION: Soft tissue swelling along the dorsum of the hand. No demonstrated acute fracture. Electronically Signed: Mihai Buckley MD at 9:57 EDT , Assessment & Plan Assessment/Plan (1) Cat bite of left hand with infection: PLAN: Plan The patient is a 33 y/o F noted to be [id number] w/ PMHx: Obesity s/p prior gastric bypass and abdominoplasty, Anxiety and Depression who presents to the [facility] ED on 01/24/2024 with cat bite to the left the day prior, worsening in appearance with redness, edema, pain, difficulty bending her fingers prompting ED evaluation. #1. Left upper extremity infected cat bite, cellulitis with streaking and high suspicion forming abscess: Will admit to [facility], maintain on IV Unasyn, will order wound Cx as well as wound MRSA PCR to be thorough, continue affected extremity elevation above heart when seated and in bed, monitor erythema outline with VS checks, ESR and CRP baseline will be obtained, continue consultation with plastic surgeon Dr. Wing with planned ORIF this afternoon, maintain n.p.o. status in the interim, IV fluids, as needed pain and antiemetic regimen, will also involve wound RN. #2. Anxiety and depression: Noted history, per list has failed outpatient Celexa and Wellbutrin and previously had been reportedly on Effexor as well as nightly trazodone given insomnia but it appears she is not on this at the moment but clarified to be cautious. #3. Obesity: Weight loss and lifestyle changes encouraged, status post previous back gastric bypass with abdominoplasty. #4. DVT prophylaxis: SCDs, hold chemoprophylaxis given planned operative intervention. Charges/Coding Visit Charges Inpatient E&M: 26352 Init Hosp L3
--- NOTE | 2024-01-24 10:50 | ED.RN ---
surgery called. Patient will be going to surgery around 1pm. They will be here around 1145 to get the patient
--- NOTE | 2024-01-24 11:29 | EX.PCM.CON.S ---
Assessment & Plan Assessment/Plan (1) Cat bite of left hand with infection: (2) Septic joint of left hand: PLAN: I am concerned about the left hand, particularly the left long finger metacarpophalangeal joint. I believe this is a septic joint given her exam (pain with axial loading), and given the history of where she said the cat bit her. It would be quite dangerous not to perform emergent surgery today to wash this out. We will take her immediately to surgery (she has been n.p.o.). Patient is okay with this plan. I will also unroofed the other scabs from the cat bite and leave everything open for Dial soap soaks on the floor. Patient understands the plan for multiple incisions for the I&D as well as washout of the joint. She understands the risks of damage to surrounding structures including the extensor tendon mechanism. She understands that she still may develop a chronic infection such as osteomyelitis of the hand but that we are performing the surgery to prevent this from happening as best as possible. HPI Consult Data Date of Consult: 01/24/24 HPI Narrative HPI Narrative: EYAD ROCHA is a [id number] 33-year-old female who presents left hand cat bite infection. Bit by cat yesterday and her hand swelled up today. She reports that the cat bit her near her middle finger metacarpal phalangeal joint and she feels like it went into the joint. Today in the emergency department she is tachycardic to 107 with white blood cell count of 11.5. She is reporting sharp severe pain in the left upper extremity worsened by movement and improved with rest and elevation. Of note she has a history of gastric bypass and panniculectomy. No history of clotting or bleeding problems. [facility] Medical History Obesity Anxiety and depression Home Medications ?Medication ?Instructions ?Recorded ?Last Taken ?Type NK 01/24/24 Unknown History Allergy/AdvReac Type Severity Reaction Status Date / Time No Known Allergies Allergy Verified 01/24/24 08:58 Family History Mother Heart disease Hypertension Grandmother Diabetes Heart disease Grandfather No problems noted. 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 Multiple puncture wounds on the dorsum of her hand and on the first webspace dorsum from the cat bites that have scabbed over. Pain with axial loading of the metacarpophalangeal joint of the long finger. No pain with axial loading of any other joints in the hand or wrist. The ulnar side of the index finger at the PIP joint has a pustule from a bite, but there is no pain in the joint with axial loading or range of motion. There is no pain on the volar hand except for over the long finger A1 willam (as palpation in this location puts pressure on the left long finger MCP joint, which is hot swollen and tender). Unable to make a fist secondary to the swelling on the dorsum of the hand. She is able to bend and extend all joints of the hand however. Const alert and oriented x3 Lab / Micro Data 01/24/24 09:25 01/24/24 09:25 Labs: Laboratory Results - last 24 hr 01/24/24 09:25: WBC 11.5 H, RBC 4.26, Hgb 12.7, Hct 38.1, MCV 89.4, MCH 29.8, MCHC 33.3, RDW Std Deviation 44.5 H, RDW Coeff of Becky 13.8, Plt Count 231, MPV 11.8, Immature Gran % (Auto) 0.400, Neut % (Auto) 77.4 H, Lymph % (Auto) 13.6 L, [place] % (Auto) 7.7, Eos % (Auto) 0.3, Baso % (Auto) 0.6, Absolute Neuts (auto) 8.9 H, Absolute Lymphs (auto) 1.56, Nucleated RBC % 0, Sodium 139, Potassium 3.5, Chloride 108 H, Carbon Dioxide 27.0, Anion Gap 4 L, BUN 10, Creatinine 0.60, Estim Creat Clear Calc 170.71, Est GFR (MDRD) Af Amer 149, Est GFR (MDRD) Non-Af 123, BUN/Creatinine Ratio 16.6, Glucose 95, Calcium 8.9, C-React Prot Ext Range 24.90 H Imaging Radiology Impression Hand X-Ray 01/24/24 09:40 IMPRESSION: Soft tissue swelling along the dorsum of the hand. No demonstrated acute fracture. Electronically Signed: Mihai Buckley MD at 9:57 EDT , I reviewed the x-ray myself. I did not see any foreign body or any fractures. Charges/Coding Visit Charges Office Visits / Consults: 27636 OP Consult L5 (with 57 modifier (decision to perform surgery today) )
[2024-01-24 11:30] LABS: Erythrocyte Sedimentation Rate 12 mm/hr (0-30)
[2024-01-24] MEDS: Lactated Ringers 1,000 ML 15 ML IV (12:03)
[2024-01-24] MEDS: Lidocaine 1% /Epi 1:100 (20ml) 20 ML Vial (12:40)
--- NOTE | 2024-01-24 12:46 | PRE.ANES_ITS ---
ASA Classification* ASA Classification ASA Classification: 2 and E Assessment & Plan Anesthesia* Anesthesia Assessment Anesthesia Assessment: Discussed sedation and/or anesthesia options, risks, benefits, and alternatives with patient/parents/legal guardian/POA. Questions invited. The patient/parents/legal guardian/POA seems to understand and agrees to proceed with anesthesia plan. Reviewed the physical assessment, medical history, allergy history and patient home medications list prior to surgery/procedure/anesthetic and documented any changes. Performed airway and anesthesia risk assessments. Anesthesia Type Anesthesia Type: General Anesthesia Focused Assessment* Temperature: 98.3 F Pulse Rate: 80 Blood Pressure: 151/75 Respiratory Rate: 16 Pulse Ox: 100 Airway Assessment Mouth opens: >3 cm Mallampati Score: II Focused Labs Anesthesia Preop lab: CBC WBC 11.5 K/mm3 (4.4-11.0) H 01/24/24 09:25 RBC 4.26 M/mm3 (4.2-5.4) 01/24/24 09:25 Hgb 12.7 g/dL (12.0-15.0) 01/24/24 09:25 Hct 38.1 % (37-47) 01/24/24 09:25 Plt Count 231 K/mm3 (150-450) 01/24/24 09:25 CHEMISTRY Potassium 3.5 mmol/L (3.5-5.1) 01/24/24 09:25 Sodium 139 mmol/L (136-145) 01/24/24 09:25 Magnesium 2.3 mg/dL (1.6-2.6) 08/03/20 13:44 BUN 10 mg/dL (7-18) 01/24/24 09:25 Creatinine 0.60 mg/dL (0.55-1.02) 01/24/24 09:25 Glucose 95 mg/dL (74-106) 01/24/24 09:25 TSH 0.91 uIU/mL (0.358-3.74) 08/02/23 09:46 COAG PT 12.9 SECONDS (11.7-14.9) 01/27/15 19:50 Pre-Assessment Diagnosis/Proposed Procedure Planned Operative Procedure(s): I&D Hand, middle finger Anesthesia History Anesthesia History - 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 When Was Last Pacemaker Check QUESTION #4 FULL TEXT: You/Your Family Experience fever (hyperthermia) with Anesthesia Last Oral Intake Last Oral intake: Last Oral Intake NPO since 01:00 01/24/24 11:01 Meds taken in AM with sips of water? Meds patient instructed to take am of surgery PONV PONV - software configuration analyst: PONV - software configuration analyst Female HX of Motion Sickness HX of N/V After Surgery Non-Smoker Duration of Surgery greater than 60 minutes Number of Risk Factors PONV Score Height & Weight Height & Weight: Anesthesia: Height & Weight Height 5 ft 7 in 01/24/24 11:01 Weight: 106.594 kg 01/24/24 11:01 Body Mass Index (BMI) 36.8 01/24/24 11:01 Respiratory Assessment Respiratory Assessment - software configuration analyst: Respiratory Tract Infection Hx - software configuration analyst Hx Respiratory Tract Infection No 01/24/24 11:01 STOP Sleep Apnea STOP Sleep Apnea - software configuration analyst: STOP Sleep Apnea - software configuration analyst Hx Hypertension No 01/24/24 11:01 Hx Sleep Apnea No 01/24/24 11:01 CPAP BIPAP Do you snore loudly (louder No 01/24/24 11:01 than talking or can be heard Do you often feel tired/ No 01/24/24 11:01 fatigued/ sleepy during daytime? Has anyone observed you stop No 01/24/24 11:01 breathing during sleep? STOP Results Negative 01/24/24 11:01 QUESTION #5 FULL TEXT : Do you snore loudly (louder than talking or can be heard through closed doors)? 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 Specify any problems Hx of Preganancy in last 3 Months Nurse Filling Out Transfusion & Questions: Date: Time: Patient unable to answer at this time (ie. confused, unrespo /Reproduction History /Reproductive History - software configuration analyst: /Reproductive Hx- software configuration analyst Hx Now No 01/24/24 11:01 Gestational Age (in weeks): EDC: Hx Hx Para Hx Section SAB No 01/24/24 08:58 Active Medications Active Medications: Current Medications Generic Name Dose Route Start Last Admin Trade Name Freq PRN Reason Stop Dose Admin Lactated Ringer's 1,000 mls @ 15 mls/hr 01/24/24 12:00 01/24/24 12:03 IV 15 mls/hr .Q48H JANET Administration PFSH Medical History Obesity Anxiety and depression Home Medications ?Medication ?Instructions ?Recorded ?Last Taken ?Type NK 01/24/24 Unknown History Allergy/AdvReac Type Severity Reaction Status Date / Time No Known Allergies Allergy Verified 01/24/24 08:58 Family History Mother Heart disease Hypertension Grandmother Diabetes Heart disease Grandfather No problems noted. 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
--- NOTE | 2024-01-24 13:17 | NURSING ---
pt refused preg test preop, ok per dr merino.
--- NOTE | 2024-01-24 14:45 | PCM.POST.ANE ---
Anesthesia: Postop Eval I Current Vital Signs Temperature: 99.2 F Pulse Rate: 105 Blood Pressure: 141/97 Respiratory Rate: 20 Pulse Ox: 100 Oxygen Delivery Method: Room Air Assessment Airway patent: Yes Spontaneous unlabored respirations: Yes Mental status: Awake nausea: No Vomiting: No Anesthesia Complication: No Fluid Hydration Crystalloid volume administer (ml): 1,000 Total IV fluid infused: 1,000 Progress Note Anesthesia document: Postop Eval 1 completed: Yes
--- NOTE | 2024-01-24 15:29 | OP.PCM_ITS ---
Operative Report Date of Procedure: 01/24/24 Surgery/Procedure Date: 24 January 2024 Incision/Procedure Start Time: 13:18 Incision Close/Procedure End Time: 14:15 PATIENT: Jayce Linares PRE-OPERATIVE DIAGNOSIS: Cat bite to left hand with septic long finger metacarpal phalangeal joint POST-OPERATIVE DIAGNOSIS: Same PROCEDURE PERFORMED: 1) Incision and drainage left hand first webspace cat bite wound/abscess 2) Incision and drainage, ulnar left index finger cat bite/abscess (CPT 18094, Multiple I&D abscesses hand) 3) Arthrotomy and joint washout, left long finger metacarpal phalangeal joint (MCP) (CPT: 25295) OPERATIVE FINDINGS: * Purulence beneath the skin at the above-noted locations as well as purulence within the left long finger MCP joint * No signs of intra-articular proximal interphalangeal (PIP) joint penetration or infection from the cat bite on the index finger INDICATIONS: Jayce Degroot is a 33-year-old female who presented today to the emergency department after being bit by a cat yesterday on her left hand in several locations. On my exam, I unfortunately diagnosed a left septic long finger MCP joint, requiring emergent trip to the operating room for a joint washout. I talked the patient also about performing incisions to drain the abscesses that were developing in the other cat bite locations. She does not have any history of bleeding or clotting disorders. OPERATIVE DETAILS: Patient was correctly identified in preoperative holding and marked. She was taken back to the operating room where she was administered general anesthesia and prepped and draped in sterile fashion. A tourniquet was applied on the arm and insufflated to 200 mmHg. SCDs were on and activated for induction. I began the procedure by making a curvilinear incision over the left long finger MCP joint. Carefully dissected with tenotomy scissors through the subcutaneous tissue encountering edema fluid and purulence which was cultured. Care was taken to preserve cutaneous nerves. The extensor digitorum communis (EDC) tendon was visualized then at the base of the wound and was split longitudinally with a 15 blade to gain access to the MCP joint. The joint fluid was purulent, and was again cultured. We then washed out the joint with 3 L of normal sali ne. The incision longitudinally over the EDC was not closed. A Parker drain was sutured into the wound bed to stent open the middle portion of the wound, and the proximal portion of the wound was left completely open. The distal part of the wound over the joint and the tendon was closed loosely with an interrupted suture. Attention was then turned to the first webspace which had a small abscess in 2 locations. The 15 blade scalpel was used to enter the abscess cavity as well as a hemostat and these 2 spots were connected and washed out with copious julia normal saline. We then turned our attention to the index finger ulnar side of the PIP joint. A small mid axial incision was made over the abscess and it was washed out with copious julia normal saline. There was no signs of joint penetration and on my exam before surgery she did not have signs of a septic PIP joint, and therefore the decision was made to just leave the subcutaneous portion of this incision open and not further explore the joint. The tourniquet was let down (40-minute tourniquet time) and hemostasis was obtained with 10 cc of 1% lidocaine with 1-200,000 epinephrine and Bovie electrocautery. 0.25% bupivacaine, 10 cc, was also used for a block on the hand for pain control. The wound was dressed and Kerlix and an Jan wrap. All counts were correct at the end of the case. The patient was transferred to the PACU in stable condition. EBL: 10 cc Anesthesia: General And local block IV fluids: 1 L NS Urine output: Not measured POST-OPERATIVE PLAN: Patient will be admitted to medicine for IV antibiotics and infectious disease consultation. I will follow her as well. We need to elevate the left upper extremity (blue arm elevator) and start 3 times per day Dial soap soaks followed by application of dry dressing (no occlusive petroleum gauze please, I want the wounds to drain).
[2024-01-24] MEDS: 0.9% Normal Saline (1000mL) 1,000 ML 100 ML IV (18:09)
[2024-01-24] MEDS: oxyCODONE 5 MG Tablet PO (21:03)
--- NOTE | 2024-01-24 21:04 | NURSING ---
Left hand dressing removed. Placed in warm water with dial soap as ordered.
--- NOTE | 2024-01-24 23:20 | POSTOPAN2_ITS ---
Anesthesia Postop Eval I Sum Postop Eval Completion status Anesthesia document: Postop Eval 1 completed: Yes Anesthesia Postop Eval I Summary Anesthesia Postop Eval I Summary: Anesthesia Postop Eval I: Assessment Summary Airway patent Yes 01/24/24 14:46 PEOPLESOFT TALEO [email or web address] Spontaneous unlabored Yes 01/24/24 14:46 PEOPLESOFT TALEO [email or web address] respirations Mental status Awake 01/24/24 14:46 PEOPLESOFT TALEO [email or web address] nausea No 01/24/24 14:46 PEOPLESOFT TALEO [email or web address] Vomiting No 01/24/24 14:46 PEOPLESOFT TALEO [email or web address] Anesthesia Postop Eval I: Fluid Summary Crystalloid volume administer 1,000 01/24/24 14:46 PEOPLESOFT TALEO [email or web address] (ml) Colloids volume administered ( ml) Blood Product volume administered (ml) Total IV fluid infused 1,000 01/24/24 14:46 PEOPLESOFT TALEO [email or web address] Anesthesia Postop Eval I: Summary Notes Anesthesia Complication No 01/24/24 14:46 PEOPLESOFT TALEO [email or web address] Anesthesia Complication Comment: Post-operative progress note Anesthesia: Postop Eval II Evaluation Mental status: Awake and Calm Pain Level: 4 nausea: No Vomiting: No Complications Anesthesia Complication: No
--- NOTE | 2024-01-24 23:20 | PCM.POSTANE2 ---
Anesthesia Postop Eval I Sum Postop Eval Completion status Anesthesia document: Postop Eval 1 completed: Yes Anesthesia Postop Eval I Summary Anesthesia Postop Eval I Summary: Anesthesia Postop Eval I: Assessment Summary Airway patent Yes 01/24/24 14:46 [email or web address] Spontaneous unlabored Yes 01/24/24 14:46 [email or web address] respirations Mental status Awake 01/24/24 14:46 [email or web address] nausea No 01/24/24 14:46 [email or web address] Vomiting No 01/24/24 14:46 [email or web address] Anesthesia Postop Eval I: Fluid Summary Crystalloid volume administer 1,000 01/24/24 14:46 [email or web address] (ml) Colloids volume administered ( ml) Blood Product volume administered (ml) Total IV fluid infused 1,000 01/24/24 14:46 [email or web address] Anesthesia Postop Eval I: Summary Notes Anesthesia Complication No 01/24/24 14:46 [email or web address] Anesthesia Complication Comment: Post-operative progress note Anesthesia: Postop Eval II Evaluation Mental status: Awake and Calm Pain Level: 4 nausea: No Vomiting: No Complications Anesthesia Complication: No
[2024-01-25] MEDS: Ampicillin/Sulbactam 3 GM in 0.9% Normal Saline (100mL MB+) 100 ML IV ×5 (00:24→23:44)
[2024-01-25 01:30] VITALS: BP 138/84; PULSE 75; RESP 16; TEMP 37.2; O2SAT 100
[2024-01-25] MEDS: Morphine 2 MG/ML Syringe IV (03:24)
[2024-01-25] MEDS: Ondansetron 4 MG/2 ML Vial IV (03:25)
--- NOTE | 2024-01-25 06:09 | NURSING ---
Left hand dressing removed moderate amount of pink drainage. Hand soaked in warm water with dial soap for 20 min. Dressing reapplied followed by loreta wrap. Hand elevated above heart on wedge.
[2024-01-25 06:11] LABS: Absolute Lymphocyte Count 1.63 X10^3/uL (0.83-4.51); Absolute Neutrophil Count 8.7 X10^3/uL (2.0-7.7); Basophil# 0.04 X10^3/uL; Basophil% 0.4 % (0-1); Eosinophil# 0.04 X10^3/uL; Eosinophils% 0.4 % (0-5); Hematocrit 33.2 % (37-47); Hemoglobin 10.6 g/dL (12.0-15.0); Lymphocyte # 1.63 X10^3/ul (0.83-4.51); Lymphocyte % 14.4 % (19-41); Mean Corp Hgb Conc 31.9 g/dL (32-36); Mean Platelet Vol. 12.4 fl (6.2-12.0); Monocyte# 0.89 X10^3/uL; Monocyte% 7.8 % (0-10); NRBC Flagged by Analyzer 0 % (0-5); Neutrophil # 8.69 X10^3/uL (2.7-7.7); Neutrophil % 76.6 % (47-70); Platelet Count 174 K/mm3 (150-450); RBC Distribution Width CV 13.8 % (11.6-14.6); RBC Distribution Width SD 46.1 fl (35.1-43.9); Red Blood Count 3.65 M/mm3 (4.2-5.4); White Blood Count 11.3 K/mm3 (4.4-11.0)
[2024-01-25 06:59] LABS: AST(SGOT) 13 U/L (15-37); Alanine Aminotransfer ALT/SGPT 11 U/L (13-56); Albumin, Serum 3.2 g/dL (3.2-5.0); Alkaline Phosphatase 54 U/L (45-117); Anion Gap 8 (5-15); BUN 6 mg/dL (7-18); BUN/Creat Ratio 12.1 RATIO (10-20); Calcium,Total 8.5 mg/dL (8.5-10.1); Chloride 107 mmol/L (98-107); EST Glomerular Filtration Rate 154 mL/min (>60); Est Glom Filt Rate - Afr Amer 186 mL/min (>60); Globulin 3.2 g/dL (2.2-4.2); Glucose 85 mg/dL (74-106); Potassium 3.5 mmol/L (3.5-5.1); Protein, Total 6.4 g/dL (6.4-8.2); Sodium Level 138 mmol/L (136-145)
--- NOTE | 2024-01-25 07:00 | PCM.PN.HOSP ---
Reason for Visit Reason for Visit: Diagnoses Local infection of the skin and subcutaneous tissue, unspecified (01/24/24) Pyogenic arthritis, unspecified (01/24/24) Open bite of left hand, initial encounter (01/24/24) Bitten by cat, initial encounter (01/24/24) Subjective Subjective Patient overnight with significantly improved pain however primarily with inactivity but notes that when she would move the hand or arm pain would increase to 5 out of 10 in severity, stabbing and aching at the same time. She did have some nausea and some dry heaving but this improved when she received antiemetics when she was being given her narcotics and since then she has had no recurrent episodes. This morning evaluated patient with plastic surgery with dressing taken down and hand soaked with significantly improved appearance with resolution of prior significant erythema, still some edema to the hand but markedly improved as well, drain in place. Patient denies fevers, chills, abdominal pain, chest pain or dyspnea. Objective Data Objective Data Vital Signs: Vital Signs Temp Pulse Resp BP Pulse Ox O2 Del Method O2 Flow Rate 99 F 75 16 138/84 H 100 Room Air 2 01/25/24 01:30 01/25/24 01:30 01/25/24 01:30 01/25/24 01:30 01/25/24 01:30 01/25/24 08:52 01/24/24 17:30 Oxygen Flow Rate (L/min) 2 Oxygen Delivery Method Room Air Weight: 234 lb 15.851 oz Body Mass Index (BMI) 36.8 Intake & Output: Intake and Output for Last 24 Hours 01/23/24 01/24/24 01/25/24 23:59 23:59 23:59 Intake Total 1315.5 / 1315.5 1189 / 1189 Balance 1315.5 / 1315.5 1189 / 1189 Lab / Micro Data 01/25/24 05:28 01/25/24 05:28 Labs: Laboratory Results - last 24 hr 01/24/24 09:25: ESR 12, C-React Prot Ext Range 24.90 H 01/25/24 05:28: WBC 11.3 H, RBC 3.65 L, Hgb 10.6 L, Hct 33.2 L, MCV 91.0, MCH 29.0, MCHC 31.9 L, RDW Std Deviation 46.1 H, RDW Coeff of Becky 13.8, Plt Count 174, MPV 12.4 H, Immature Gran % (Auto) 0.400, Neut % (Auto) 76.6 H, Lymph % (Auto) 14.4 L, [place] % (Auto) 7.8, Eos % (Auto) 0.4, Baso % (Auto) 0.4, Absolute Neuts (auto) 8.7 H, Absolute Lymphs (auto) 1.63, Nucleated RBC % 0, Sodium 138, Potassium 3.5, Chloride 107, Carbon Dioxide 23.0, Anion Gap 8, BUN 6 L, Creatinine 0.50 L, Estim Creat Clear Calc 201.30, Est GFR (MDRD) Af Amer 186, Est GFR (MDRD) Non-Af 154, BUN/Creatinine Ratio 12.1, Glucose 85, Calcium 8.5, Total Bilirubin 0.60, AST 13 L, ALT 11 L, Alkaline Phosphatase 54, Total Protein 6.4, Albumin 3.2, Globulin 3.2, Albumin/Globulin Ratio 1.0 Micro: Microbiology 01/24/24 14:52 Tissue - Arm Left Gram Stain - Final 01/24/24 14:52 Incision/Surgical Site Gram Stain - Final Physical Exam Narrative General: Awake, alert, oriented x 3 and cooperative, seated upright in the MS bed, fatigued but notes pain is significantly improved. Skin: Normal color, normal turgor, no icterus, no cyanosis except notable left hand status post INR with significantly lessened erythema, induration markedly improved as well as far less edematous, still difficulty flexing extending fingers, incision intact with drain overlying with no current drainage noted, pulses intact. HEENT: AT/NC, EOMI, PERRLA, MMM. Lungs: CTA bilaterally, moderate effort, mild decrease BL bases, no rales, ronchi or wheezing. Heart: Regular rate and regular rhythm; no gallop, rub audible. Abdomen: Soft, obese, NTTP, ND, mildly hyperactive BS. Extremities: No cyanosis, no clubbing, see skin. Neurological: Patient awake, alert, oriented as noted, cognitive function intact; pupils equally reactive to light and accommodation, cranial nerves grossly normal, moving all 4 extremities however left upper extremity hand with ongoing pain with movement thus mildly decreased activity left upper extremity, strength improving, mildly globally creased. Psychiatric: Affect appears fatigued, more comfortable than previous, no acute evidence of depressive or anxiety feelings but does have underlying history. Assessment & Plan Assessment/Plan (1) Cat bite of left hand with infection: PLAN: Plan The patient is a 33 y/o F noted to be [id number] w/ PMHx: Obesity s/p prior gastric bypass and abdominoplasty, Anxiety and Depression who presents to the [facility] ED on 01/24/2024 with cat bite to the left the day prior, worsening in appearance with redness, edema, pain, difficulty bending her fingers prompting ED evaluation. #1. Left upper extremity infected cat bite, cellulitis, abscess, septic joint left index finger: Admitted to [place], maintained on IV Unasyn, pending OR cultures, 01/24/2024 I&D left hand first webspace at the cat bite wound/abscess, I&D ulnar left index finger cat bite/abscess, arthrotomy and joint washout, left long finger metacarpal phalangeal joint with drain left in place per Dr. Wing, repeat evaluation of hand 01/25/24 with significantly improved in appearance, allowance of diet given no plan for return to OR, continue aggressive left upper extremity elevation and wound care/soaks per plastic surgery discretion, pending wound RN, as needed pain and antiemetic regimen. #2. Anxiety and depression: Noted history, per list has failed outpatient Celexa and Wellbutrin and previously had been reportedly on Effexor as well as nightly trazodone given insomnia but it appears she is not on this at the moment but clarified to be cautious. #3. Obesity: Weight loss and lifestyle changes encouraged, status post previous back gastric bypass with abdominoplasty. #4. DVT prophylaxis: SCDs, encourage ambulation. Charges/Coding Visit Charges Inpatient E&M: 10867 Subs Hosp L2
[2024-01-25 08:00] VITALS: BP 113/79; PULSE 54; RESP 18; TEMP 37.1; O2SAT 100
--- NOTE | 2024-01-25 08:14 | PN.SURG_ITS ---
Subjective Subjective Post op day 1 from I&D left hand for cat bite and wash out of the MCP joint. Reports improved pain overall. She's been compliant with Dial Soap Soaks and elevation. Objective Data Objective Data Vital Signs: Vital Signs Temp Pulse Resp BP Pulse Ox O2 Del Method O2 Flow Rate 99 F 75 16 138/84 H 100 Room Air 2 01/25/24 01:30 01/25/24 01:30 01/25/24 01:30 01/25/24 01:30 01/25/24 01:30 01/25/24 01:30 01/24/24 17:30 Oxygen Flow Rate (L/min) 2 Oxygen Delivery Method Room Air Weight: 234 lb 15.851 oz Body Mass Index (BMI) 36.8 Intake & Output: Intake and Output for Last 24 Hours 01/23/24 01/24/24 01/25/24 23:59 23:59 23:59 Intake Total 1315.5 / 1315.5 1189 / 1189 Balance 1315.5 / 1315.5 1189 / 1189 Lab / Micro Data 01/25/24 05:28 01/25/24 05:28 Labs: Laboratory Results - last 24 hr 01/24/24 09:25: WBC 11.5 H, RBC 4.26, Hgb 12.7, Hct 38.1, MCV 89.4, MCH 29.8, MCHC 33.3, RDW Std Deviation 44.5 H, RDW Coeff of Becky 13.8, Plt Count 231, MPV 11.8, Immature Gran % (Auto) 0.400, Neut % (Auto) 77.4 H, Lymph % (Auto) 13.6 L, [place] % (Auto) 7.7, Eos % (Auto) 0.3, Baso % (Auto) 0.6, Absolute Neuts (auto) 8.9 H, Absolute Lymphs (auto) 1.56, Nucleated RBC % 0, ESR 12, Sodium 139, Potassium 3.5, Chloride 108 H, Carbon Dioxide 27.0, Anion Gap 4 L, BUN 10, Creatinine 0.60, Estim Creat Clear Calc 170.71, Est GFR (MDRD) Af Amer 149, Est GFR (MDRD) Non-Af 123, BUN/Creatinine Ratio 16.6, Glucose 95, Calcium 8.9, C- React Prot Ext Range 24.90 H 08/24/24 05:28: WBC 11.3 H, RBC 3.65 L, Hgb 10.6 L, Hct 33.2 L, MCV 91.0, MCH 29.0, MCHC 31.9 L, RDW Std Deviation 46.1 H, RDW Coeff of Becky 13.8, Plt Count 174, MPV 12.4 H, Immature Gran % (Auto) 0.400, Neut % (Auto) 76.6 H, Lymph % (Auto) 14.4 L, [place] % (Auto) 7.8, Eos % (Auto) 0.4, Baso % (Auto) 0.4, Absolute Neuts (auto) 8.7 H, Absolute Lymphs (auto) 1.63, Nucleated RBC % 0, Sodium 138, Potassium 3.5, Chloride 107, Carbon Dioxide 23.0, Anion Gap 8, BUN 6 L, C reatinine 0.50 L, Estim Creat Clear Calc 201.30, Est GFR (MDRD) Af Amer 186, Est GFR (MDRD) Non-Af 154, BUN/Creatinine Ratio 12.1, Glucose 85, Calcium 8.5, Total Bilirubin 0.60, AST 13 L, ALT 11 L, Alkaline Phosphatase 54, Total Protein 6.4, Albumin 3.2, Globulin 3.2, Albumin/Globulin Ratio 1.0 Micro: Microbiology 01/24/24 14:52 Tissue - Arm Left Gram Stain - Final 01/24/24 14:52 Incision/Surgical Site Gram Stain - Final Radiography Diagnostic Testing: Radiology Impression Hand X-Ray 01/24/24 09:40 IMPRESSION: Soft tissue swelling along the dorsum of the hand. No demonstrated acute fracture. Electronically Signed: Mihai Buckley MD at 9:57 EDT Reading Location ID and State: [facility] / [place] , Service support , Physical Exam Narrative Left Upper Extremity: Improved redness/induration, no extension proximally. Less swelling overall. No pain with axial loading of any finger or wrist joints. No pain with palpation on the palm or pain in the palm with FDP excursion with passive DIP joint flexion. No pain over the carpal tunnel. No purulence from incisions Assessment & Plan Assessment/Plan (1) Septic joint of left hand: (2) Cat bite of left hand with infection: PLAN: Much improvement since yesterday. Soaks and elevation seem to be working well. F/u cultures Continue Unasyn OK for diet (no surgery today, no surgery planned for tomorrow either). Continue rest and elevation of LUE. Plastics to continue to follow Charges/Coding Procedures Integumentary [id number]: Other Procedure See Report (No charge post op follow up )
--- NOTE | 2024-01-25 09:27 | CASEMGMT ---
Social Work Pt does not have LW/POA documents, declined further information at this time. CECY Gallardo
[2024-01-25] MEDS: Acetaminophen 325 MG Tablet 650 MG PO ×2 (09:40→21:41)
--- NOTE | 2024-01-25 13:49 | CASEMGMT ---
RN CM Face to Face with patient for initial transition planning/care coordination assessment. RN CM introduced self and role at [facility]. Patient lying in bed, alert and oriented. Patient willing to participate in assessment and is able to answer all questions appropriately. Care providers, pharmacy, and demographics verified. Strata: 1 PCP: None, PCP list provided to patient Specialists: LENNY Wise Preferred Pharmacy: [facility] Insurance: [place] Prescription Benefit: Yes Living Will/HPOA: none LNOK: Living Arrangements: Patient lives with and children in a single story home, 2 steps to enter. Patient is independent at home. Transportation: self, DME/HHC: Patient denies DME in the home. No previous HHC or SNF. Patient wishes to discharge home, denies needs at this time. Patient states he has no further needs or concerns at this time. CM to follow for discharge planning needs that may arise. Disposition Plan: Patient to discharge home with family support and follow-up plans in place. Claritza BLANCO, RN, CM
[2024-01-25 16:00] VITALS: BP 120/70; PULSE 64; RESP 18; TEMP 36.9; O2SAT 100
[2024-01-25 21:36] VITALS: BP 147/82; PULSE 84; RESP 18; TEMP 37.2; O2SAT 98
[2024-01-25] MEDS: oxyCODONE 5 MG Tablet PO (21:41)
[2024-01-26 05:35] VITALS: BP 127/77; PULSE 75; RESP 18; TEMP 37.2; O2SAT 100
[2024-01-26] MEDS: Ampicillin/Sulbactam 3 GM in 0.9% Normal Saline (100mL MB+) 100 ML IV ×3 (05:40→18:11)
[2024-01-26] MEDS: Acetaminophen 325 MG Tablet 650 MG PO ×2 (05:43→10:23)
[2024-01-26] MEDS: oxyCODONE 5 MG Tablet PO (05:44)
[2024-01-26 06:20] LABS: Absolute Lymphocyte Count 1.91 X10^3/uL (0.83-4.51); Absolute Neutrophil Count 4.4 X10^3/uL (2.0-7.7); Basophil# 0.06 X10^3/uL; Basophil% 0.8 % (0-1); Eosinophils% 1.4 % (0-5); Hematocrit 33.3 % (37-47); Hemoglobin 10.6 g/dL (12.0-15.0); Lymphocyte # 1.91 X10^3/ul (0.83-4.51); Lymphocyte % 26.4 % (19-41); Mean Corp Hgb Conc 31.8 g/dL (32-36); Mean Platelet Vol. 12.3 fl (6.2-12.0); Monocyte# 0.76 X10^3/uL; Monocyte% 10.5 % (0-10); NRBC Flagged by Analyzer 0 % (0-5); Neutrophil # 4.38 X10^3/uL (2.7-7.7); Neutrophil % 60.6 % (47-70); Platelet Count 174 K/mm3 (150-450); RBC Distribution Width CV 13.8 % (11.6-14.6); RBC Distribution Width SD 46.2 fl (35.1-43.9); Red Blood Count 3.66 M/mm3 (4.2-5.4); White Blood Count 7.2 K/mm3 (4.4-11.0)
--- NOTE | 2024-01-26 06:29 | PCM.PN.HOSP ---
Reason for Visit Reason for Visit: Diagnoses Local infection of the skin and subcutaneous tissue, unspecified (01/24/24) Pyogenic arthritis, unspecified (01/24/24) Open bite of left hand, initial encounter (01/24/24) Bitten by cat, initial encounter (01/24/24) Subjective Subjective Patient with no acute events overnight per self and per nursing report. She does report occasional nausea but this is improved and no emesis events. She states pain is significantly improved and swelling is lessened as well as resolved erythema able to move her hands more with continued ongoing soaks. Currently reports discomfort more aching 2 out of 10 in severity. Discussed current evaluation/care plan with pending finalization of joint culture with noted gram-negative rods. Patient denies fevers, chills, emesis, abdominal pain, chest pain or dyspnea. Objective Data Objective Data Vital Signs: Vital Signs Temp Pulse Resp BP Pulse Ox O2 Del Method O2 Flow Rate 99 F 75 18 127/77 H 100 Room Air 2 01/26/24 05:35 01/26/24 05:35 01/26/24 05:35 01/26/24 05:35 01/26/24 05:35 01/26/24 05:35 01/24/24 17:30 Oxygen Flow Rate (L/min) 2 Oxygen Delivery Method Room Air Weight: 234 lb 15.851 oz Body Mass Index (BMI) 36.8 Intake & Output: Intake and Output for Last 24 Hours 01/24/24 01/25/24 01/26/24 23:59 23:59 23:59 Intake Total 1315.5 / 1315.5 1413 / 1413 112 / 112 Balance 1315.5 / 1315.5 1413 / 1413 112 / 112 Lab / Micro Data 01/26/24 05:37 01/26/24 05:37 Labs: Laboratory Results - last 24 hr 01/25/24 05:28: Sodium 138, Potassium 3.5, Chloride 107, Carbon Dioxide 23.0, Anion Gap 8, BUN 6 L, Creatinine 0.50 L, Estim Creat Clear Calc 201.30, Est GFR (MDRD) Af Amer 186, Est GFR (MDRD) Non-Af 154, BUN/Creatinine Ratio 12.1, Glucose 85, Calcium 8.5, Total Bilirubin 0.60, AST 13 L, ALT 11 L, Alkaline Phosphatase 54, Total Protein 6.4, Albumin 3.2, Globulin 3.2, Albumin/Globulin Ratio 1.0 01/26/24 05:37: WBC 7.2, RBC 3.66 L, Hgb 10.6 L, Hct 33.3 L, MCV 91.0, MCH 29.0, MCHC 31.8 L, RDW Std Deviation 46.2 H, RDW Coeff of Becky 13.8, Plt Count 174, MPV 12.3 H, Immature Gran % (Auto) 0.300, Neut % (Auto) 60.6, Lymph % (Auto) 26.4, [place] % (Auto) 10.5 H, Eos % (Auto) 1.4, Baso % (Auto) 0.8, Absolute Neuts (auto) 4.4, Absolute Lymphs (auto) 1.91, Nucleated RBC % 0 Micro: Microbiology 01/24/24 14:52 Incision/Surgical Site Gram Stain - Final 01/24/24 14:52 Incision/Surgical Site Wound Culture - Preliminary Gram negative noni 01/24/24 14:52 Tissue - Arm Left Gram Stain - Final Physical Exam Narrative General: Awake, alert, oriented x 3 and cooperative, seated upright in the MS bed, fatigued but notes pain is significantly improved. Skin: Normal color, normal turgor, no icterus, no cyanosis except notable left hand status post I+D dressing in place with no drainage, dressing change 01/26/24 per plastic surgery with noted marked improvement in reduction of erythema, edema, no purulence from incision, drain in place, still some difficulty with flexing and bending the fingers. HEENT: AT/NC, EOMI, PERRLA, MMM. Lungs: CTA bilaterally, moderate effort, mild decrease BL bases, no rales, ronchi or wheezing. Heart: Regular rate and regular rhythm; no gallop, rub audible. Abdomen: Soft, obese, NTTP, ND, normal BS. Extremities: No cyanosis, no clubbing, see skin. Neurological: Patient awake, alert, oriented as noted, cognitive function intact; pupils equally reactive to light and accommodation, cranial nerves grossly normal, moving all 4 extremities however left upper extremity hand some decreased movement secondary to pain but markedly improved since day prior, strength mildly globally decreased. Psychiatric: Affect appears interactive, notes feeling improved, no acute evidence of depressive or anxiety feelings but does have underlying history. Assessment & Plan Assessment/Plan (1) Cat bite of left hand with infection: PLAN: Plan The patient is a 33 y/o F noted to be [id number] w/ PMHx: Obesity s/p prior gastric bypass and abdominoplasty, Anxiety and Depression who presents to the [facility] ED on 01/24/2024 with cat bite to the left the day prior, worsening in appearance with redness, edema, pain, difficulty bending her fingers prompting ED evaluation. #1. Left upper extremity infected cat bite, cellulitis, abscess, septic joint left index finger: Admitted to [place], maintained on IV Unasyn, 01/24/2024 I&D left hand first webspace at the cat bite wound/abscess, I&D ulnar left index finger cat bite/abscess, arthrotomy and joint washout, left long finger metacarpal phalangeal joint with drain left in place per Dr. Wing, repeat evaluation of hand 01/25/24 with significantly improved appearance, continued aggressive left upper extremity elevation and wound care/soaks per plastic surgery discretion, pending wound RN evaluation, as needed pain and antiemetic regimen. 01/24/24 Cx w/ GNR. Per plastic surgery evaluation 01/26/24 likely plan for drain removal 01/27/2024. Pending ID evaluation 01/27/24. #2. Normocytic anemia, new and chronicity: Admission hemoglobin 12.7, repeat 01/25/24 hemoglobin 10.6--> 01/26/24 hemoglobin 10.6, baseline hemoglobins prior had been low range since 2018 primarily 12-13, most recently prior to current presentation 08/03/20 hemoglobin 12.9, will obtain iron panel, ferritin, vitamin B12 and folic acid level. #3. Anxiety and depression: Noted history, per list has failed outpatient Celexa and Wellbutrin and previously had been reportedly on Effexor as well as nightly trazodone given insomnia but it appears she is not on this at the moment but clarified to be cautious. #4. Obesity: Weight loss and lifestyle changes encouraged, status post previous back gastric bypass with abdominoplasty. #5. DVT prophylaxis: SCDs, encourage ambulation. Charges/Coding Visit Charges Inpatient E&M: 64589 Subs Hosp L2
[2024-01-26 07:03] LABS: ALB/GLOB Ratio 0.9 RATIO (0.9-2.4); AST(SGOT) 10 U/L (15-37); Alanine Aminotransfer ALT/SGPT 14 U/L (13-56); Albumin, Serum 3.1 g/dL (3.2-5.0); Alkaline Phosphatase 46 U/L (45-117); Anion Gap 6 (5-15); BUN 8 mg/dL (7-18); BUN/Creat Ratio 16.3 RATIO (10-20); Calcium,Total 8.9 mg/dL (8.5-10.1); Chloride 108 mmol/L (98-107); Creatinine, Serum 0.49 mg/dL (0.55-1.02); EST Glomerular Filtration Rate 155 mL/min (>60); Est Glom Filt Rate - Afr Amer 188 mL/min (>60); Estimated Creatinine Clearance 205.41 ml/min; Globulin 3.5 g/dL (2.2-4.2); Glucose 84 mg/dL (74-106); Potassium 3.5 mmol/L (3.5-5.1); Protein, Total 6.6 g/dL (6.4-8.2); Sodium Level 139 mmol/L (136-145)
[2024-01-26 08:09] VITALS: O2SAT 95
--- NOTE | 2024-01-26 09:37 | PCM.PN.BLA ---
Progress Note Doing well this morning. Reports better ROM on her hand. Pain controlled. Physical Exam Narrative RUE: Swelling improved. No purulence from the incisions. Redness is dissipating. No palpable fluid collections. No pain in any joints with axial loading and no pain in the palm/with flexor tendon excusion. Assessment & Plan Assessment/Plan (1) Septic joint of left hand: (2) Cat bite of left hand with infection: PLAN: Plan Continue TID Dial Soap soaks. Agree with antibiotics (Unasyn) for Pasteurrella spp (isolated from the cultures) Continue rest and elevation PSU to continue to follow. No plans for further surgery. Drain likely out tomorrow Procedures Integumentary [id number]: Other Procedure See Report (no charge post op )
[2024-01-26 10:09] VITALS: BP 121/71; PULSE 82; RESP 16; TEMP 37.1; O2SAT 98
[2024-01-26] MEDS: Ondansetron 4 MG/2 ML Vial IV (15:47)
[2024-01-26 18:16] VITALS: BP 134/64; PULSE 78; RESP 16; TEMP 36.9; O2SAT 96
[2024-01-27 00:01] VITALS: BP 126/74; PULSE 76; RESP 16; TEMP 36.8; O2SAT 99
[2024-01-27] MEDS: Acetaminophen 325 MG Tablet 650 MG PO ×3 (00:52→21:10)
[2024-01-27] MEDS: oxyCODONE 5 MG Tablet PO (00:53)
[2024-01-27] MEDS: Ampicillin/Sulbactam 3 GM in 0.9% Normal Saline (100mL MB+) 100 ML IV ×2 (00:55→06:59)
[2024-01-27 06:40] VITALS: BP 114/78; PULSE 56; RESP 18; TEMP 36.7; O2SAT 100
[2024-01-27 07:35] LABS: Absolute Lymphocyte Count 2.11 X10^3/uL (0.83-4.51); Absolute Neutrophil Count 3.7 X10^3/uL (2.0-7.7); Basophil# 0.04 X10^3/uL; Basophil% 0.6 % (0-1); Eosinophil# 0.09 X10^3/uL; Eosinophils% 1.4 % (0-5); Hematocrit 38.4 % (37-47); Hemoglobin 12.1 g/dL (12.0-15.0); Lymphocyte # 2.11 X10^3/ul (0.83-4.51); Lymphocyte % 32.2 % (19-41); Mean Corp Hgb Conc 31.5 g/dL (32-36); Mean Corpuscular Hgb 29.4 pg (27.0-32.0); Mean Corpuscular Volume 93.2 fL (81-99); Mean Platelet Vol. 12.1 fl (6.2-12.0); Monocyte# 0.57 X10^3/uL; Monocyte% 8.7 % (0-10); NRBC Flagged by Analyzer 0 % (0-5); Neutrophil # 3.71 X10^3/uL (2.7-7.7); Neutrophil % 56.6 % (47-70); Platelet Count 195 K/mm3 (150-450); RBC Distribution Width CV 13.6 % (11.6-14.6); Red Blood Count 4.12 M/mm3 (4.2-5.4); White Blood Count 6.6 K/mm3 (4.4-11.0)
--- NOTE | 2024-01-27 08:52 | PCM.PN.BLA ---
Progress Note Doing well Pain continues to improve. No pain in the palm or in the joints. Tolerating antibiotics. Physical Exam Narrative RUE: Swelling improved. No purulence from the incisions. Redness is dissipating. No palpable fluid collections. No pain in any joints with axial loading and no pain in the palm. Drain removed without issue. Assessment & Plan Assessment/Plan (1) Septic joint of left hand: (2) Cat bite of left hand with infection: PLAN: Drain removed on rounds today Discussed with IM team and OK for transition to oral antibiotics today and likely discharge tomorrow. I will see again tomorrow and then f/u with patient in clinic on Saturday to check progress Agree with Augmentin for + Pasteurella cultures. Continue TID dial soap soaks and dry dressing while in hospital and while at home. Procedures Integumentary [id number]: Other Procedure See Report (No charge post op )
[2024-01-27 08:56] LABS: ALB/GLOB Ratio 0.9 RATIO (0.9-2.4); AST(SGOT) 14 U/L (15-37); Alanine Aminotransfer ALT/SGPT 15 U/L (13-56); Albumin, Serum 3.4 g/dL (3.2-5.0); Alkaline Phosphatase 55 U/L (45-117); Anion Gap 7 (5-15); BUN 8 mg/dL (7-18); BUN/Creat Ratio 14.1 RATIO (10-20); Calcium,Total 9.2 mg/dL (8.5-10.1); Chloride 109 mmol/L (98-107); Creatinine, Serum 0.57 mg/dL (0.55-1.02); EST Glomerular Filtration Rate 132 mL/min (>60); Est Glom Filt Rate - Afr Amer 160 mL/min (>60); Estimated Creatinine Clearance 176.58 ml/min; Ferritin 30 ng/mL (8-252); Globulin 3.6 g/dL (2.2-4.2); Glucose 81 mg/dL (74-106); Iron 32 ug/dL (50-170); Iron Binding Capacity,Total 452 ug/dL (250-450); PERCENT IRON SATURATION 7.1 % (15.0-55.0); Potassium 3.7 mmol/L (3.5-5.1); Sodium Level 140 mmol/L (136-145)
[2024-01-27 09:27] LABS: Vitamin B12 300 pg/mL (211-911)
[2024-01-27 10:05] VITALS: BP 122/69; PULSE 64; RESP 20; TEMP 36.8; O2SAT 100
--- NOTE | 2024-01-27 11:43 | PCM.PN.HOSP ---
Subjective Subjective Doing well, no issues overnight. Drain removed from her left hand Objective Data Objective Data Vital Signs: Vital Signs Temp Pulse Resp BP Pulse Ox O2 Del Method O2 Flow Rate 98.2 F 64 20 H 122/69 H 100 Room Air 2 01/27/24 10:05 01/27/24 10:05 01/27/24 10:05 01/27/24 10:05 01/27/24 10:05 01/27/24 10:05 01/24/24 17:30 Oxygen Flow Rate (L/min) 2 Oxygen Delivery Method Room Air Weight: 234 lb 15.851 oz Body Mass Index (BMI) 36.8 Intake & Output: Intake and Output for Last 24 Hours 01/26/24 01/27/24 01/28/24 03:59 03:59 03:59 Intake Total 773 / 773 1997 312 / 312 Balance 773 / 773 1997 312 / 312 Lab / Micro Data 01/27/24 06:35 01/27/24 06:35 Labs: Laboratory Results - last 24 hr 01/27/24 06:35: WBC 6.6, RBC 4.12 L, Hgb 12.1, Hct 38.4, MCV 93.2, MCH 29.4, MCHC 31.5 L, RDW Std Deviation 46.0 H, RDW Coeff of Becky 13.6, Plt Count 195, MPV 12.1 H, Immature Gran % (Auto) 0.500, Neut % (Auto) 56.6, Lymph % (Auto) 32.2, [place] % (Auto) 8.7, Eos % (Auto) 1.4, Baso % (Auto) 0.6, Absolute Neuts (auto) 3.7, Absolute Lymphs (auto) 2.11, Nucleated RBC % 0, Sodium 140, Potassium 3.7, Chloride 109 H, Carbon Dioxide 24.0, Anion Gap 7, BUN 8, Creatinine 0.57, Estim Creat Clear Calc 176.58, Est GFR (MDRD) Af Amer 160, Est GFR (MDRD) Non-Af 132, BUN/Creatinine Ratio 14.1, Glucose 81, Calcium 9.2, Iron 32 L, TIBC 452 H, Iron Saturation 7.1 L, Ferritin 30, Total Bilirubin 0.40, AST 14 L, ALT 15, Alkaline Phosphatase 55, Total Protein 7.0, Albumin 3.4, Globulin 3.6, Albumin/Globulin Ratio 0.9, Vitamin B12 300, Folate 17.30 Micro: Microbiology 01/24/24 14:52 Tissue - Arm Left Gram Stain - Final 01/24/24 14:52 Tissue - Arm Left Wound Culture - Final Pasteurella multocida 01/24/24 14:52 Tissue - Arm Left Anaerobic Culture - Preliminary No growth in 48 hours. 01/24/24 14:52 Incision/Surgical Site Gram Stain - Final 01/24/24 14:52 Incision/Surgical Site Wound Culture - Final Pasteurella multocida 01/24/24 14:52 Incision/Surgical Site Anaerobic Culture - Preliminary Physical Exam Narrative General: Alert, Oriented x3, Cooperative, No apparent distress HEENT: Atraumatic, PERRLA, EOMI, Normocephalic Oral: Moist Mucosa Neck: Supple, No JVD Lungs: Clear to auscultation, Normal air movement, No rhonchi, No wheeze, No rales Cardiovascular: Regular rate, Regular Rhythm, Normal S1, Normal S2, No murmurs Abdomen: Soft, Non Tender, Non-Distended, No Hepato-splenomegaly Extremities: No edema, Capillary Refill Less than 3 Seconds Skin: Incision on her left hand currently being soaked, no significant redness Musculoskeletal: No Tenderness to Palpation of Joints or Extremities Neurological: No focal neurological deficits, Motor Exam 5/5 strength throughout, Sensory exam intact to light touch and pain Psych/Mental Status: Normal Affect, Appropriate Assessment & Plan Assessment/Plan (1) Cat bite of left hand with infection: PLAN: Plan 1. Left hand cat bite with Pasteurella ? This is sensitive to Ancef ? Will transition to p.o. Augmentin ? If there is no worsening in symptoms tomorrow could potentially discharge ? Drains been removed ? Plan to follow-up with plastic surgery as an outpatient ? Appreciate ID assistance 2. Iron deficiency anemia ? Vitamin B12 and folic acid were normal ? Iron is low at 32 with a TIBC of 452 and an iron saturation of 7.1, ferritin is 30 ? Continue with IV Venofer x 1 dose today and then will discharge on p.o. iron DVT: SCDs Charges/Coding Visit Charges Inpatient E&M: 80503 Subs Hosp L2
[2024-01-27 14:48] VITALS: BP 118/82; PULSE 79; RESP 18; TEMP 36.6; O2SAT 100
[2024-01-27] MEDS: Sodium Ferric Gluconat/Sucrose 250 MG in 0.9% Normal Saline (250mL Bag) 250 ML 135 MG IV (15:00)
--- NOTE | 2024-01-27 15:19 | PCM.CONS.GEN ---
Assessment & Plan Assessment/Plan (1) Septic joint of left hand: PLAN: Taken to OR 01/24/[address] Wing for I&D. Surg cx with pasteurella. On unasyn. Plan on home with 3 weeks po augmentin, ID followup as needed. Would check bmp and cbc in one week. Will follow, thank you, d/w Dr. Schaeffer (2) Cat bite of left hand with infection: HPI Consult Data Date of Consult: 01/27/24 HPI Narrative Reason for Consultation: cat bite HPI Narrative: EYAD ROCHA, is a 33 F who presented 01/23 after cat bit her L hand on 01/22. She is R handed. Had progressive L hand pain, redness, swelling, purulent drainage, some chills. Came to ED, admitted on unasyn, taken to OR by Dr. Wing for I&D. Feeling better, hand much improved, no n/v/d. Full ROS performed and neg except as noted above. [facility] Medical History Obesity Anxiety and depression Home Medications ?Medication ?Instructions ?Recorded ?Last Taken ?Type NK 01/24/24 Unknown History Allergy/AdvReac Type Severity Reaction Status Date / Time No Known Allergies Allergy Verified 01/24/24 08:58 Family History Mother Heart disease Hypertension Grandmother Diabetes Heart disease Grandfather No problems noted. 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 01/27/24 06:35 01/27/24 06:35 Labs: Laboratory Results - last 24 hr 01/27/24 06:35: WBC 6.6, RBC 4.12 L, Hgb 12.1, Hct 38.4, MCV 93.2, MCH 29.4, MCHC 31.5 L, RDW Std Deviation 46.0 H, RDW Coeff of Becky 13.6, Plt Count 195, MPV 12.1 H, Immature Gran % (Auto) 0.500, Neut % (Auto) 56.6, Lymph % (Auto) 32.2, [place] % (Auto) 8.7, Eos % (Auto) 1.4, Baso % (Auto) 0.6, Absolute Neuts (auto) 3.7, Absolute Lymphs (auto) 2.11, Nucleated RBC % 0, Sodium 140, Potassium 3.7, Chloride 109 H, Carbon Dioxide 24.0, Anion Gap 7, BUN 8, Creatinine 0.57, Estim Creat Clear Calc 176.58, Est GFR (MDRD) Af Amer 160, Est GFR (MDRD) Non-Af 132, BUN/Creatinine Ratio 14.1, Glucose 81, Calcium 9.2, Iron 32 L, TIBC 452 H, Iron Saturation 7.1 L, Ferritin 30, Total Bilirubin 0.40, AST 14 L, ALT 15, Alkaline Phosphatase 55, Total Protein 7.0, Albumin 3.4, Globulin 3.6, Albumin/Globulin Ratio 0.9, Vitamin B12 300, Folate 17.30 Micro: Microbiology 01/24/24 14:52 Tissue - Arm Left Gram Stain - Final 01/24/24 14:52 Tissue - Arm Left Wound Culture - Final Pasteurella multocida 01/24/24 14:52 Tissue - Arm Left Anaerobic Culture - Preliminary No growth in 48 hours. 01/24/24 14:52 Incision/Surgical Site Gram Stain - Final 01/24/24 14:52 Incision/Surgical Site Wound Culture - Final Pasteurella multocida 01/24/24 14:52 Incision/Surgical Site Anaerobic Culture - Preliminary
[2024-01-27] MEDS: Amox/Clavulanate 875 MG Tablet PO (18:10)
[2024-01-27 21:08] VITALS: BP 130/96; PULSE 71; RESP 16; TEMP 37.1; O2SAT 98
[2024-01-28 03:51] VITALS: BP 115/89; PULSE 71; RESP 16; TEMP 36.8; O2SAT 99
[2024-01-28] MEDS: Acetaminophen 325 MG Tablet 650 MG PO (03:56)
[2024-01-28 07:12] LABS: Absolute Lymphocyte Count 1.88 X10^3/uL (0.83-4.51); Absolute Neutrophil Count 4.6 X10^3/uL (2.0-7.7); Basophil# 0.06 X10^3/uL; Basophil% 0.8 % (0-1); Eosinophil# 0.12 X10^3/uL; Eosinophils% 1.7 % (0-5); Hematocrit 34.2 % (37-47); Hemoglobin 11.2 g/dL (12.0-15.0); Lymphocyte # 1.88 X10^3/ul (0.83-4.51); Lymphocyte % 25.9 % (19-41); Mean Corp Hgb Conc 32.7 g/dL (32-36); Mean Corpuscular Hgb 29.2 pg (27.0-32.0); Mean Corpuscular Volume 89.3 fL (81-99); Monocyte# 0.58 X10^3/uL; NRBC Flagged by Analyzer 0 % (0-5); Neutrophil # 4.62 X10^3/uL (2.7-7.7); Neutrophil % 63.5 % (47-70); Platelet Count 232 K/mm3 (150-450); RBC Distribution Width CV 13.3 % (11.6-14.6); RBC Distribution Width SD 43.7 fl (35.1-43.9); Red Blood Count 3.83 M/mm3 (4.2-5.4); White Blood Count 7.3 K/mm3 (4.4-11.0)
[2024-01-28] MEDS: Amox/Clavulanate 875 MG Tablet PO (08:50)
[2024-01-28 09:00] VITALS: BP 136/79; PULSE 70; RESP 18; TEMP 36.9; O2SAT 98
--- NOTE | 2024-01-28 09:41 | PN.SURG_ITS ---
Subjective Subjective Doing well, no issues overnight. Reports that she feels even better today. Objective Data Objective Data Vital Signs: Vital Signs Temp Pulse Resp BP Pulse Ox O2 Del Method O2 Flow Rate 98.2 F 71 16 115/89 H 99 Room Air 2 01/28/24 03:51 01/28/24 03:51 01/28/24 03:51 01/28/24 03:51 01/28/24 03:51 01/28/24 03:51 01/24/24 17:30 Oxygen Flow Rate (L/min) 2 Oxygen Delivery Method Room Air Weight: 234 lb 15.851 oz Body Mass Index (BMI) 36.8 Intake & Output: Intake and Output for Last 24 Hours 01/26/24 01/27/24 01/28/24 23:59 23:59 23:59 Intake Total 1397 / 224 Balance 1397 Lab / Micro Data 01/28/24 06:25 01/27/24 06:35 Labs: Laboratory Results - last 24 hr 01/28/24 06:25: WBC 7.3, RBC 3.83 L, Hgb 11.2 L, Hct 34.2 L, MCV 89.3, MCH 29.2, MCHC 32.7, RDW Std Deviation 43.7, RDW Coeff of Becky 13.3, Plt Count 232, MPV 12.0, Immature Gran % (Auto) 0.100, Neut % (Auto) 63.5, Lymph % (Auto) 25.9, [place] % (Auto) 8.0, Eos % (Auto) 1.7, Baso % (Auto) 0.8, Absolute Neuts (auto) 4.6, Absolute Lymphs (auto) 1.88, Nucleated RBC % 0 Micro: Microbiology 01/24/24 14:52 Tissue - Arm Left Gram Stain - Final 01/24/24 14:52 Tissue - Arm Left Wound Culture - Final Pasteurella multocida 01/24/24 14:52 Tissue - Arm Left Anaerobic Culture - Preliminary No growth in 48 hours. 01/24/24 14:52 Incision/Surgical Site Gram Stain - Final 01/24/24 14:52 Incision/Surgical Site Wound Culture - Final Pasteurella multocida 01/24/24 14:52 Incision/Surgical Site Anaerobic Culture - Preliminary Physical Exam Narrative RUE: Swelling improved. No purulence from the incisions. Redness is dissipating. No palpable fluid collections. No pain in any joints with axial loading and no pain in the palm. Sutures in place but proximal portion of the incision is still open. Assessment & Plan Assessment/Plan (1) Septic joint of left hand: PLAN: Much better. She grew Pasteurella from the long finger MCP joint culture and from the soft tissue cultures. Currently on Augmentin and improving. Continue TID Soaks with dry dressing at home. F/u on Saturday in our clinic (2) Cellulitis: Charges/Coding Procedures Integumentary [id number]: Other Procedure See Report (no charge post op )
--- NOTE | 2024-01-28 10:04 | PCM.PN.ID ---
Physical Exam Narrative Feeling better, hand much improved, doing soak this AM, no fever, no n/v/d. Const alert and no apparent distress General Appearance: cooperative Resp normal air movement and clear to auscultation bilaterally Cardio regular rate and regular rhythm Skin Skin Narrative: L hand mild swelling, minimal redness, no drainage ID ID: Route of nutrition/ use of supplements: [] Nutritional Intake: [] IV Site: [] Sotelo Catheter: [] Assessment & Plan Assessment/Plan (1) Septic joint of left hand: PLAN: Taken to OR 01/24/[address] Wing for I&D. Surg cx with pasteurella. Ok for home with 3 weeks po augmentin, ID followup as needed. Would check bmp and cbc in one week. Will follow (2) Cat bite of left hand with infection:
[2024-01-28 10:52] LABS: ALB/GLOB Ratio 0.9 RATIO (0.9-2.4); AST(SGOT) 15 U/L (15-37); Alanine Aminotransfer ALT/SGPT 20 U/L (13-56); Alkaline Phosphatase 49 U/L (45-117); Anion Gap 8 (5-15); BUN 9 mg/dL (7-18); BUN/Creat Ratio 17.6 RATIO (10-20); Chloride 107 mmol/L (98-107); Creatinine, Serum 0.51 mg/dL (0.55-1.02); EST Glomerular Filtration Rate 149 mL/min (>60); Est Glom Filt Rate - Afr Amer 180 mL/min (>60); Estimated Creatinine Clearance 197.35 ml/min; Globulin 3.5 g/dL (2.2-4.2); Glucose 86 mg/dL (74-106); Potassium 3.8 mmol/L (3.5-5.1); Protein, Total 6.5 g/dL (6.4-8.2); Sodium Level 141 mmol/L (136-145)
--- NOTE | 2024-01-28 11:43 | DCINST_ITS ---
Discharge Instructions Diet Discharge Diet: No restrictions Activity Discharge Activity: Return to Normal Activity Dressing / Incision Call your doctor if you observe: Fever of 101 or Higher, Shortness of breath, Dizziness, Fainting spells, Swelling in the ankles, Chest pain and Increased palpitations (irregular heartbeat) Follow Up Care Test Results: Test results from this visit will be discussed in further detail at your follow- up appointment, if applicable. Discharge Plan Admission Admit Date/Time: 01/24/24 10:16 Attending Provider: Braeden Schaeffer Primary Care Provider: Care Physician,No Primary Consulting Providers: Osito Wing; Osito Frederick; Gerri Robison Instructions Additional Instructions / Restrictions: Follow-up with your primary care doctor in 3 to 5 days to obtain lab work including a BMP and a CBC to monitor your renal function Discharge Orders/Prescriptions Prescriptions: New amoxicillin-pot clavulanate 875-125 mg Tablet 1 tab PO BIDCM 21 Days Qty: 42 0RF ferrous gluconate 324 mg (37.5 mg iron) Tablet 324 mg PO LUNCH 30 Days Qty: 30 0RF Referrals / Follow Up: Osito Wing MD [Med Staff - Active Staff] - 01/31/24 Care Physician,No Primary [Primary Care Provider] - Disposition Disposition (needs filled in before D/C Order can be placed): Home, Self Care
--- NOTE | 2024-01-28 11:45 | WOUNDNOTE ---
Pt states she had recently soaked hand. Dr Wing had been on to see patient and plans to send patient home today. dressing is D&I.
--- NOTE | 2024-01-28 11:59 | CASEMGMT ---
BETSY CM into pt room, pt states she feels comfortable with the wound soaks. Pt denies any homegoing needs at this time.
[2024-01-28 12:33] VITALS: BP 122/89; PULSE 66; RESP 18; TEMP 36.9; O2SAT 98
--- NOTE | 2024-01-28 17:35 | DS.PCM_ITS ---
Providers Date of Admission: 01/24/24 Primary Care Physician: Zeenat Primary Care Phys Consultations 01/24/24 17:50 Consult: Onc/Wound/store coordinator Routine Comment: Reason for Consult:: Infected cat bite, abscess, OR planned Consult: Plastic Surgery Routine Consulting Provider: Osito Wing Reason for Consult: infected cat bite, forming abscess ? EMERGENT Consult: No MD Notified: Yes Date Notified: 01/24/24 Time Notified: 10:49 Method of Notification: ED Physician Initiated 01/26/24 10:29 Consult: Infectious Disease Routine Consulting Provider: Osito Frederick Reason for Consult: Cat bite, infected, septic joint EMERGENT Consult: No MD Notified: Yes Date Notified: 01/26/24 Time Notified: 06:23 Method of Notification: Text Reason For Visit: JOINT WASH OUT Diagnosis Discharge Diagnosis (1) Septic joint of left hand: Status: Acute Code(s): M00.9 - Pyogenic arthritis, unspecified (2) Cat bite of left hand with infection: Status: Acute Code(s): S61.452A - Open bite of left hand, initial encounter; L08.9 - Local infection of the skin and subcutaneous tissue, unspecified; W55.01XA - Bitten by cat, initial encounter Medications at Discharge Home Medications amoxicillin 875 mg-potassium clavulanate 125 mg tablet 1 tab PO BIDCM 21 days #42 tabs 01/28/24 ferrous gluconate 324 mg (37.5 mg iron) tablet 324 mg PO LUNCH 30 days #30 tabs 01/28/24 Hospital Course Operations - (1) Incision and drainage left hand first webspace cat bite wound/abscess 2) Incision and drainage, ulnar left index finger cat bite/abscess (CPT 56172, Multiple I&D abscesses hand) 3) Arthrotomy and joint washout, left long finger metacarpal phalangeal joint (MCP) (CPT: 33610) ) Procedures None Summary of Care Provided Minutes Spent on Discharge: 33 Hospital Course: Per HPI: The patient is a 33 y/o F noted to be [id number] w/ PMHx: Obesity s/p prior gastric bypass and abdominoplasty, Anxiety and Depression who presents to the [facility] ED on 01/24/2024 with 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 She denies any onset of fevers or chills. Workup in the ED included T98.4, heart 107, BP 143/79, respiratory rate 16, 97% room air with most recent repeat vitals T90.3 Oral, heart rate 102, BP 137/72, respiratory 16, 97% room air, CBC with WBC 11.5, hemoglobin 12.7, MCV 89.4, platelet 231 with left shift, BMP with chloride 108 otherwise unremarkable, plain film of the left hand with soft tissue swelling along the dorsum of the hand with no demonstrated acute fracture. In the ED patient ministered Unasyn 3 g IV x 1, morphine 4 mg IV x 1 as well as Zofran 4 mg IV x 1. ED discussed case with plastic surgeon Dr. Wing with plan for OR in the afternoon to which patient and were amenable. Hospital Course: 1. Left hand cat bite with a Pasteurella cellulitis and septic joint?[age]-year-old female was bit by cat presented to the hospital underwent an I&D with washout and temporary drain placed. She was placed on broad-spectrum antibiotics and cultures demonstrated Pasteurella was transitioned to Unasyn. She was transition to oral Augmentin for 1 day prior to discharge to make sure that she did not have any worsening of her symptoms. Infectious disease was consulted and recommended 3 weeks of oral antibiotics on discharge. I discussed the case with plastic surgery as well who felt that she was stable for discharge home with outpatient follow-up. I discussed with her the plan for discharge today she expressed understanding the risk benefits of going home and would like to go home today. 2. Iron deficiency anemia?he was found to have a mild anemia on admission and vitamin B12 and folic acid were normal however iron was 32 with a TIBC of 452 and an iron saturation of 7.1. Ferritin was 30 so she was given a dose of Venofer yesterday and discharged on ferrous sulfate today. I recommend that she follow-up with PCP as an outpatient for monitoring Physical Exam Narrative General: Alert, Oriented x3, Cooperative, No apparent distress HEENT: Atraumatic, PERRLA, EOMI, Normocephalic Oral: Moist Mucosa Neck: Supple, No JVD Lungs: Clear to auscultation, Normal air movement, No rhonchi, No wheeze, No rales Cardiovascular: Regular rate, Regular Rhythm, Normal S1, Normal S2, No murmurs Abdomen: Soft, Non Tender, Non-Distended, No Hepato-splenomegaly Extremities: No edema, Capillary Refill Less than 3 Seconds Skin: Incision on her left hand currently being soaked, no significant redness Musculoskeletal: No Tenderness to Palpation of Joints or Extremities Neurological: No focal neurological deficits, Motor Exam 5/5 strength throughout, Sensory exam intact to light touch and pain Psych/Mental Status: Normal Affect, Appropriate Weight / BMI Weight Weight: 234 lb 15.851 oz Body Mass Index (BMI) 36.8 ABG / Lab / Microbiology Data 01/28/24 06:25 01/28/24 06:25 Laboratory: Laboratory Results - last 24 hr 01/28/24 06:25: WBC 7.3, RBC 3.83 L, Hgb 11.2 L, Hct 34.2 L, MCV 89.3, MCH 29.2, MCHC 32.7, RDW Std Deviation 43.7, RDW Coeff of Becky 13.3, Plt Count 232, MPV 12.0, Immature Gran % (Auto) 0.100, Neut % (Auto) 63.5, Lymph % (Auto) 25.9, Benton % (Auto) 8.0, Eos % (Auto) 1.7, Baso % (Auto) 0.8, Absolute Neuts (auto) 4.6, Absolute Lymphs (auto) 1.88, Nucleated RBC % 0, Sodium 141, Potassium 3.8, Chloride 107, Carbon Dioxide 26.0, Anion Gap 8, BUN 9, Creatinine 0.51 L, Estim Creat Clear Calc 197.35, Est GFR (MDRD) Af Amer 180, Est GFR (MDRD) Non-Af 149, BUN/Creatinine Ratio 17.6, Glucose 86, Calcium 9.0, Total Bilirubin 0.30, AST 15, ALT 20, Alkaline Phosphatase 49, Total Protein 6.5, Albumin 3.0 L, Globulin 3.5, Albumin/Globulin Ratio 0.9 Microbiology: Microbiology 01/24/24 14:52 Incision/Surgical Site Gram Stain - Final 01/24/24 14:52 Incision/Surgical Site Wound Culture - Final Pasteurella multocida 01/24/24 14:52 Incision/Surgical Site Anaerobic Culture - Preliminary Anaerobic cocci Gram negative noni 01/24/24 14:52 Tissue - Arm Left Gram Stain - Final 01/24/24 14:52 Tissue - Arm Left Wound Culture - Final Pasteurella multocida 01/24/24 14:52 Tissue - Arm Left Anaerobic Culture - Preliminary No growth in 48 hours. D/C Instructions Discharge Diet: No restrictions Call your doctor if you observe: Fever of 101 or Higher, Shortness of breath, Dizziness, Fainting spells, Swelling in the ankles, Chest pain and Increased palpitations (irregular heartbeat) Meaningful Use Info Meaningful Use Meaningful Use Diagnoses (Choose all that apply): None applicable Ischemic Stroke Statin Dosing Therapy Reference: STATIN DOSE THERAPY REFERENCE: * Patients > 75 years receive moderate or high dose statin therapy. * Patients 75 years or YOUNGER should receive HIGH intensity statin dose unless contraindicated. You will be required to document reason for non-treatment if statin daily dose does not meet guidelines. HIGH DOSE STATIN THERAPY DAILY Atorvastatin > than or = to 40 mg Rosuvastatin > than or = to 20 mg Amlodipine + Atorvastatin > than or = to 2.5/40 mg Ezetimibe + Simvastatin 10/80 mg Simvastatin 80mg Discharge Plan Admission Admit Date/Time: 01/24/24 10:16 Attending Provider: Braeden Schaeffer Primary Care Provider: Care Physician,No Primary Consulting Providers: Osito Wing; Osito Frederick; Gerri Robison Instructions Additional Instructions / Restrictions: Follow-up with your primary care doctor in 3 to 5 days to obtain lab work including a BMP and a CBC to monitor your renal function Discharge Orders/Prescriptions Prescriptions: New amoxicillin-pot clavulanate 875-125 mg Tablet 1 tab PO BIDCM 21 Days Qty: 42 0RF ferrous gluconate 324 mg (37.5 mg iron) Tablet 324 mg PO LUNCH 30 Days Qty: 30 0RF Referrals / Follow Up: Osito Wing MD [Med Staff - Active Staff] - 01/31/24 Care Physician,No Primary [Primary Care Provider] - Disposition Disposition (needs filled in before D/C Order can be placed): Home, Self Care Charges/Coding Visit Charges Inpatient E&M: 23016 Disch Hosp >30min
== END 2024-01-28 13:12 | disposition home or self-care (01) | DRG 982 ==
LOC: ED 10:44 → SDC 11:56 → ED 13:27 → ACINP 13:31 → MS3 14:45
PROVIDERS: Family Medicine; Admitting Provider Surgery Plastic and Reconstructive Surgery; Emergency Provider Emergency Medicine; Visit Provider Family Medicine
PROC: 0R9 Upper Joints, Drainage (ICD-10-PCS; principal; 2024-01-24 12:50)
DX: S60.572A Other superficial bite of hand of left hand, initial encounter (principal); M00.842 Arthritis due to other bacteria, left hand; A28.0 Pasteurellosis; L03.114 Cellulitis of left upper limb; L02.512 Cutaneous abscess of left hand; F32.A Depression, unspecified; D50.9 Iron deficiency anemia, unspecified; E66.9 Obesity, unspecified; B96.89 Other specified bacterial agents as the cause of diseases classified elsewhere; W55.01XA Bitten by cat, initial encounter; Z68.36 Body mass index [BMI] 36.0-36.9, adult; Z79.899 Other long term (current) drug therapy
CPT/HCPCS: 36415; 73130; 80048; 80053; 82607; 82728; 82746; 83540; 83550; 85025; 85652; 86140; 87070; 87075; 87077; 87102; 87186; 87205; 87206; 99285; J7030; J7050; J7120; A4216; J0295; J2405; J2916

== ENCOUNTER 2024-01-29 16:35 | Emergency (ER) | payer BC, SELFPAY ==
[2024-01-29 16:35] VITALS: BP 139/75; PULSE 80; RESP 19; TEMP 36.2; O2SAT 97; BMI 36.0
[2024-01-29 16:38] VITALS: BP 138/75; PULSE 80; RESP 16; TEMP 36.2; O2SAT 99
--- NOTE | 2024-01-29 17:57 | EDS_ITS ---
HPI History of Present Illness Chief Complaint: Wound Detail of Chief Complaint: Patient presents because of pain, redness, raised area near IV site right a Informant: patient Onset/Context/Timing Onset: Today Context: Sudden Onset Timing: Continuous Quality: Red painful raised area right antecubital fossa Current Severity: Mild Maximum Severity: Moderate Worsened by: Palpation and movement Relieved by: Rest Associated Symptoms Associated Symptoms: None Narrative Narrative: Patient is a 33-year-old [id number] female who presents because of redness, raised area that is painful right antecubital fossa. This is near the IV site. Patient was admitted for infected cat bite. She denies fever, chills night sweats. She denies cardiac respiratory symptoms. She is present on antibiotics. Prior similar symptoms: No Recent Illness/Hospitalization: No PFSH PFSH Medical History Obesity Anxiety and depression Home Medications ?Medication ?Instructions ?Recorded ?Last Taken ?Type amoxicillin 875 mg-potassium 1 tab PO BIDCM 21 days #42 tabs 01/28/24 Unknown Rx clavulanate 125 mg tablet ferrous gluconate 324 mg (37.5 mg 324 mg PO LUNCH 30 days #30 tabs 01/28/24 Unknown Rx iron) tablet Allergy/AdvReac Type Severity Reaction Status Date / Time No Known Allergies Allergy Verified 01/24/24 08:58 Family History Mother Heart disease Hypertension Grandmother Diabetes Heart disease Grandfather No problems noted. 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 ROS ROS ED Constitutional Constitutional ED: Denies chills, fever(s) or subjective Cardiovascular Cardiovascular: Denies chest pain or palpitations Respiratory/Chest Respiratory/Chest: Denies dyspnea or dyspnea on exertion Integumentary Reports rash Hematologic/Lymphatic Hematologic/Lymphatic: Denies easy bleeding or easy bruising EXAM Physical Exam Const Vital Signs: 01/29/24 16:35 01/29/24 16:38 Temperature 97.2 F L 97.2 F L Temperature Source Temporal Tympanic Pulse Rate 80 80 Respiratory Rate 19 H 16 Blood Pressure 139/75 H 138/75 H Blood Pressure Mean 96 96 Pulse Ox 97 99 Oxygen Delivery Method Room Air Room Air Positive well nourished and well developed General Appearance ED: well developed and NAD HEENT Reports moist mucous membranes HEENT Narrative: Head is atraumatic normocephalic. Ears normal. Eyes PERRL and EOMs intact bilaterally General Eye ED: Negative for scleral icterus Neck supple and no JVD Resp normal respiratory effort Cardio regular rate and regular rhythm Extremity Extremity Narrative: Patient has a palpable cord right antecubital fossa proximal of the IV site. There is no induration, lymphangitis or lymphadenopathy. Median, radial and ul aissatou function intact. There is no fluctuance. Neuro oriented x3 and CN's II-XII intact bilaterally Sensorium / Orientation: alert Psych Mood & Affect: anxious Skin Rashes: rashes noted MDM MDM MDM Narrative Medical decision making narrative: Differential diagnosis is cellulitis versus superficial phlebitis versus DVT. History and physical are consistent with superficial phlebitis. Patient was discharged home with appropriate home-going instructions in stable condition. Discharge Plan Triage Chief Complaint: Wound ED Provider: Alistair Kinsey Dx/Rx/DC Orders Clinical Impression: Superficial phlebitis of arm, History of gastric surgery, Cat bite of left hand with infection Instructions: ED Thrombophlebitis, Superficial Prescriptions: No Action amoxicillin-pot clavulanate 875-125 mg Tablet 1 tab PO BIDCM 21 Days Qty: 42 0RF ferrous gluconate 324 mg (37.5 mg iron) Tablet 324 mg PO LUNCH 30 Days Qty: 30 0RF Primary Care Provider: Care Physician,No Primary Referrals: Care Physician,No Primary [Primary Care Provider] - Print Language: Sinhala Disposition Disposition: Home, Self Care
== END 2024-01-29 18:15 | disposition home or self-care (01) ==
LOC: ED 18:13
PROVIDERS: Emergency Provider Emergency Medicine; Visit Provider Emergency Medicine
DX: I80.8 Phlebitis and thrombophlebitis of other sites (principal)
CPT/HCPCS: 99282

== ENCOUNTER 2024-02-06 16:24 | Inpatient (IN) | payer BC, SELFPAY ==
[2024-02-06] VITALS (12 sets, daily range): BP systolic 111–154; BP diastolic 55–94; PULSE 67–112; RESP 16–20; TEMP 36.6–37.3; O2SAT 94–100; BMI 36.2
--- NOTE | 2024-02-06 10:27 | RAD_ITS ---
STUDY: X-RAY - LEFT HAND REASON FOR EXAM: Female, 33 years old. Left hand infection. TECHNIQUE: 4 views of the left hand. COMPARISON: None. FINDINGS: Normal radiocarpal articulation. Normal distal radioulnar joint. Normal visualized carpal bones. Normal carpal articulations. Normal carpometacarpal articulation of the thumb. Normal second through fifth carpometacarpal joints. Normal metacarpi. Normal metacarpophalangeal joint of the thumb. Normal interphalangeal joint of the thumb. Normal proximal and distal phalanges of the thumb. Normal metacarpophalangeal joints of the second through fifth fingers. Normal proximal and distal interphalangeal joints of the second through fifth fingers. Normal phalanges of the second through fifth fingers. The soft tissue structures are unremarkable. RAD/Hand Min 3 Views IMPRESSION: Normal x-ray examination of the hand. Electronically Signed: Mihai Buckley MD at 11:33 EDT ,
--- NOTE | 2024-02-06 11:39 | HP.PCM_ITS ---
HPI - General HPI Narrative EYAD ROCHA, is a 33 F who presents left hand recurrent infection. I saw and examined her in clinic today and there is concern for return of the infection over the left long finger MCP joint of 2 days duration. Reports redness and drainage that started yesterday. She has been taking her antibiotic (Augmentin) as prescribed by the [place] physician. [facility] Medical History (Updated 02/06/24 @ 00:01 by Background Daemdeborah) Obesity Anxiety and depression Home Medications ?Medication ?Instructions ?Recorded ?Last Taken ?Type amoxicillin 875 mg-potassium 1 tab PO BIDCM 21 days #42 tabs 01/28/24 Unknown Rx clavulanate 125 mg tablet ferrous gluconate 324 mg (37.5 mg 324 mg PO LUNCH 30 days #30 tabs 01/28/24 Unknown Rx iron) tablet Allergy/AdvReac Type Severity Reaction Status Date / Time No Known Allergies Allergy Verified 01/31/24 09:26 Family History (Reviewed 01/31/24 @ 09:54 by Rosana Bean PATIENT CARE TECHNICIAN INSTRUCTOR, PATIENT CARE TECHNICIAN INSTRUCTOR-C) Mother Heart disease Hypertension Grandmother Diabetes Heart disease Grandfather No problems noted. 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 Some pain with axial loading, but possibly referred pain to the dorsal soft tissues. Assessment & Plan Assessment/Plan (1) Cat bite of left hand with infection: PLAN: Plan I talked to the patient extensively today in clinic and ordered and Xray (no cortical erosions/signs of osteo on my read). I recommended emergent take back to the OR today for exploration to wash out infection. I'm concerned it may be coming from the joint again. I talked the patient extensively about the risks of surgery, including bleeding, worsening of infection/potential for osteomyelitis, damage to surrounding structures, surgical site dehiscence and wound formation, need for wound care, need for repeat operations, failure to obtain the desired result, DVT/PE, and the risks of anesthesia including . All of their questions were answered, and they agreed to proceed with surgery. I marked her left upper extremity Charges/Coding Procedures Integumentary [id number]: 82013 Global Visit
[2024-02-06 11:44] LABS: Internal QC Validated? YES +Cl - CLEAR BKGD; Pregnancy, Urine Negative Negative; Record Kit Lot#,Urine Preg HCG0000772476
[2024-02-06] MEDS: Lactated Ringers 1,000 ML 15 ML IV ×2 (12:39→17:22)
[2024-02-06] MEDS: Ampicillin/Sulbactam 3 GM in 0.9% Normal Saline (100mL MB+) 100 ML IV ×2 (12:40→23:30)
[2024-02-06] MEDS: 0.9% Normal Saline (1000mL) 1,000 ML 15 ML IV (13:26)
--- NOTE | 2024-02-06 13:28 | PCM.PRE.AN2 ---
ASA Classification* ASA Classification ASA Classification: 2 and E Assessment & Plan Anesthesia* Anesthesia Assessment Anesthesia Assessment: Discussed sedation and/or anesthesia options, risks, benefits, and alternatives with patient/parents/legal guardian/POA. Questions invited. The patient/parents/legal guardian/POA seems to understand and agrees to proceed with anesthesia plan. Reviewed the physical assessment, medical history, allergy history and patient home medications list prior to surgery/procedure/anesthetic and documented any changes. Performed airway and anesthesia risk assessments. Anesthesia Type Anesthesia Type: General (see written pre anesthesia record for full assessment ) Anesthesia Focused Assessment* Temperature: 99.2 F Pulse Rate: 68 Blood Pressure: 125/77 Respiratory Rate: 18 Pulse Ox: 100 Airway Assessment Mouth opens: >3 cm Mallampati Score: II Focused Labs Anesthesia Preop lab: CBC WBC 7.3 K/mm3 (4.4-11.0) 01/28/24 06:25 RBC 3.83 M/mm3 (4.2-5.4) L 01/28/24 06:25 Hgb 11.2 g/dL (12.0-15.0) L 01/28/24 06:25 Hct 34.2 % (37-47) L 01/28/24 06:25 Plt Count 232 K/mm3 (150-450) 01/28/24 06:25 CHEMISTRY Potassium 3.8 mmol/L (3.5-5.1) 01/28/24 06:25 Sodium 141 mmol/L (136-145) 01/28/24 06:25 Magnesium 2.3 mg/dL (1.6-2.6) 08/03/20 13:44 BUN 9 mg/dL (7-18) 01/28/24 06:25 Creatinine 0.51 mg/dL (0.55-1.02) L 01/28/24 06:25 Glucose 86 mg/dL (74-106) 01/28/24 06:25 TSH 0.91 uIU/mL (0.358-3.74) 08/02/23 09:46 COAG PT 12.9 SECONDS (11.7-14.9) 01/27/15 19:50 Urine Test Negative Negative 02/06/24 11:25 Pre-Assessment Diagnosis/Proposed Procedure Planned Operative Procedure(s): hand Anesthesia History Anesthesia History - 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 When Was Last Pacemaker Check QUESTION #4 FULL TEXT: You/Your Family Experience fever (hyperthermia) with Anesthesia Last Oral Intake Last Oral intake: Last Oral Intake NPO since 13:05 02/06/24 12:47 Meds taken in AM with sips of water? Meds patient instructed to take am of surgery PONV PONV - field service supervisor: PONV - field service supervisor Female HX of Motion Sickness HX of N/V After Surgery Non-Smoker Duration of Surgery greater than 60 minutes Number of Risk Factors PONV Score Height & Weight Height & Weight: Anesthesia: Height & Weight Height 5 ft 7 in 02/06/24 12:47 Weight: 105 kg 02/06/24 12:47 Body Mass Index (BMI) 36.2 02/06/24 12:47 Respiratory Assessment Respiratory Assessment - field service supervisor: Respiratory Tract Infection Hx - field service supervisor Hx Respiratory Tract Infection No 01/28/24 10:01 STOP Sleep Apnea STOP Sleep Apnea - field service supervisor: STOP Sleep Apnea - field service supervisor Hx Hypertension No 01/28/24 10:01 Hx Sleep Apnea No 01/28/24 10:01 CPAP BIPAP Do you snore loudly (louder than talking or can be heard Do you often feel tired/ fatigued/ sleepy during daytime? Has anyone observed you stop breathing during sleep? STOP Results QUESTION #5 FULL TEXT : Do you snore loudly (louder than talking or can be heard through closed doors)? 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 Specify any problems Hx of Preganancy in last 3 Months Nurse Filling Out Transfusion & Questions: Date: Time: Patient unable to answer at this time (ie. confused, unrespo /Reproduction History /Reproductive History - field service supervisor: /Reproductive Hx- field service supervisor Hx Now Gestational Age (in weeks): EDC: Hx Hx Para Hx Section SAB No 01/29/24 16:35 Active Medications Active Medications: Current Medications Generic Name Dose Route Start Last Admin Trade Name Freq PRN Reason Stop Dose Admin Ampicillin Sodium/Sulbactam 112 mls @ 150 mls/hr 02/06/24 12:00 02/06/24 12:40 Sodium 3 gm/ Sodium Chloride IV 150 mls/hr Q6 JANET Administration Sodium Chloride 1,000 mls @ 15 mls/hr 02/06/24 13:15 02/06/24 13:26 IV 15 mls/hr .Q48H JANET Administration PFSH Medical History Cellulitis and abscess of hand Obesity Anxiety and depression Home Medications ?Medication ?Instructions ?Recorded ?Last Taken ?Type amoxicillin 875 mg-potassium 1 tab PO BIDCM 21 days #42 tabs 01/28/24 02/06/24 Rx clavulanate 125 mg tablet ferrous gluconate 324 mg (37.5 mg 324 mg PO LUNCH 30 days #30 tabs 01/28/24 02/05/24 Rx iron) tablet Allergy/AdvReac Type Severity Reaction Status Date / Time No Known Allergies Allergy Verified 02/06/24 12:38 Family History Mother Heart disease Hypertension Grandmother Diabetes Heart disease Grandfather No problems noted. 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
[2024-02-06] MEDS: Sodium Citrate/Citric Acid 30 ML UDC PO (13:35)
[2024-02-06] MEDS: Lidocaine 1% /Epi 1:100 (20ml) 20 ML Vial (16:46)
--- NOTE | 2024-02-06 17:07 | PCM.POST.ANE ---
Anesthesia: Postop Eval I Current Vital Signs Temperature: 97.8 F Pulse Rate: 112 Blood Pressure: 146/85 Respiratory Rate: 16 Pulse Ox: 96 Oxygen Delivery Method: Room Air Assessment Airway patent: Yes Spontaneous unlabored respirations: Yes Mental status: Awake and Calm nausea: No Vomiting: No Anesthesia Complication: No Fluid Hydration Crystalloid volume administer (ml): 800 Total IV fluid infused: 800 Progress Note Anesthesia document: Postop Eval 1 completed: Yes
--- NOTE | 2024-02-06 17:37 | PCM.POSTANE2 ---
Anesthesia Postop Eval I Sum Postop Eval Completion status Anesthesia document: Postop Eval 1 completed: Yes Anesthesia Postop Eval I Summary Anesthesia Postop Eval I Summary: Anesthesia Postop Eval I: Assessment Summary Airway patent Yes 02/06/24 17:07 [email or web address] Spontaneous unlabored Yes 02/06/24 17:07 TIMOTHY respirations Mental status Awake,Calm 02/06/24 17:07 HANDBOOK [email or web address] nausea No 02/06/24 17:07 [email or web address] Vomiting No 02/06/24 17:07 TIMOTHY Anesthesia Postop Eval I: Fluid Summary Crystalloid volume administer 800 02/06/24 17:07 TIMOTHY (ml) Colloids volume administered ( ml) Blood Product volume administered (ml) Total IV fluid infused 800 02/06/24 17:07 TIMOTHY Anesthesia Postop Eval I: Summary Notes Anesthesia Complication No 02/06/24 17:07 TIMOTHY Anesthesia Complication Comment: Post-operative progress note Anesthesia: Postop Eval II Evaluation Mental status: Awake Pain Level: 7 nausea: No Vomiting: No
--- NOTE | 2024-02-06 17:42 | PCM.OP.BLANK ---
Operative Report Date of Procedure: 02/06/24 Surgery/Procedure Date: 06 Feb 2024 Incision/Procedure Start Time: 16:26 Incision Close/Procedure End Time: 16:58 (32 minutes) PATIENT: Chasidy Linares SURGEON: Osito Wing MD PRE-OPERATIVE DIAGNOSIS: Left long finger septic metacarpal phalangeal joint POST-OPERATIVE DIAGNOSIS: same PROCEDURE PERFORMED: 1) exploration of hand abscess with repeat arthrotomy and washout of the left long finger metacarpal phalangeal joint (CPT: 45251) OPERATIVE FINDINGS: Recurrence of the septic left long finger (LLF) metacarpal phalangeal joint (MCPJ) INDICATIONS: Patient presented today in clinic with swelling and purulent drainage over the left long finger metacarpophalangeal joint. Last week in clinic she was doing quite well and had no pain and drainage. I was concerned for a septic joint recurrence. I immediately had her get an x-ray and this did not demonstrate any osteomyelitis. She was immediately admitted for IV antibiotics and infectious disease consultation as well as emergent trip to the operating room today. OPERATIVE DETAILS: Patient was correctly identified in preoperative holding and taken back to the operating room where she was administered general anesthesia. She was prepped and draped in sterile fashion all proper timeouts were performed. The left arm was elevated and the ulnar and radial arteries were compressed and the tourniquet was then inflated to 250 mmHg on the arm. A 15 blade scalpel was used to incise over the previous incisions and open up the wound over the left long finger MCP joint. Blunt dissection and gentle spreads were used and the wound auto dissected essentially back into the MCP joint where the majority the purulence was coming from. Cultures of subcutaneous tissue (broad-spectrum cultures for all possible organisms) as well as joint cultures were taken, and then the wound was irrigated. The joint was irrigated with 3 L of normal saline and 500 cc of Irrisept. The tourniquet was let down and hemostasis obtained with bipolar electrocautery. A drain was placed (quarter inch Kati) traveling from the joint through the incision, and was sutured in place with interrupted 3-0 nylon. 1 other 3-0 nylon suture was used to tack the proximal portion of the incision over the exposed EDC tendon. The patient tolerated the procedure well and was awakened and taken the PACU in stable condition. EBL: 5 Anesthesia: General anesthesia with 10 cc of 1% lidocaine with 1-200,000 epinephrine ASA: 2E IVF: 800 cc NS UOP: None measured no Sotelo Transfusions: None POST-OPERATIVE PLAN: Admission for IV antibiotics and 3 times daily to have soap soaks. Strict elevation with blue arm elevator. Infectious disease consult immediately. I am concerned she may need more broad-spectrum antibiotics and parenteral antibiotic administration for a long course given that she failed oral antibiotics and had a recurrence after she had initially improved.
[2024-02-06 20:16] LABS: M R Staph aureus DNA By PCR Negative (Negative); Probe Check PASS; Specimen Processing Control PASS; Staph aureus DNA By PCR NEGATIVE (Negative)
[2024-02-07 02:45] VITALS: BP 112/59; PULSE 68; RESP 16; TEMP 36.6; O2SAT 96
[2024-02-07] MEDS: Ampicillin/Sulbactam 3 GM in 0.9% Normal Saline (100mL MB+) 100 ML IV ×2 (06:37→11:37)
[2024-02-07 06:41] VITALS: BP 123/76; PULSE 68; RESP 16; TEMP 36.8; O2SAT 98
--- NOTE | 2024-02-07 07:16 | PCM.PN.BLA ---
Progress Note Postop day 1 from left upper extremity I&D. Pain control. Tolerating Dial soap soaks. No fevers chills Physical Exam Narrative Left upper extremity Seen and examined no purulence from incisions. No surrounding redness or induration or signs of ascending infection. Assessment & Plan Assessment/Plan (1) Septic joint of left hand: PLAN: Pain: Controlled with Tylenol and Roxicodone Respiratory: Incentive spirometer Abdomen: MiraLAX as needed Infectious disease: Continue Unasyn and reach out to infectious disease today, follow-up wound cultures DVT prophylaxis: 40 mg Lovenox subq daily, ambulate and SCDs Wound care: Continue Dial soap soaks 3 times daily Follow-up CBC and BMP from today Procedures Integumentary 111xxx-113xx: [id number] Global Visit
--- NOTE | 2024-02-07 07:26 | WOUNDNOTE ---
Pt currently soaking hand. Dr Wing had been in to see patient this am.
--- NOTE | 2024-02-07 07:39 | WOUNDNOTE ---
wound photo: left hand
[2024-02-07 07:57] VITALS: BP 116/64; PULSE 66; RESP 16; TEMP 37.1; O2SAT 100
[2024-02-07] MEDS: 0.9% Saline Lock 10 ML Syringe IV ×2 (08:05→15:02)
--- NOTE | 2024-02-07 08:22 | NURSING ---
pt states 'i hate needles and being poke, is ambulatory and has SCDS. declines lovenox shot.
[2024-02-07 08:55] LABS: Hematocrit 38.1 % (37-47); Hemoglobin 12.1 g/dL (12.0-15.0); Mean Corp Hgb Conc 31.8 g/dL (32-36); Mean Corpuscular Hgb 29.2 pg (27.0-32.0); Mean Corpuscular Volume 91.8 fL (81-99); Mean Platelet Vol. 11.3 fl (6.2-12.0); Platelet Count 349 K/mm3 (150-450); RBC Distribution Width CV 13.7 % (11.6-14.6); RBC Distribution Width SD 46.3 fl (35.1-43.9); Red Blood Count 4.15 M/mm3 (4.2-5.4); White Blood Count 10.7 K/mm3 (4.4-11.0)
[2024-02-07 10:46] LABS: Anion Gap 7 (5-15); BUN 11 mg/dL (7-18); BUN/Creat Ratio 16.6 RATIO (10-20); Calcium,Total 9.6 mg/dL (8.5-10.1); Chloride 105 mmol/L (98-107); Creatinine, Serum 0.66 mg/dL (0.55-1.02); EST Glomerular Filtration Rate 110 mL/min (>60); Est Glom Filt Rate - Afr Amer 133 mL/min (>60); Estimated Creatinine Clearance 153.95 ml/min; Glucose 95 mg/dL (74-106); Potassium 3.5 mmol/L (3.5-5.1); Sodium Level 139 mmol/L (136-145)
[2024-02-07] MEDS: 0.9% Normal Saline (250mL Bag) 250 ML 15 ML IV (11:38)
[2024-02-07] MEDS: Acetaminophen 500 MG Tablet 1000 MG PO ×2 (11:40→21:38)
[2024-02-07] MEDS: Ondansetron ODT 4 MG Tablet 8 MG PO (12:14)
--- NOTE | 2024-02-07 13:05 | PCM.CONS.GEN ---
Assessment & Plan Assessment/Plan (1) Septic joint of left hand: PLAN: Admitted end of January after cat bite. Taken to OR 01/24/[address] Wing for I&D. Surg cx with pasteurella and anaerobes. Discharged home with 3 weeks po augmentin, surgery followup. New onset inflammation and drainage. Reports compliance with soaks, abx, dressings. Admitted here 02/05, taken to OR that day by Dr. Wing for I&D. Surg cx now with GNR. Will change unasyn to zosyn. Will order picc due to poor iv access. Home going abx will depend on further cx data. Will follow, thank you, d/w nursing and nurse case management (2) Cat bite of left hand with infection: HPI Consult Data Date of Consult: 02/07/24 HPI Narrative Reason for Consultation: cat bite HPI Narrative: EYAD ROCHA, is a 33 F who presented with worsening L hand. Admitted end of January after cat bite. Taken to OR 01/24/[address] Wing for I&D. Surg cx with pasteurella and anaerobes. Discharged home with 3 weeks po augmentin, surgery followup. Finger doing well until one day of increased redness, swelling, drainage, pain. No fever or chills. Reports compliance with soaks, abx, dressings. Admitted here 02/05, taken to OR that day by Dr. Wing for I&D. Feeling ok, redness improved. Full ROS performed and neg except as noted above. [facility] Medical History Cellulitis and abscess of hand Obesity Anxiety and depression Home Medications ?Medication ?Instructions ?Recorded ?Last Taken ?Type amoxicillin 875 mg-potassium 1 tab PO BIDCM 21 days #42 tabs 01/28/24 02/06/24 Rx clavulanate 125 mg tablet ferrous gluconate 324 mg (37.5 mg 324 mg PO LUNCH 30 days #30 tabs 01/28/24 02/05/24 Rx iron) tablet Allergy/AdvReac Type Severity Reaction Status Date / Time No Known Allergies Allergy Verified 02/06/24 12:38 Family History Mother Heart disease Hypertension Grandmother Diabetes Heart disease Grandfather No problems noted. 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 denies vaping, denies edibles, denies marijuana , uses ibuprofen, denies aspirin use, Physical Exam Const alert, oriented x3 and no apparent distress General Appearance: cooperative HEENT normocephalic and head/scalp atraumatic Eyes PERRL and EOMs intact bilaterally Neck supple and No nodes Resp normal air movement and clear to auscultation bilaterally Cardio regular rate and regular rhythm GI soft to palpation, non-tender and non-distended Extremity General Extremity: Negative for edema Skin Skin Narrative: L hand wrapped Neuro CN's II-XII intact bilaterally Lab / Micro Data Attestation: I reviewed the patient's lab results. 02/07/24 08:30 02/07/24 08:30 Labs: Laboratory Results - last 24 hr 02/06/24 17:37: S.aureus Protein A PCR NEGATIVE, MRSA (PCR) Negative 02/07/24 08:30: WBC 10.7, RBC 4.15 L, Hgb 12.1, Hct 38.1, MCV 91.8, MCH 29.2, MCHC 31.8 L, RDW Std Deviation 46.3 H, RDW Coeff of Becky 13.7, Plt Count 349, MPV 11.3, Sodium 139, Potassium 3.5, Chloride 105, Carbon Dioxide 27.0, Anion Gap 7, BUN 11, Creatinine 0.66, Estim Creat Clear Calc 153.95, Est GFR (MDRD) Af Amer 133, Est GFR (MDRD) Non-Af 110, BUN/Creatinine Ratio 16.6, Glucose 95, Calcium 9.6 Micro: Microbiology 02/06/24 17:37 Tissue - Hand Gram Stain - Final 02/06/24 17:37 Tissue - Hand Wound Culture - Preliminary Gram negative noni 02/06/24 17:37 Wound - Left Hand Gram Stain - Final 02/06/24 17:37 Wound - Hand Gram Stain - Final Imaging Radiology Impression Hand X-Ray 02/06/24 10:27 IMPRESSION: Normal x-ray examination of the hand. Electronically Signed: Mihai Buckley MD at 11:33 EDT ,
[2024-02-07 14:14] VITALS: BP 111/59; PULSE 73; RESP 18; TEMP 36.8; O2SAT 100
--- NOTE | 2024-02-07 15:01 | CASEMGMT ---
BETSY GARRISON Readmission Note Previous Admission: 01/24/24-01/28/24 Diagnosis: joint washout DC Disposition: Home Current Admission: Admitted 02/06/24 Current Diagnosis: septic joint left hand Pt admitted on index admission after a cat bit. Pt had I&D and was sent home with dial soaks 3x/day and 3 wks of augmentin and surgical follow up. BETSY GARRISON into pt room, pt states she did do the dial soaks and she was taking the augmentin as ordered. Pt did follow up with and all was well. Pt then had new inflammation and drainage. On day of admission pt had a repeat arthrotomy and washout of left long finger metacarpal phalangeal joint. Dial soaks ordered. ID consulted. Discussed with pt the possibility of IV atb. Pt would be interested in doing IV atb at home if need. BETSY GARRISON to follow. DC Plan: Home, follow for IV atb.
[2024-02-07] MEDS: Piperacil/Tazobactam 3.375 GM in 0.9% Normal Saline (50mL MB+) 50 ML IV ×2 (15:02→21:38)
[2024-02-07] MEDS: oxyCODONE 5 MG Tablet PO (21:38)
[2024-02-07 21:48] VITALS: BP 160/83; PULSE 87; RESP 16; TEMP 37; O2SAT 99
[2024-02-08] MEDS: Piperacil/Tazobactam 3.375 GM in 0.9% Normal Saline (50mL MB+) 50 ML IV ×3 (06:13→22:20)
[2024-02-08 06:16] VITALS: BP 106/53; PULSE 64; RESP 16; TEMP 36.7; O2SAT 96
--- NOTE | 2024-02-08 08:13 | PN.SURG_ITS ---
Subjective Subjective Doing better this morning. Pain controlled. No complaints. Reports that she's been walking around the [place]. She declined Lovenox. Objective Data Objective Data Vital Signs: Vital Signs Temp Pulse Resp BP Pulse Ox O2 Del Method O2 Flow Rate 98.1 F 64 16 106/53 L 96 Room Air 2 02/08/24 06:16 02/08/24 06:16 02/08/24 06:16 02/08/24 06:16 02/08/24 06:16 02/08/24 06:16 02/06/24 22:45 Oxygen Flow Rate (L/min) 2 Oxygen Delivery Method Room Air Weight: 231 lb 7.766 oz Body Mass Index (BMI) 36.2 Intake & Output: Intake and Output for Last 24 Hours 02/06/24 02/07/24 02/08/24 23:59 23:59 23:59 Intake Total 1582.75 / 1582.75 1142.00 / 1142.00 750 / 750 Balance 1582.75 / 1582.75 1142.00 / 1142.00 750 / 750 Lab / Micro Data 02/07/24 08:30 02/07/24 08:30 Labs: Laboratory Results - last 24 hr 02/07/24 08:30: WBC 10.7, RBC 4.15 L, Hgb 12.1, Hct 38.1, MCV 91.8, MCH 29.2, M CHC 31.8 L, RDW Std Deviation 46.3 H, RDW Coeff of Becky 13.7, Plt Count 349, MPV 11.3, Sodium 139, Potassium 3.5, Chloride 105, Carbon Dioxide 27.0, Anion Gap 7, BUN 11, Creatinine 0.66, Estim Creat Clear Calc 153.95, Est GFR (MDRD) Af Amer 133, Est GFR (MDRD) Non-Af 110, BUN/Creatinine Ratio 16.6, Glucose 95, Calcium 9.6 Micro: Microbiology 02/06/24 17:37 Tissue - Hand Gram Stain - Final 02/06/24 17:37 Tissue - Hand Wound Culture - Preliminary Gram negative noni 02/06/24 17:37 Wound - Left Hand Gram Stain - Final 02/06/24 17:37 Wound - Hand Gram Stain - Final Radiography Diagnostic Testing: Radiology Impression Hand X-Ray 02/06/24 10:27 IMPRESSION: Normal x-ray examination of the hand. Electronically Signed: Mihai Buckley MD at 11:33 EDT , Physical Exam Narrative Left upper extremity Seen and examined, no purulence from incisions. No tenderness with axial loading of the left long finger MCP joint. No surrounding redness or induration or signs of ascending infection. Const alert and oriented x3 HEENT normocephalic Eyes EOMs intact bilaterally Lymph Lymphatic: no lymphadenopathy noted Resp normal respiratory effort Cardio regular rate and regular rhythm Extremity Extremity Narrative: SCDs on and activated Assessment & Plan Assessment/Plan (1) Septic joint of left hand: PLAN: Pain: Controlled with Tylenol and Roxicodone Respiratory: Incentive spirometer Abdomen: MiraLAX as needed Infectious disease: Changed Unasyn to Zosyn (GNRs growing from cultures), follow-up wound cultures. F/u ID recommendations (consulted). She got a PICC line yesterday. DVT prophylaxis: 40 mg Lovenox subq daily (patient has declined this medicine), ambulate and SCDs Nutrition: Regular Diet Electrolytes/Renal: BMP tomorrow Wound care: Continue Dial soap soaks 3 times daily (2) Cat bite of left hand with infection: Charges/Coding Procedures Integumentary 111xxx-113xx: [id number] Global Visit
[2024-02-08 10:50] VITALS: BP 103/68; PULSE 63; RESP 18; TEMP 36.7; O2SAT 100
[2024-02-08] MEDS: Polyethylene Glycol 3350 17 GM PACKET PO ×2 (13:09→22:21)
[2024-02-08 13:30] VITALS: BP 126/76; PULSE 75; RESP 18; TEMP 36.7; O2SAT 100
[2024-02-08 15:29] VITALS: BP 109/72; PULSE 66; RESP 16; TEMP 36.8; O2SAT 100
[2024-02-08] MEDS: 0.9% Normal Saline (1000mL) 1,000 ML 15 ML IV (18:33)
[2024-02-08] MEDS: Acetaminophen 500 MG Tablet 1000 MG PO (22:19)
[2024-02-08] MEDS: oxyCODONE 5 MG Tablet PO (22:19)
[2024-02-08 22:56] VITALS: BP 112/68; PULSE 69; RESP 14; TEMP 36.7; O2SAT 96
--- NOTE | 2024-02-09 03:42 | NURSING ---
Reviewed Evette CEPHALOMETRIC TECHNICIAN charting.
[2024-02-09 05:01] VITALS: BP 107/71; PULSE 68; RESP 14; TEMP 36.6; O2SAT 99
[2024-02-09] MEDS: Piperacil/Tazobactam 3.375 GM in 0.9% Normal Saline (50mL MB+) 50 ML IV ×3 (05:07→21:44)
--- NOTE | 2024-02-09 06:17 | PCM.PN.SRG ---
Subjective Subjective NAEON. Doing well overall. Tolerating the soaks. Had a BM and feels better. Objective Data Objective Data Vital Signs: Vital Signs Temp Pulse Resp BP Pulse Ox O2 Del Method O2 Flow Rate 97.9 F 68 14 107/71 99 Room Air 2 02/09/24 05:01 02/09/24 05:01 02/09/24 05:01 02/09/24 05:01 02/09/24 05:01 02/09/24 05:01 02/06/24 22:45 Oxygen Flow Rate (L/min) 2 Oxygen Delivery Method Room Air Weight: 231 lb 7.766 oz Body Mass Index (BMI) 36.2 Intake & Output: Intake and Output for Last 24 Hours 02/07/24 02/08/24 02/09/24 23:59 23:59 23:59 Intake Total 1142.00 / 1142.00 1688.75 / 1688.75 350 / 350 Balance 1142.00 / 1142.00 1688.75 / 1688.75 350 / 350 Lab / Micro Data 02/07/24 08:30 02/07/24 08:30 Micro: Microbiology 02/06/24 17:37 Wound - Left Hand Gram Stain - Final 02/06/24 17:37 Wound - Left Hand Wound Culture - Preliminary No growth-Final to follow 02/06/24 17:37 Wound - Hand Gram Stain - Final 02/06/24 17:37 Wound - Hand Wound Culture - Preliminary No growth-Final to follow 02/06/24 17:37 Tissue - Hand Gram Stain - Final 02/06/24 17:37 Tissue - Hand Wound Culture - Preliminary Gram negative noni Physical Exam Narrative Left upper extremity Seen and examined, no purulence from incisions. No tenderness with axial loading of the left long finger MCP joint. No surrounding redness or induration or signs of ascending infection. Const alert and oriented x3 HEENT normocephalic Eyes EOMs intact bilaterally Lymph Lymphatic: no lymphadenopathy noted Resp normal respiratory effort Cardio regular rate and regular rhythm Extremity Extremity Narrative: SCDs on and activated Assessment & Plan Assessment/Plan (1) Septic joint of left hand: PLAN: Pain: Controlled with Tylenol and Roxicodone Respiratory: Incentive spirometer Abdomen: MiraLAX as needed Infectious disease: Changed Unasyn to Zosyn (GNRs growing from cultures), follow-up wound cultures. F/u ID recommendations (consulted). She got a PICC line on Saturday, 07 Feb 2024. DVT prophylaxis: 40 mg Lovenox subq daily (patient has declined this medicine), ambulate and SCDs. Discussed DVT risks again today (declined Lovenox again). Nutrition: Regular Diet Electrolytes/Renal: F/u BMP Wound care: Continue Dial soap soaks 3 times daily She is doing quite well clinically. Once cultures finalize and ID gives recommendations for home antibiotics (she has a PICC already), I believe she will be ready to go home. I will likely pull drain tomorrow morning. (2) Cat bite of left hand with infection: Charges/Coding Procedures Integumentary 111xxx-113xx: [id number] Global Visit
[2024-02-09 08:22] VITALS: BP 117/80; PULSE 70; RESP 18; TEMP 36.7; O2SAT 98
[2024-02-09] MEDS: Polyethylene Glycol 3350 17 GM PACKET PO ×2 (08:43→21:46)
[2024-02-09 10:25] LABS: Anion Gap 6 (5-15); BUN 13 mg/dL (7-18); BUN/Creat Ratio 21.8 RATIO (10-20); Calcium,Total 8.8 mg/dL (8.5-10.1); Chloride 108 mmol/L (98-107); EST Glomerular Filtration Rate 125 mL/min (>60); Est Glom Filt Rate - Afr Amer 151 mL/min (>60); Estimated Creatinine Clearance 169.34 ml/min; Glucose 96 mg/dL (74-106); Potassium 3.6 mmol/L (3.5-5.1); Sodium Level 141 mmol/L (136-145)
[2024-02-09 14:25] VITALS: BP 108/75; PULSE 67; RESP 19; TEMP 36.6; O2SAT 98
--- NOTE | 2024-02-09 14:29 | NURSING ---
Lt hand drsg unwrapped and getting in the shower. This RN wrapped PICC line with drsg.
[2024-02-09] MEDS: 0.9% Saline Lock 10 ML Syringe IV (15:38)
--- NOTE | 2024-02-09 15:41 | NURSING ---
pt is Soaking her hand in dial soap and water for the 2nd time today.
[2024-02-09] MEDS: Acetaminophen 500 MG Tablet 1000 MG PO (21:45)
[2024-02-09] MEDS: oxyCODONE 5 MG Tablet PO (21:45)
[2024-02-09 21:46] VITALS: BP 115/73; PULSE 73; RESP 18; TEMP 36.8; O2SAT 97
[2024-02-10 05:15] VITALS: BP 118/73; PULSE 68; RESP 16; TEMP 36.6
[2024-02-10] MEDS: Piperacil/Tazobactam 3.375 GM in 0.9% Normal Saline (50mL MB+) 50 ML IV (05:56)
--- NOTE | 2024-02-10 06:28 | PCM.PN.SRG ---
Subjective Subjective Doing well this morning. No pain from the left hand. Feels better. Objective Data Objective Data Vital Signs: Vital Signs Temp Pulse Resp BP Pulse Ox O2 Del Method O2 Flow Rate 98.3 F 73 18 115/73 97 Room Air 2 02/09/24 21:46 02/09/24 21:46 02/09/24 21:46 02/09/24 21:46 02/09/24 21:46 02/09/24 21:46 02/06/24 22:45 Oxygen Flow Rate (L/min) 2 Oxygen Delivery Method Room Air Weight: 231 lb 7.766 oz Body Mass Index (BMI) 36.2 Intake & Output: Intake and Output for Last 24 Hours 02/08/24 02/09/24 02/10/24 23:59 23:59 23:59 Intake Total 1688.75 / 1688.75 1502 / 1502 50 / 50 Balance 1688.75 / 1688.75 1502 / 1502 50 / 50 Lab / Micro Data 02/07/24 08:30 02/09/24 10:00 Labs: Laboratory Results - last 24 hr 02/09/24 10:00: Sodium 141, Potassium 3.6, Chloride 108 H, Carbon Dioxide 27.0, Anion Gap 6, BUN 13, Creatinine 0.60, Estim Creat Clear Calc 169.34, Est GFR (MDRD) Af Amer 151, Est GFR (MDRD) Non-Af 125, BUN/Creatinine Ratio 21.8 H, Glucose 96, Calcium 8.8 Micro: Microbiology 02/06/24 17:37 Wound - Left Hand Gram Stain - Final 02/06/24 17:37 Wound - Left Hand Wound Culture - Final No growth aerobically. 02/06/24 17:37 Tissue - Hand Gram Stain - Final 02/06/24 17:37 Tissue - Hand Wound Culture - Final Pasteurella multocida 02/06/24 17:37 Wound - Hand Gram Stain - Final 02/06/24 17:37 Wound - Hand Wound Culture - Preliminary No growth-Final to follow Physical Exam Narrative Left upper extremity Seen and examined, no purulence from incisions. Drain removed on rounds. No tenderness with axial loading of the left long finger MCP joint. No surrounding redness or induration or signs of ascending infection. Const alert and oriented x3 HEENT normocephalic Eyes EOMs intact bilaterally Lymph Lymphatic: no lymphadenopathy noted Resp normal respiratory effort Cardio regular rate and regular rhythm Extremity Extremity Narrative: SCDs on and activated Assessment & Plan Assessment/Plan (1) Septic joint of left hand: PLAN: Pain: Controlled with Tylenol and Roxicodone Respiratory: Incentive spirometer Abdomen: MiraLAX as needed Infectious disease: On Zosyn, Pasteurella growing from cultures of soft tissue. F/u ID recommendations (consulted). She got a PICC line on Saturday, 07 Feb 2024. Bacteria sensitive to Ancef. DVT prophylaxis: 40 mg Lovenox subq daily (patient has declined this medicine), ambulate and SCDs. Discussed DVT risks again today (declined Lovenox again). Nutrition: Regular Diet Electrolytes/Renal: BMP unremarkable yesterday Wound care: Continue Dial soap soaks 3 times daily She is doing quite well clinically. Once ID gives recommendations for home antibiotics (she has a PICC already) are in, I believe she will be ready to go home. Drain was pulled (after 4 days). Improving clinically. (2) Cat bite of left hand with infection: Charges/Coding Procedures Integumentary 111xxx-113xx: [id number] Global Visit
[2024-02-10] MEDS: DAKIN'S SOL HALF STRENGTH (=0.25%) TOPICAL ×2 (06:52→13:58)
[2024-02-10 07:56] VITALS: BP 115/74; PULSE 81; RESP 16; TEMP 36.7; O2SAT 100
[2024-02-10] MEDS: Polyethylene Glycol 3350 17 GM PACKET PO (08:03)
--- NOTE | 2024-02-10 13:30 | CASEMGMT ---
BETSY GARRISON received rx from [facility] for IV atb. BETSY GARRISON into pt room. Provided pt with options of [facility] and infusion company for pt to do at home and [facility] infusion center. Pt currently does not have PCP. Pt requests to come to infusion center. Pt states she will set herself up with PCP. She states she has a pamphlet for this but no one is accepting patient's until Novemeber. She is aware that BETSY GARRISON can see if or [facility] will follow [facility]. She states she will just come into the hospital. TC to [facility]oc at [facility], they are able to see pt tomorrow at 1pm. Order faxed to [facility] at this time. Updated pt on plan and placed on dc plan.
[2024-02-10] MEDS: 0.9% Saline Lock 10 ML Syringe IV ×2 (13:46→14:56)
[2024-02-10] MEDS: Ceftriaxone 2 GM in 0.9% Normal Saline (50mL MB+) 50 ML IV (13:47)
--- NOTE | 2024-02-10 14:09 | PN.ID_ITS ---
Physical Exam Narrative Feeling better, hand less sore, no fever, no n/v/d, picc in place Const alert and no apparent distress General Appearance: cooperative Resp normal air movement and clear to auscultation bilaterally Cardio regular rate and regular rhythm GI soft to palpation, non-tender and non-distended Skin Skin Narrative: R hand wrapped ID ID: Route of nutrition/ use of supplements: [] Nutritional Intake: [] IV Site: [] Sotelo Catheter: [] Assessment & Plan Assessment/Plan (1) Septic joint of left hand: PLAN: Admitted end of January after cat bite. Taken to OR 01/24/[address] Wing for I&D. Surg cx with pasteurella and anaerobes. Discharged home with 3 weeks po augmentin, surgery followup. New onset inflammation and drainage. Reports compliance with soaks, abx, dressings. Admitted here 02/05, taken to OR that day by Dr. Wing for I&D. Surg cx now with pasteurella again. On zosyn, will na rrow to ceftriaxone and po flagyl, 4 week course with stop date 03/04/24 with weekly labs, ID followup in 2-3 weeks. Will follow, d/w pillowcase maker (2) Cat bite of left hand with infection:
[2024-02-10 14:51] VITALS: BP 119/73; PULSE 85; RESP 18; TEMP 36.3; O2SAT 100
[2024-02-10] MEDS: metroNIDAZOLE 500 MG Tablet PO (14:55)
--- NOTE | 2024-02-10 17:50 | DS.PCM_ITS ---
Providers Date of Admission: 02/06/24 Primary Care Physician: Zeenat Primary Care Phys Consultations 02/06/24 20:54 Consult: Infectious Disease Routine Consulting Provider: Osito Frederick Reason for Consult: Left hand cat bite, requiring second operative washout EMERGENT Consult: No MD Notified: Yes Date Notified: 02/07/24 Time Notified: 06:37 Method of Notification: Answering Service Reason For Visit: eorders Diagnosis Discharge Diagnosis (1) Septic joint of left hand: Status: Acute Code(s): M00.9 - Pyogenic arthritis, unspecified Plan: Pain: Controlled with Tylenol and Roxicodone Respiratory: Incentive spirometer Abdomen: MiraLAX as needed Infectious disease: On Zosyn, Pasteurella growing from cultures of soft tissue. F/u ID recommendations (consulted). She got a PICC line on Saturday, 07 Feb 2024. Bacteria sensitive to Ancef. DVT prophylaxis: 40 mg Lovenox subq daily (patient has declined this medicine), ambulate and SCDs. Discussed DVT risks again today (declined Lovenox again). Nutrition: Regular Diet Electrolytes/Renal: BMP unremarkable yesterday Wound care: Continue Dial soap soaks 3 times daily She is doing quite well clinically. Once ID gives recommendations for home antibiotics (she has a PICC already) are in, I believe she will be ready to go home. Drain was pulled (after 4 days). Improving clinically. (2) Cat bite of left hand with infection: Status: Acute Code(s): S61.452A - Open bite of left hand, initial encounter; L08.9 - Local infection of the skin and subcutaneous tissue, unspecified; W55.01XA - Bitten by cat, initial encounter Medications at Discharge Home Medications ferrous gluconate 324 mg (37.5 mg iron) tablet 324 mg PO LUNCH 30 days #30 tabs 01/28/24 ceftriaxone 2 gram intravenous solution 2 g IV Q24H 24 days 02/10/24 metronidazole 500 mg tablet 500 mg PO TID 24 days #72 tabs 02/10/24 Hospital Course Operations - (Left long finger septic MCP joint washout) Summary of Care Provided Hospital Course: Patient was admitted from clinic on 06 February 2024 and taken emergently to the operating room for a washout of a recurrent left long finger septic MCP joint. A drain was left in place. She was placed on Dial soap soaks and Zosyn. Infectious disease was consulted. The cultures finalized and were Pasteurella again. She was placed on ceftriaxone and metronidazole from infectious disease, and has long-term follow-up with them as outpatient (got a PICC line). She improved clinically and there is no purulence from the incisions so the drain was removed on postop day 4. Patient was afebrile with stable vital signs at the time of discharge Physical Exam Narrative Left upper extremity Seen and examined, no purulence from incisions. Drain removed on rounds this morning. No tenderness with axial loading of the left long finger MCP joint. No surrounding redness or induration or signs of ascending infection. Const alert and oriented x3 HEENT normocephalic Eyes EOMs intact bilaterally Lymph Lymphatic: no lymphadenopathy noted Resp normal respiratory effort Cardio regular rate and regular rhythm Extremity Extremity Narrative: SCDs on and activated Weight / BMI Weight Weight: 231 lb 7.766 oz Body Mass Index (BMI) 36.2 ABG / Lab / Microbiology Data 02/07/24 08:30 02/09/24 10:00 Microbiology: Microbiology 02/06/24 17:37 Tissue - Hand Gram Stain - Final 02/06/24 17:37 Tissue - Hand Wound Culture - Final Pasteurella multocida 02/06/24 17:37 Tissue - Hand Anaerobic Culture - Preliminary Checking for anaerobes, further studies to follow. 02/06/24 17:37 Wound - Left Hand Gram Stain - Final 02/06/24 17:37 Wound - Left Hand Wound Culture - Final No growth aerobically. 02/06/24 17:37 Wound - Left Hand Anaerobic Culture - Preliminary No growth in 48 hours. 02/06/24 17:37 Wound - Hand Gram Stain - Final 02/06/24 17:37 Wound - Hand Wound Culture - Final No growth aerobically. 02/06/24 17:37 Wound - Hand Anaerobic Culture - Preliminary No growth in 48 hours. Meaningful Use Info Meaningful Use Meaningful Use Diagnoses (Choose all that apply): None applicable Ischemic Stroke Statin Dosing Therapy Reference: STATIN DOSE THERAPY REFERENCE: * Patients > 75 years receive moderate or high dose statin therapy. * Patients 75 years or YOUNGER should receive HIGH intensity statin dose unless contraindicated. You will be required to document reason for non-treatment if statin daily dose does not meet guidelines. HIGH DOSE STATIN THERAPY DAILY Atorvastatin > than or = to 40 mg Rosuvastatin > than or = to 20 mg Amlodipine + Atorvastatin > than or = to 2.5/40 mg Ezetimibe + Simvastatin 10/80 mg Simvastatin 80mg Discharge Plan Admission Admit Date/Time: 02/06/24 16:24 Attending Provider: Osito Wing Primary Care Provider: Care Physician,No Primary Consulting Providers: Rosana Bean TIPPLE TENDER; Osito Frederick Instructions Additional Instructions / Restrictions: The following instructions will help you know what to expect in the days following surgery. These are general instructions. Your surgeon and therapist may give you special instructions, which vary to some degree based on your specific procedure -- follow those as directed. Do not, however, hesitate to call if you have any questions or concerns. Splint Care/Dressing Care/Wound Care * Dressings - Dry dressing after three times per day dial soap soaks * Avoid smoking or other tobacco products. Smoking tobacco impairs wound healing and increases the risks of post-operative complications. ? Activities * For the first 4 weeks after surgery, try to balance your activity, allowing time for rest. * Avoid lifting, pushing, or pulling anything over 5 pounds. * Do not drive or operate heavy machinery within 24 hrs of surgery or while taking narcotic pain medication.? Pain Control/Medications * If you received an anesthetic block, your hand or arm may be numb for several hours. You will be discharged to home with medications, including an oral pain medication (analgesic). Rest and elevation are still one of the most important factors for pain control. Take your pain medication as needed, but do not wait for the pain to become out of control. * For severe pain, you may take prescription pain medication as directed, but please note that this may also contain Tylenol (e.g. Percocet). Do not take more than 4000mg of Tylenol (acetaminophen) from all sources daily.? * Pain medication may cause some lethargy, nausea, and or constipation. You should not drive/operate dangerous machinery while taking these medications. If these or other symptoms become significantly problematic, please your surgeon's office. * If prescribed oral antibiotics (Keflex, Clindamycin, or others), please take prescription for full duration as instructed. You should not have any pills remaining once completed (refills are written for your convenience should the course need to be extended, but generally they are not required). MAKE SURE TO TAKE YOU ANTIBIOTICS Diet (what I can eat): Resume normal diet Follow up * You will be seen in clinic on , 13 Feb 2024. Follow-up appointment reminders:? (A list of any scheduled appointments is at the end of this document)? At your earliest convenience, please call [phone] to confirm/schedule a follow-up appointment with [ ] in clinic. When to call your surgeon: * If any signs of surgical site infection develop: redness, pus, pain, increased swelling or foul odor at the incision site, fever, cold and clammy skin, or confusion. * Consistent temperature above 101?F (38.3?C). * The affected area gets swollen or much more painful. * You have excessive bleeding from surgical site (soaking through). If you experience difficulty breathing and/or shortness of breath, seek immediate medical attention. If experiencing any of the above complications or if you have any questions, call [phone] Discharge Orders/Prescriptions Prescriptions: New ceftriaxone 2 gram recon soln 2 g IV Q24H 24 Days Rx Instructions: stop date 03/04/24. Dx septic arthritis. Weekly bmp and cbc. Fax to [phone]. Routine picc care per protocol. metronidazole 500 mg Tablet 500 mg PO TID 24 Days Qty: 72 0RF Discontinued amoxicillin-pot clavulanate 875-125 mg Tablet 1 tab PO BIDCM 21 Days Qty: 42 0RF No Action ferrous gluconate 324 mg (37.5 mg iron) Tablet 324 mg PO LUNCH 30 Days Qty: 30 0RF Referrals / Follow Up: Care Physician,No Primary [Primary Care Provider] - Disposition Disposition (needs filled in before D/C Order can be placed): Home, Self Care Charges/Coding Procedures Integumentary [id number]: [id number] Global Visit
== END 2024-02-10 18:30 | disposition home or self-care (01) | DRG 506 ==
LOC: SDC 02-07 08:30 → MS3 02-07 08:30
PROVIDERS: Anesthesiology; Admitting Provider Nurse Practitioner Family; Referring Provider Surgery Plastic and Reconstructive Surgery; Visit Provider Surgery Plastic and Reconstructive Surgery
PROC: 0R9 Upper Joints, Drainage (ICD-10-PCS; principal; 2024-02-06 15:15)
DX: M00.842 Arthritis due to other bacteria, left hand (principal); B96.89 Other specified bacterial agents as the cause of diseases classified elsewhere; S61.452A Open bite of left hand, initial encounter; W55.01XA Bitten by cat, initial encounter; Z79.2 Long term (current) use of antibiotics
CPT/HCPCS: 36415; 36569; 73130; 80048; 81025; 85027; 87015; 87070; 87075; 87077; 87102; 87116; 87186; 87205; 87206; 87640; 97802; J7030; J7050; A4216; J0295; J0696; J2405

== ENCOUNTER 2024-02-11 12:53 | Outpatient (CLI) | payer BC, SELFPAY ==
[2024-02-11 13:12] VITALS: BP 109/91; PULSE 86; RESP 16; TEMP 36.2; O2SAT 100; BMI 36.8
[2024-02-11] MEDS: Ceftriaxone 2 GM in 0.9% Normal Saline (50mL MB+) 50 ML IV (13:20)
[2024-02-11 14:17] VITALS: BP 108/69; PULSE 87
== END 2024-02-11 23:59 | disposition home or self-care (01) ==
LOC: MEDOUTP 12:54
PROVIDERS: Referring Provider Internal Medicine Infectious Disease; Visit Provider Internal Medicine Infectious Disease
DX: M00.9 Pyogenic arthritis, unspecified (principal)
CPT/HCPCS: 96365; J7050; A4216; J0696

== ENCOUNTER 2024-02-12 12:56 | Outpatient (CLI) | payer BC, SELFPAY ==
[2024-02-12 13:04] VITALS: BP 120/65; PULSE 95; RESP 16; O2SAT 100
[2024-02-12] MEDS: Ceftriaxone 2 GM in 0.9% Normal Saline (50mL MB+) 50 ML IV (13:07)
[2024-02-12 13:58] VITALS: BP 112/73; PULSE 82; RESP 16
== END 2024-02-12 23:59 | disposition home or self-care (01) ==
LOC: MEDOUTP 12:56
PROVIDERS: Referring Provider Internal Medicine Infectious Disease; Visit Provider Internal Medicine Infectious Disease
DX: M00.9 Pyogenic arthritis, unspecified (principal)
CPT/HCPCS: 96365; J7050; A4216; J0696

== ENCOUNTER 2024-02-13 12:58 | Outpatient (CLI) | payer BC, SELFPAY ==
[2024-02-13] MEDS: Ceftriaxone 2 GM in 0.9% Normal Saline (50mL MB+) 50 ML IV (13:14)
[2024-02-13 13:16] VITALS: BP 122/68; PULSE 82; RESP 16; TEMP 36.2; O2SAT 99
[2024-02-13 14:21] VITALS: BP 110/70; PULSE 76; RESP 16; TEMP 36.4; O2SAT 100
== END 2024-02-13 23:59 | disposition home or self-care (01) ==
LOC: MEDOUTP 12:59
PROVIDERS: Referring Provider Internal Medicine Infectious Disease; Visit Provider Internal Medicine Infectious Disease
DX: M00.9 Pyogenic arthritis, unspecified (principal)
CPT/HCPCS: 96365; J7050; A4216; J0696

== ENCOUNTER 2024-02-14 12:51 | Outpatient (CLI) | payer BC, SELFPAY ==
[2024-02-14 13:17] LABS: Hematocrit 37.1 % (37-47); Hemoglobin 11.9 g/dL (12.0-15.0); Mean Corp Hgb Conc 32.1 g/dL (32-36); Mean Corpuscular Hgb 29.1 pg (27.0-32.0); Mean Corpuscular Volume 90.7 fL (81-99); Mean Platelet Vol. 11.2 fl (6.2-12.0); Platelet Count 325 K/mm3 (150-450); RBC Distribution Width SD 46.4 fl (35.1-43.9); Red Blood Count 4.09 M/mm3 (4.2-5.4); White Blood Count 8.5 K/mm3 (4.4-11.0)
[2024-02-14] MEDS: Ceftriaxone 2 GM in 0.9% Normal Saline (50mL MB+) 50 ML IV (13:24)
[2024-02-14 13:31] LABS: Anion Gap 6 (5-15); BUN 9 mg/dL (7-18); BUN/Creat Ratio 17.4 RATIO (10-20); Calcium,Total 9.3 mg/dL (8.5-10.1); Chloride 106 mmol/L (98-107); Creatinine, Serum 0.52 mg/dL (0.55-1.02); EST Glomerular Filtration Rate 147 mL/min (>60); Est Glom Filt Rate - Afr Amer 178 mL/min (>60); Glucose 90 mg/dL (74-106); Potassium 3.8 mmol/L (3.5-5.1); Sodium Level 139 mmol/L (136-145)
[2024-02-14 13:32] VITALS: BP 109/68; PULSE 80; RESP 16; TEMP 37.1; O2SAT 99; BMI 36.8
[2024-02-14 14:29] VITALS: BP 111/67; PULSE 98; RESP 16; TEMP 36.9; O2SAT 100
== END 2024-02-14 23:59 | disposition home or self-care (01) ==
LOC: MEDOUTP 12:51
PROVIDERS: Referring Provider Internal Medicine Infectious Disease; Visit Provider Internal Medicine Infectious Disease
DX: M00.9 Pyogenic arthritis, unspecified (principal)
CPT/HCPCS: 96365; 36592; 80048; 85027; J7050; A4216; J0696

== ENCOUNTER 2024-02-15 13:04 | Outpatient (CLI) | payer BC, SELFPAY ==
[2024-02-15] MEDS: Ceftriaxone 2 GM in 0.9% Normal Saline (50mL MB+) 50 ML IV (13:34)
[2024-02-15] MEDS: 0.9% NaCl IVPB Med Flush (250 mL) 15 ML IV (13:34)
[2024-02-15] MEDS: 0.9% NaCl PICC Flush IV ×2 (13:34→14:32)
[2024-02-15 13:51] VITALS: BP 113/68; PULSE 73; RESP 16; TEMP 36.6; O2SAT 100
== END 2024-02-15 14:15 | disposition home or self-care (01) ==
LOC: MEDOUTP 13:10 → MS3 13:11
PROVIDERS: Referring Provider Internal Medicine Infectious Disease; Visit Provider Internal Medicine Infectious Disease
DX: M00.9 Pyogenic arthritis, unspecified (principal)
CPT/HCPCS: 96365; J7050; A4216; J0696

== ENCOUNTER 2024-02-16 13:01 | Outpatient (CLI) | payer BC, SELFPAY ==
[2024-02-16] MEDS: 0.9% NaCl PICC Flush IV ×2 (13:08→13:58)
[2024-02-16] MEDS: Ceftriaxone 2 GM in 0.9% Normal Saline (50mL MB+) 50 ML IV (13:08)
[2024-02-16] MEDS: 0.9% NaCl IVPB Med Flush (250 mL) 15 ML IV (13:09)
[2024-02-16 13:17] VITALS: BP 130/83; PULSE 71; RESP 16; TEMP 36.7; O2SAT 100
== END 2024-02-16 14:00 | disposition home or self-care (01) ==
LOC: MEDOUTP 13:01 → MS3 13:06
PROVIDERS: Referring Provider Internal Medicine Infectious Disease; Visit Provider Internal Medicine Infectious Disease
DX: M00.9 Pyogenic arthritis, unspecified (principal)
CPT/HCPCS: 96365; J7050; A4216; J0696

== ENCOUNTER 2024-02-17 13:01 | Outpatient (CLI) | payer BC, SELFPAY ==
[2024-02-17] MEDS: Ceftriaxone 2 GM in 0.9% Normal Saline (50mL MB+) 50 ML IV (13:34)
[2024-02-17 13:37] VITALS: BP 105/82; PULSE 84; RESP 16; O2SAT 100
[2024-02-17 14:33] VITALS: BP 111/69; PULSE 76; RESP 16; TEMP 36.4; O2SAT 100
== END 2024-02-17 23:59 | disposition home or self-care (01) ==
LOC: MEDOUTP 13:01
PROVIDERS: Referring Provider Internal Medicine Infectious Disease; Visit Provider Internal Medicine Infectious Disease
DX: M00.9 Pyogenic arthritis, unspecified (principal)
CPT/HCPCS: 96365; J7050; A4216; J0696

== ENCOUNTER 2024-02-18 12:41 | Outpatient (CLI) | payer BC, SELFPAY ==
[2024-02-18 13:02] VITALS: BP 119/69; PULSE 90; RESP 16; TEMP 36.4; O2SAT 100; BMI 36.8
[2024-02-18] MEDS: Ceftriaxone 2 GM in 0.9% Normal Saline (50mL MB+) 50 ML IV (13:45)
== END 2024-02-18 23:59 | disposition home or self-care (01) ==
LOC: MEDOUTP 12:41
PROVIDERS: Referring Provider Internal Medicine Infectious Disease; Visit Provider Internal Medicine Infectious Disease
DX: M00.9 Pyogenic arthritis, unspecified (principal)
CPT/HCPCS: 96365; A4216; J0696

== ENCOUNTER 2024-02-19 12:50 | Outpatient (CLI) | payer BC, SELFPAY ==
[2024-02-19] MEDS: Ceftriaxone 2 GM in 0.9% Normal Saline (50mL MB+) 50 ML IV (13:18)
[2024-02-19 13:19] VITALS: BP 152/75; PULSE 86; RESP 16; TEMP 36.2; O2SAT 100
[2024-02-19 14:25] VITALS: BP 134/94; PULSE 86; RESP 16
== END 2024-02-19 23:59 | disposition home or self-care (01) ==
LOC: MEDOUTP 12:50
PROVIDERS: Referring Provider Internal Medicine Infectious Disease; Visit Provider Internal Medicine Infectious Disease
DX: M00.9 Pyogenic arthritis, unspecified (principal)
CPT/HCPCS: 96365; J7050; A4216; J0696

== ENCOUNTER 2024-02-20 12:51 | Outpatient (CLI) | payer BC, SELFPAY ==
[2024-02-20] MEDS: Ceftriaxone 2 GM in 0.9% Normal Saline (50mL MB+) 50 ML IV (13:09)
[2024-02-20 13:10] VITALS: BP 124/72; PULSE 95; RESP 16; O2SAT 100
[2024-02-20 14:14] VITALS: BP 113/57; PULSE 93; RESP 16
== END 2024-02-20 23:59 | disposition home or self-care (01) ==
LOC: MEDOUTP 12:51
PROVIDERS: Referring Provider Internal Medicine Infectious Disease; Visit Provider Internal Medicine Infectious Disease
DX: M00.9 Pyogenic arthritis, unspecified (principal)
CPT/HCPCS: 96365; J7050; A4216; J0696

== ENCOUNTER 2024-02-21 13:03 | Outpatient (CLI) | payer BC, SELFPAY ==
[2024-02-21 13:30] VITALS: BP 121/85; PULSE 82; RESP 16; TEMP 36.4; O2SAT 99; BMI 36.8
[2024-02-21] MEDS: Ceftriaxone 2 GM in 0.9% Normal Saline (50mL MB+) 50 ML IV (13:44)
[2024-02-21 14:00] LABS: Absolute Lymphocyte Count 2.21 X10^3/uL (0.83-4.51); Absolute Neutrophil Count 4.1 X10^3/uL (2.0-7.7); Basophil# 0.06 X10^3/uL; Basophil% 0.8 % (0-1); Eosinophil# 0.11 X10^3/uL; Eosinophils% 1.5 % (0-5); Hematocrit 35.5 % (37-47); Hemoglobin 11.6 g/dL (12.0-15.0); Lymphocyte # 2.21 X10^3/ul (0.83-4.51); Lymphocyte % 30.6 % (19-41); Mean Corp Hgb Conc 32.7 g/dL (32-36); Mean Corpuscular Hgb 29.5 pg (27.0-32.0); Mean Corpuscular Volume 90.3 fL (81-99); Mean Platelet Vol. 11.9 fl (6.2-12.0); Monocyte# 0.68 X10^3/uL; Monocyte% 9.4 % (0-10); NRBC Flagged by Analyzer 0 % (0-5); Neutrophil # 4.14 X10^3/uL (2.7-7.7); Neutrophil % 57.3 % (47-70); Platelet Count 196 K/mm3 (150-450); RBC Distribution Width CV 14.4 % (11.6-14.6); RBC Distribution Width SD 47.8 fl (35.1-43.9); Red Blood Count 3.93 M/mm3 (4.2-5.4); White Blood Count 7.2 K/mm3 (4.4-11.0)
[2024-02-21 14:15] LABS: Anion Gap 6 (5-15); BUN 13 mg/dL (7-18); BUN/Creat Ratio 20.7 RATIO (10-20); Calcium,Total 8.9 mg/dL (8.5-10.1); Chloride 108 mmol/L (98-107); Creatinine, Serum 0.63 mg/dL (0.55-1.02); EST Glomerular Filtration Rate 117 mL/min (>60); Est Glom Filt Rate - Afr Amer 141 mL/min (>60); Estimated Creatinine Clearance 162.58 ml/min; Glucose 78 mg/dL (74-106); Potassium 3.7 mmol/L (3.5-5.1); Sodium Level 140 mmol/L (136-145)
[2024-02-21 14:33] VITALS: BP 119/72; PULSE 79; RESP 16; TEMP 36.4; O2SAT 99
== END 2024-02-21 23:59 | disposition home or self-care (01) ==
LOC: MEDOUTP 13:03
PROVIDERS: Referring Provider Internal Medicine Infectious Disease; Visit Provider Internal Medicine Infectious Disease
DX: M00.9 Pyogenic arthritis, unspecified (principal)
CPT/HCPCS: 96365; 80048; 85025; A4216; J0696

== ENCOUNTER 2024-02-22 13:03 | Outpatient (CLI) | payer BC, SELFPAY ==
[2024-02-22 13:10] VITALS: BP 111/62; PULSE 77; RESP 18; TEMP 36.7; O2SAT 100
[2024-02-22] MEDS: Ceftriaxone 2 GM in 0.9% Normal Saline (50mL MB+) 50 ML IV (13:12)
[2024-02-22 13:50] VITALS: BP 95/68; PULSE 70; RESP 18; TEMP 36.7; O2SAT 100
== END 2024-02-22 13:42 | disposition home or self-care (01) ==
LOC: MEDOUTP 13:03 → PCU 13:04
PROVIDERS: Referring Provider Internal Medicine Infectious Disease; Visit Provider Internal Medicine Infectious Disease
DX: M00.9 Pyogenic arthritis, unspecified (principal)
CPT/HCPCS: 96365; J0696

== ENCOUNTER 2024-02-23 13:14 | Outpatient (CLI) | payer BC, SELFPAY ==
[2024-02-23] MEDS: Ceftriaxone 2 GM in 0.9% Normal Saline (50mL MB+) 50 ML IV (13:43)
[2024-02-23 13:47] VITALS: BP 115/82; PULSE 60; RESP 17; TEMP 36.8; O2SAT 100
== END 2024-02-23 14:51 | disposition home or self-care (01) ==
LOC: MEDOUTP 13:14 → PCU 13:15
PROVIDERS: Referring Provider Internal Medicine Infectious Disease; Visit Provider Internal Medicine Infectious Disease
DX: M00.9 Pyogenic arthritis, unspecified (principal)
CPT/HCPCS: 96365; J7040; J0696

== ENCOUNTER 2024-02-24 12:55 | Outpatient (CLI) | payer BC, SELFPAY ==
[2024-02-24] MEDS: Ceftriaxone 2 GM in 0.9% Normal Saline (50mL MB+) 50 ML IV (13:02)
[2024-02-24 13:05] VITALS: BP 137/76; PULSE 93; RESP 16; TEMP 36.3; O2SAT 100
[2024-02-24 14:15] VITALS: BP 124/67; PULSE 62
== END 2024-02-24 23:59 | disposition home or self-care (01) ==
LOC: MEDOUTP 12:55
PROVIDERS: Referring Provider Internal Medicine Infectious Disease; Visit Provider Internal Medicine Infectious Disease
DX: M00.9 Pyogenic arthritis, unspecified (principal)
CPT/HCPCS: 96365; A4216; J0696

== ENCOUNTER 2024-02-25 13:11 | Outpatient (CLI) | payer BC, SELFPAY ==
[2024-02-25] MEDS: Ceftriaxone 2 GM in 0.9% Normal Saline (50mL MB+) 50 ML IV (13:23)
[2024-02-25 13:25] VITALS: BP 124/69; PULSE 78; RESP 16; TEMP 36.1; O2SAT 100
[2024-02-25 14:32] VITALS: BP 103/72; PULSE 77; RESP 16; TEMP 36.2; O2SAT 100
== END 2024-02-25 23:59 | disposition home or self-care (01) ==
LOC: MEDOUTP 13:11
PROVIDERS: Referring Provider Internal Medicine Infectious Disease; Visit Provider Internal Medicine Infectious Disease
DX: M00.9 Pyogenic arthritis, unspecified (principal)
CPT/HCPCS: 96365; A4216; J0696

== ENCOUNTER 2024-02-26 12:52 | Outpatient (CLI) | payer BC, SELFPAY ==
[2024-02-26] MEDS: Ceftriaxone 2 GM in 0.9% Normal Saline (50mL MB+) 50 ML IV (12:57)
[2024-02-26 13:00] VITALS: BP 112/69; PULSE 81; RESP 16; TEMP 36.5; O2SAT 95
[2024-02-26 14:02] VITALS: BP 115/70; PULSE 72; RESP 14; TEMP 36.7; O2SAT 100
== END 2024-02-26 23:59 | disposition home or self-care (01) ==
LOC: MEDOUTP 12:52
PROVIDERS: Referring Provider Internal Medicine Infectious Disease; Visit Provider Internal Medicine Infectious Disease
DX: M00.9 Pyogenic arthritis, unspecified (principal)
CPT/HCPCS: 96365; J7050; A4216; J0696

== ENCOUNTER 2024-02-27 12:53 | Outpatient (CLI) | payer BC, SELFPAY ==
[2024-02-27 13:00] VITALS: BP 110/88; PULSE 80; RESP 16; TEMP 36.2; O2SAT 98
[2024-02-27] MEDS: 0.9% NaCl Peripheral Flush Adult/Peds IV ×2 (13:08→14:00)
[2024-02-27] MEDS: Ceftriaxone 2 GM in 0.9% Normal Saline (50mL Bag) 50 ML IV (13:09)
[2024-02-27 13:58] VITALS: BP 109/67; PULSE 82; RESP 16; TEMP 36.3; O2SAT 96
== END 2024-02-27 23:59 | disposition home or self-care (01) ==
PROVIDERS: Referring Provider Internal Medicine Infectious Disease; Visit Provider Internal Medicine Infectious Disease
DX: M00.9 Pyogenic arthritis, unspecified (principal)
CPT/HCPCS: 96365; J7050; A4216; J0696; J3490

== ENCOUNTER 2024-02-28 12:58 | Outpatient (CLI) | payer BC, SELFPAY ==
[2024-02-28 13:40] VITALS: BP 111/68; PULSE 77; RESP 16; TEMP 36.6; O2SAT 99; BMI 36.8
[2024-02-28] MEDS: Ceftriaxone 2 GM in 0.9% Normal Saline (50mL MB+) 50 ML IV (13:45)
[2024-02-28] MEDS: 0.9% NaCl IVPB Med Flush (250 mL) 15 ML IV (13:45)
[2024-02-28] MEDS: 0.9% NaCl Peripheral Flush Adult/Peds IV (14:36)
[2024-02-28 14:40] VITALS: BP 110/66; PULSE 75; RESP 14; TEMP 36.6; O2SAT 100
== END 2024-02-28 23:59 | disposition home or self-care (01) ==
LOC: MEDOUTP 12:58
PROVIDERS: Referring Provider Internal Medicine Infectious Disease; Visit Provider Internal Medicine Infectious Disease
DX: M00.9 Pyogenic arthritis, unspecified (principal)
CPT/HCPCS: 96365; 36592; J7050; A4216; J0696

== ENCOUNTER 2024-02-29 13:11 | Outpatient (CLI) | payer BC, SELFPAY ==
[2024-02-29] MEDS: Ceftriaxone 2 GM in 0.9% Normal Saline (50mL MB+) 50 ML IV (13:43)
[2024-02-29] MEDS: 0.9% NaCl IVPB Med Flush (250 mL) 15 ML IV (13:43)
[2024-02-29 13:45] VITALS: BP 113/67; PULSE 70; RESP 16; TEMP 36.7; O2SAT 100
[2024-02-29] MEDS: 0.9% NaCl Peripheral Flush Adult/Peds IV (14:32)
== END 2024-02-29 14:32 | disposition home or self-care (01) ==
LOC: MEDOUTP 13:13 → MS3 13:13
PROVIDERS: Referring Provider Internal Medicine Infectious Disease; Visit Provider Internal Medicine Infectious Disease
DX: M00.9 Pyogenic arthritis, unspecified (principal)
CPT/HCPCS: 96365; J7050; A4216; J0696

== ENCOUNTER 2024-03-01 13:14 | Outpatient (CLI) | payer BC, SELFPAY ==
[2024-03-01 13:19] VITALS: BP 96/62; PULSE 89; RESP 16; TEMP 36.6; O2SAT 98
[2024-03-01] MEDS: 0.9% NaCl IVPB Med Flush (250 mL) 15 ML IV (13:20)
[2024-03-01] MEDS: Ceftriaxone 2 GM in 0.9% Normal Saline (50mL MB+) 50 ML IV (13:20)
[2024-03-01] MEDS: 0.9% NaCl Peripheral Flush Adult/Peds IV ×2 (13:21→14:04)
== END 2024-03-01 14:09 | disposition home or self-care (01) ==
LOC: MEDOUTP 13:14 → MS3 13:15
PROVIDERS: Referring Provider Internal Medicine Infectious Disease; Visit Provider Internal Medicine Infectious Disease
DX: M00.9 Pyogenic arthritis, unspecified (principal)
CPT/HCPCS: 96365; J7050; A4216; J0696

== ENCOUNTER 2024-03-02 12:54 | Outpatient (CLI) | payer BC, SELFPAY ==
[2024-03-02 13:27] VITALS: BP 122/77; PULSE 74; RESP 14; TEMP 36.5; O2SAT 98; BMI 36.8
[2024-03-02] MEDS: Ceftriaxone 2 GM in 0.9% Normal Saline (50mL MB+) 50 ML IV (13:34)
[2024-03-02] MEDS: 0.9% NaCl Peripheral Flush Adult/Peds IV ×2 (13:35→14:22)
[2024-03-02] MEDS: 0.9% NaCl IVPB Med Flush (250 mL) 15 ML IV (13:35)
[2024-03-02 14:23] VITALS: BP 112/68; RESP 16
== END 2024-03-02 23:59 | disposition home or self-care (01) ==
LOC: MEDOUTP 12:54
PROVIDERS: Referring Provider Internal Medicine Infectious Disease; Visit Provider Internal Medicine Infectious Disease
DX: M00.9 Pyogenic arthritis, unspecified (principal)
CPT/HCPCS: 96365; J7050; A4216; J0696

== ENCOUNTER 2024-03-03 12:55 | Outpatient (CLI) | payer BC, SELFPAY ==
[2024-03-03] MEDS: Ceftriaxone 2 GM in 0.9% Normal Saline (50mL MB+) 50 ML IV (13:03)
[2024-03-03 13:04] VITALS: BP 104/58; PULSE 68; RESP 16; TEMP 36.3
[2024-03-03 14:02] VITALS: BP 107/71; PULSE 73; RESP 16
== END 2024-03-03 23:59 | disposition home or self-care (01) ==
LOC: MEDOUTP 12:55
PROVIDERS: Referring Provider Internal Medicine Infectious Disease; Visit Provider Internal Medicine Infectious Disease
DX: M00.9 Pyogenic arthritis, unspecified (principal)
CPT/HCPCS: 96365; J7050; A4216; J0696

== ENCOUNTER 2024-03-04 12:54 | Outpatient (CLI) | payer BC, SELFPAY ==
[2024-03-04] MEDS: Ceftriaxone 2 GM in 0.9% Normal Saline (50mL MB+) 50 ML IV (13:11)
[2024-03-04 13:12] VITALS: BP 122/83; PULSE 98; RESP 16; TEMP 36.6; O2SAT 95
[2024-03-04 14:15] VITALS: BP 116/65; PULSE 70
== END 2024-03-04 23:59 | disposition home or self-care (01) ==
LOC: MEDOUTP 12:54
PROVIDERS: Referring Provider Internal Medicine Infectious Disease; Visit Provider Internal Medicine Infectious Disease
DX: M00.9 Pyogenic arthritis, unspecified (principal)
CPT/HCPCS: 96365; J7050; A4216; J0696

== ENCOUNTER 2024-03-05 12:23 | Outpatient (CLI) | payer BC, SELFPAY ==
[2024-03-05] MEDS: Ceftriaxone 2 GM in 0.9% Normal Saline (50mL MB+) 50 ML IV (13:07)
[2024-03-05 13:10] VITALS: BP 123/83; PULSE 83; RESP 16; TEMP 36.7; O2SAT 100
[2024-03-05 14:37] VITALS: BP 133/93; PULSE 80; RESP 14; TEMP 36.6; O2SAT 99
== END 2024-03-05 23:59 | disposition home or self-care (01) ==
LOC: MEDOUTP 12:24
PROVIDERS: Referring Provider Internal Medicine Infectious Disease; Visit Provider Internal Medicine Infectious Disease
DX: M00.9 Pyogenic arthritis, unspecified (principal)
CPT/HCPCS: 96365; J7050; A4216; J0696

== ENCOUNTER 2024-03-31 08:30 | Outpatient (RCR) | payer BC, SELFPAY ==
--- NOTE | 2024-02-20 10:45 | HP.OTEVAL_ITS ---
Patient's Visit Information Visit Information Visit Information: EYAD ROCHA is a 33 year old F, referred to Occupational Therapy by Dr. Osito Wing MD, with a diagnosis of Pyogenic arthritis / septic left hand. Date of Evaluation: 02/19/24 Occupational Therapist: Stacey Jones, SAGR[place]/Sedrick, CHT Subjective Subjective: This 33 year old female was seen for OT eval with dx of left hand cat bite, pt states about 4-6 weeks ago and had a 2 or three surgeries to remove infection and currently on antibiotics. pt states she cleaned but next day she went to hospital and they did have to do sx. 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 ROM MP: right NF 0/80 left -5/40 PIP: right 0/110 left-40/105 DIP: right 0/70 left 0/55 ROM Comments: wound with .3cm wound length 1.5cm superficial pt demo with limited left composite fist Strength Vertical Boring Mill Operator: right 84# left 15# Lateral Pinch: right 18# left 10# Tripod Pinch: right 18# left 10# Quick DASH-Disab of Arm,Shoulder& Hand Quick DASH Score: 50.0000 Goals Goal:Daily scar massage when approriate: Yes Goal:ROM equal to unaffected hand: Yes Goal:Vertical Boring Mill Operator/Pinch strength at least 75% of unaffected hand: Yes Goal:No pain with affected hand use: Yes Goal:Full use of affected hand in daily activities including work: Yes Goal:Decrease scar hypersensitivity: Yes Rehabilitation General Assessment: pt currently demo with limited ROM of left MCP and PIP ROM due to recent sx limiting pts ability to perform ADLs and IADLS. pt would benefit from skilled OT services 1-2x week for 6 weeks to return pt to her PLOF. Today therapist ed. pt on AROM, PROM and scar mobilization-and cont.with water soak 3x a day. pt demo understanding- pt agrees to POC. Rehabilitation Potential: Good Anticipated Interventions Anticipated Interventions: A/AAROM/PROM, Scar Care, Triggerpoint Release, Desensitization and Wound Care Visit Plan Frequency: 1-2x /Week Duration: 6 Weeks TEXT: Thank you for the opportunity to evaluate your patient. For Medicare and Medicare HMO plans, please review the plan of care and approve it. It will need to be FAXED BACK to us at [phone] for Medicare purposes. Please let me know if there are questions or concerns regarding this plan of care. Physician Signature: Date:
--- NOTE | 2024-03-31 08:46 | HP.OTDCSUM ---
Discharge Summary D/C Summary: It has been my pleasure to treat EYAD ROCHA under orders from Dr. Osito Wing MD, for the diagnosis of Pyogenic arthritis / septic left hand for a total of 4 visit(s). Please see the following information for a summary of their discharge status. Overall Improvement % Improvement: 95 Objective Objective/Function: pt demo with left MF MCP flexion at 95* full ext. pt demo with left MF PIP flexion 100* left communications clerk strength 60# increase from 35# left lateral pinch 16# left tripod pinch 18# pt states she has returned to performing ADLs and IADLs at PLOF. pt has met OT goals Goals Patient Goals: Regain Mobility and Use Hand/Wrist/Arm Normally Again Goal:Daily scar massage when approriate: Yes Goal:ROM equal to unaffected hand: Yes Goal:Market Research Specialist/Pinch strength at least 75% of unaffected hand: Yes Goal:No pain with affected hand use: Yes Goal:Full use of affected hand in daily activities including work: Yes Goal:Decrease scar hypersensitivity: Yes Plan Plan: D/C D/C Information Discharge Comments: pt has done well in OT- has returned to using her hand at PLOF. pts goal has been met. pt d.c at this time- pt agrees with d/c d/c sentence: If there are questions or concerns regarding this patient's occupational therapy, please fell free to call me at [phone]. Thank you for the referral of this patient. Sincerely, Stacey Jones, OTR/L, CHT
== END 2024-03-31 19:00 | disposition home or self-care (01) ==
LOC: OT 08:30
PROVIDERS: Referring Provider Surgery Plastic and Reconstructive Surgery; Visit Provider Surgery Plastic and Reconstructive Surgery
DX: M00.9 Pyogenic arthritis, unspecified (principal)
CPT/HCPCS: 97110; 97140; 97166; 97530

== ENCOUNTER → 2024-08-10 | Outpatient (CLI) | payer BC, SELFPAY ==
[2024-08-10 10:23] LABS: Absolute Lymphocyte Count 2.01 X10^3/uL (0.83-4.51); Absolute Neutrophil Count 5.1 X10^3/uL (2.0-7.7); Basophil# 0.05 X10^3/uL; Basophil% 0.6 % (0-1); Eosinophils% 1.3 % (0-5); Hematocrit 40.5 % (37-47); Hemoglobin 13.6 g/dL (12.0-15.0); Lymphocyte # 2.01 X10^3/ul (0.83-4.51); Lymphocyte % 25.1 % (19-41); Mean Corp Hgb Conc 33.6 g/dL (32-36); Mean Corpuscular Hgb 31.3 pg (27.0-32.0); Mean Corpuscular Volume 93.3 fL (81-99); Mean Platelet Vol. 11.7 fl (6.2-12.0); Monocyte# 0.62 X10^3/uL; Monocyte% 7.8 % (0-10); NRBC Flagged by Analyzer 0 % (0-5); Neutrophil # 5.12 X10^3/uL (2.7-7.7); Neutrophil % 63.9 % (47-70); Platelet Count 252 K/mm3 (150-450); Red Blood Count 4.34 M/mm3 (4.2-5.4)
[2024-08-10 10:44] LABS: Hemoglobin A1c 5.2 % (<=5.6)
[2024-08-10 11:23] LABS: Ferritin 18 ng/mL (22-378); Iron 92 ug/dL (50-170); Iron Binding Capacity,Total 335 ug/dL (250-450); Iron Binding Capacity,Unsat 243 ug/dL (228-428); Vitamin B12 948 pg/mL (180-914)
[2024-08-10 14:49] LABS: ALB/GLOB Ratio 1.6 RATIO (0.9-2.4); AST(SGOT) 15 U/L (<=31); Alanine Aminotransfer ALT/SGPT 10 U/L (<=34); Albumin, Serum 4.3 g/dL (3.5-5.0); Alkaline Phosphatase 61 U/L (35-104); Anion Gap 13 (5-15); BUN 13 mg/dL (4-19); BUN/Creat Ratio 19.9 RATIO (10-20); Calcium 9.3 mg/dL (7.6-11.0); Calcium,Total 9.3 mg/dL (7.6-11.0); Carbon Dioxide 23.9 mmol/L (21.0-32.0); Chloride 102 mmol/L (98-108); Creatinine, Serum 0.65 mg/dL (0.70-1.20); EST Glomerular Filtration Rate 120 (>60); Globulin 2.7 g/dL (2.2-4.2); Glucose 86 mg/dL (70-99); Potassium 3.9 mmol/L (3.3-5.1); Protein, Total 6.9 g/dL (5.9-8.4); Sodium Level 139 mmol/L (133-145); Total Bilirubin 0.48 mg/dL (0.00-1.30)
[2024-08-10 19:36] LABS: Cholesterol 148 mg/dL (<=200); High Density Lipoprotein 68 mg/dL; Low Density Lipoprotein Calc. 67 mg/dL; Triglycerides 65 mg/dL; Very Low Density Lipoprotein 13 mg/dL (5-40); cholesterol:hdl ratio screen 2.19
[2024-08-13 07:07] LABS: Vitamin B1, Thiamine 126.5 nmol/L (66.5-200.0)
== END | disposition home or self-care (01) ==
PROVIDERS: Visit Provider Obstetrics & Gynecology
DX: Z98.890 Other specified postprocedural states (principal)
CPT/HCPCS: 36415; 80053; 80061; 82310; 82607; 82652; 82728; 83036; 83540; 83550; 84425; 84443; 85025

== ENCOUNTER → 2025-02-02 | Outpatient (CLI) | payer BC, SELFPAY ==
--- NOTE | 2025-02-02 14:24 | RAD_ITS ---
PROCEDURE: CERV SPINE 4 OR 5 VIEWS 02/02/2025 REASON FOR EXAM: CHRONIC NECK PAIN TECHNIQUE: Procedure Code: RADSPC Modality: DX Procedure: CERV SPINE 4 OR 5 VIEWS COMPARISON: None. FINDINGS: No evidence of fracture or subluxation. Alignment is anatomic, although there is straightening of the cervical lordosis which may be related to muscle spasm. No significant degenerative changes are present, with preserved disc spaces. No prevertebral soft tissue swelling, or unusual mineralization. RAD/Cerv Spine 4 or 5 Views IMPRESSION: No evidence of fracture, malalignment, or significant spondylotic changes. Reading Location: [id number]
[2025-02-02 15:25] LABS: Hematocrit 38.7 % (37-47); Hemoglobin 12.9 g/dL (12.0-15.0); Immature Granulocytes Count 0.020 X10^3/uL (0.0-0.0); Mean Corp Hgb Conc 33.3 g/dL (32-36); Mean Corpuscular Volume 94.9 fL (81-99); Mean Platelet Vol. 12.1 fl (6.2-12.0); NRBC Flagged by Analyzer 0 % (0-5); Platelet Count 223 K/mm3 (150-450); RBC Distribution Width CV 13.2 % (11.6-14.6); RBC Distribution Width SD 45.7 fl (35.1-43.9); Red Blood Count 4.08 M/mm3 (4.2-5.4); White Blood Count 8.1 K/mm3 (4.4-11.0)
[2025-02-02 18:05] LABS: AST(SGOT) 19 U/L (<=31); Alanine Aminotransfer ALT/SGPT 14 U/L (<=34); Albumin, Serum 4.3 g/dL (3.5-5.0); Alkaline Phosphatase 62 U/L (35-104); Anion Gap 12 (5-15); BUN 11 mg/dL (4-19); BUN/Creat Ratio 16.4 RATIO (10-20); Calcium,Total 9.4 mg/dL (7.6-11.0); Carbon Dioxide 21.9 mmol/L (21.0-32.0); Chloride 109 mmol/L (98-108); Globulin 2.5 g/dL (2.2-4.2); Glucose 71 mg/dL (70-99); Magnesium 2.1 mg/dL (1.5-2.2); Potassium 3.5 mmol/L (3.3-5.1)
== END | disposition home or self-care (01) ==
PROVIDERS: PCP Internal Medicine; Referring Provider Internal Medicine; Visit Provider Internal Medicine
DX: R25.2 Cramp and spasm (principal); M54.2 Cervicalgia; G89.29 Other chronic pain
CPT/HCPCS: 36415; 72050; 80053; 83735; 85025

== ENCOUNTER 2025-03-03 10:00 | Outpatient (RCR) | payer BC, SELFPAY ==
--- NOTE | 2025-02-10 11:42 | HP.PTEVAL_ITS ---
Patient's Visit Information Visit Information Visit Information: EYAD ROCHA is a 34 year old F referred to Physical Therapy by Dr. Lila Lundberg MD with a diagnosis of Chronic neck pain, cervicalgia. Date of Evaluation: 02/10/25 Physical Therapist: Terrance Davis, DPT, OCS, CSCS Visit Plan Frequency: 2x /Week Duration: 4-6 Weeks Plan: 2x/wek for 3-6 weeks... IE HEP: UT strtch 30" 3x daily and cervical retraction ext 10x 2x/day, body mechanics and postural review. Treat with MH ti B UT, STM to same with DTR to knots in UTs L>R, strength in RC, scapular , postural and into shoulder movers including pecs with pics and progressing to I home program. Use bands and weights that pt can use at home adn give pics. when appropriate. Subjective Subjective: PCP sent over. Years of chronic neck and general pain. 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 Central neck pain intermittently. Pain 0-4/10 and rubbing helps. sitting still makes it worse. Works nights and some downtime. Lifting patients is worse. Lingers a little bit. Basic ADLs all I. Hobbies: kids and dogs, 9 and 10. [place] to activity adn school. 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 H/o gastric bypass. No numbness or tingling, no problems coughing sneezing, no inconitnence. Pain nck pain: Pain Intensity (Out of 10): 1 Pain Intensity Range: 0 and 4 Objective Objective: Walks into PT I without gait deviations. Transfers I, good balancee. Posture is forward head slightly and slight protracted scap but not bad. Obvious atrophy in pecs giving prominence to sternum caudally. cervical aROm is hypermobile with 80 extension, 70 SB, 85 rotation. No pain. U AROM WFL and hypermobile without pain. Knots B UT are tender to the touch moderately L >R. reflexes 2/3 bi adn tri B. sensation UE WNL to gross light touch B. strength is 3 er shoulder, 3+ IR no pain. flexion 3+ no pain, abd 3+, bi and tri 4/5, wrists adn thumb 4-/5, no pain. - c/s compression. Balance/Special Test Scores Oswestry Neck Score: 6 Goals Goal 1:: I appropriate HEP for upper half strngth including posture to limit future problems Goal Time Frame: 4-6 Weeks Goal 2:: Pain in nck 50% better at 2/10 at worst and manageable Goal Time Frame: 4-6 Weeks Goal 3:: Work without increased pain in neck Goal Time Frame: 4-6 Weeks Goal 4:: oswstry score2 or better Goal Time Frame: 4-6 Weeks Rehabilitation Potential Physical Therapy Diagnosis: chronic pain and hypomobility effecting comfort and QOL. Rehabilitation Potential: Fair Anticipated Interventions Patient/Client Instruction: Educate patient on: Condition and Plan of Care For the Purpose of:: To decrease pain, To improve nutrient delivery to tissue, To improve muscle performance and motor function, To increase tolerance to ac tivity/condition/position and To improve ability of physical actions for home/community/work/leisure Therapeutic Exercise to Include: Strength training and Scapular Strength/St abilization For the Purpose of:: To decrease pain, To increase ROM and To improve nutrient delivery to tissue Manual Therapy Techniques to Include: Mobilization and Soft tissue mobilization For the Purpose of:: To improve nutrient delivery to tissue and To improve muscle performance and motor function Thermo therapy (hot pack): Yes For the Purpose of:: To decrease pain Text: Thank you for the opportunity to evaluate your patient. For Medicare and Medicare HMO plans, please review the plan of care and approve it. It will need to be FAXED BACK to us at [phone] for Medicare purposes. For Medicare only, by signing this I certify the plan of care. Please let me know if there are questions or concerns regarding this plan of care. Physician Signature: Da te:
--- NOTE | 2025-03-03 10:48 | HP.PTDCSUM ---
Discharge Summary D/C summary: It has been my pleasure to treat EYAD ROCHA referred by Dr. Lila Lundberg MD, with the diagnosis of Chronic neck pain, cervicalgia for a total of 7 visit(s). Discharge Date: 03/03/25 Please see the following information for a summary of their discharge status. Subjective Subjective: Pt. report reports no pain currently. Pt. reports being 90% better overall. Pt. reports occasionally waking up with increased pain, but not severe and not consistently. She denies N/T in either UE. Pain nck pain: Pain Intensity (Out of 10): 0 Overall Improvement % Improvement: 90 Objective Objective/Function: ROM: CERVICAL SPINE: no issues, patient has full motion. no pain with over pressure. Full B shoulder ROM, no effect Pt. has full strength in BUEs and cervical spine no pain noted. Pt. is working with minimal issues. Overall patient is pleased with progress. I educated patient to continue with her strengthening for postural control and stability. Pt. consents. Pt will be DC from PT as this point in time. Goals Goal 1:: I appropriate HEP for upper half strngth including posture to limit future problems Goal Progress: Goal Met Goal 2:: Pain in nck 50% better at 2/10 at worst and manageable Goal Progress: Goal Met Goal 3:: Work without increased pain in neck Goal Progress: Goal Met Goal 4:: oswstry score2 or better Goal Progress: Progressing Plan Plan: pt. to be DC to HEP at this point in time. D/C Information d/c sentence: If there are questions or concerns regarding this patient's physical therapy, please feel free to call me at [phone]. Thank you for the referral of this patient. Sincerely, Tung Valentineos, DPT Balance/Gait/Functional tests Balance/Special Test Scores Oswestry Neck Score: 5 Improvement % Improvement: 90
== END 2025-03-03 19:00 | disposition home or self-care (01) ==
LOC: PT 10:00
PROVIDERS: PCP Internal Medicine; Referring Provider Internal Medicine; Visit Provider Internal Medicine
DX: M54.2 Cervicalgia (principal); G89.29 Other chronic pain
CPT/HCPCS: 97110; 97140; 97161; 97530